=== PATIENT | female | born 1940 | race Asian ===

== ENCOUNTER 2017-04-15 18:23 | Inpatient (IN) | payer MEDICARE, OTHER ==
[~2017-04-15] VITALS: Ht 165.1 cm; Wt 59.1 kg
[~2017-04-15 18:23] MED LIST: AMLO5TAB4 PO; ASPI81TA3 PO; CLON0.1T14 PO; DILT180C75 PO; METF500T4 PO; MULT-754 PO; OMEP20CA16 PO; SYN112 PO
--- NOTE | 2017-04-15 19:11 | ERA ---
ER Documentation Chief Complaint Date/Time DATE: 04/15/17 TIME: 19:11 Chief Complaint chest pain, SOB and vomit since 4:30pm. Denies abd pain. HPI This is a 76-year-old woman brought in by family member for epigastric abdominal pain (chest pain) and complaints of multiple episodes of clear nonbloody nonbilious emesis over the last 2-3 days. Family member who is at the bedside states she began using peroxide teen just a few days ago for chronic depression and anxiety. She has had no fevers or chills, no loss of consciousness, no diarrhea, no blood per rectum or melena. Today she has been feeling weak and has been generally less responsive. ROS All systems reviewed and are negative except as per history of present illness. Medications Home Meds Active Scripts Diltiazem Hcl* (Cardizem CD*) 180 Mg Cap.sr.24h, 180 MG PO DAILY, #30 CAP 1 Refill Prov:EARL VALENCIA MD 07/02/16 Omeprazole* (Omeprazole*) 20 Mg Capsule.dr, 20 MG PO BID, #60 CAP Prov:EARL VALENCIA MD 07/02/16 Reported Medications Clonidine Hcl* (Catapres*) 0.1 Mg Tablet, 0.1 MG PO Q4H Y for HTN, TAB 07/01/16 Levothyroxine Sodium* (Levothyroxine Sodium*) 112 Mcg Tablet, 112 MCG PO BEFORE BREAKFAST, #30 TAB 07/01/16 Metformin* (Glucophage*) 500 Mg Tab, 500 MG PO WITH LUNCH DINNER, #60 TAB 05/23/16 Amlodipine Besylate* (Norvasc*) 5 Mg Tablet, 5 MG PO DAILY, TAB 05/23/16 Multivitamins W-Minerals/Lut (Centrum Silver Tablet) 1 Tab Tablet, 1 TAB PO BID 02/20/12 Aspirin* (Aspirin* Chew) 81 Mg Tab.chew, 81 MG PO DAILY 02/20/12 Allergies Allergies: Coded Allergies: No Known Allergy (Unverified , 02/20/12) PMhx/Soc Diabetes mellitus, hypothyroidism, hypercholesterolemia, hypertension, obstructive sleep apnea, neurofibromatosis, status post cholecystectomy, cholecystectomy, depression/anxiety with recent paroxetine use History of Surgery: Yes (hernia and thyroid, cataract surgery) Anesthesia Reaction: No Hx Neurological Disorder: No Hx Respiratory Disorders: Yes (COPD) Hx Cardiac Disorders: Yes (HTN, HYPERLIPIDS) Hx Psychiatric Problems: Yes (DEPRESSION) Hx Miscellaneous Medical Probl: Yes (DM) Hx Alcohol Use: No Hx Substance Use: No Hx Tobacco Use: No Smoking Status: Never smoker FmHx Family History: No diabetes Physical Exam Vitals Vital Signs Date Time Temp Pulse Resp B/P Pulse Ox O2 Delivery O2 Flow Rate FiO2 04/15/17 21:08 81 16 144/66 99 Room Air 04/15/17 19:38 83 18 162/79 97 Room Air 04/15/17 18:29 98.5 89 18 185/90 97 Physical Exam GENERAL: Well-developed, appears weak, dehydrated, eyes closed, afebrile HEENT: Dry mucous membranes, pink conjunctiva, no cervical spine tenderness or step-off deformities, no goiter, no jaundice or icterus, extraocular movements intact without pain. NEURO: Eyes closed, able to answer simple questions and follow simple commands, A & O 2, no focal deficits or facial asymmetry, no seizure activity CARDIAC: Regular rate and rhythm, no murmurs rubs or gallops LUNGS: Clear bilaterally no wheezing crackles or stridor ABDOMEN: Soft nontender, no guarding, no rigidity, no rebound, no psoas sign no obturator sign. Normoactive bowel sounds SKIN: Warm and dry to touch, no abrasions, contusions, or hematomas, no lacerations, no ecchymosis, no target lesions, and without ulcers EXTREMITIES: No clubbing cyanosis or edema, calves are bilaterally symmetrical, no Homans sign, no popliteal cord sign. Distal pulses equal and bilateral PSYCH: Unable to assess Result Diagram: 04/15/17183904/15/171839 Results 24 hrs Laboratory Tests Test 04/15/17 18:40 White Blood Count 9.610^3/ul Red Blood Count 4.2610^6/ul Hemoglobin 13.0g/dl Hematocrit 36.7% Mean Corpuscular Volume 86.2fl Mean Corpuscular Hemoglobin 30.5pg Mean Corpuscular Hemoglobin Concent 35.4g/dl Red Cell Distribution Width 11.4% Platelet Count 38981^3/UL Mean Platelet Volume 8.5fl Neutrophils % 70.6% Lymphocytes % 16.8% Monocytes % 9.5% Eosinophils % 2.2% Basophils % 0.4% Nucleated Red Blood Cells % 0.0/100WBC Neutrophils # 6.810^3/ul Lymphocytes # 1.610^3/ul Monocytes # 0.910^3/ul Eosinophils # 0.210^3/ul Basophils # 0.010^3/ul Nucleated Red Blood Cells # 0.010^3/ul Prothrombin Time 12.8Sec Prothrombin Time Ratio 1.0 INR International Normalized Ratio 0.96 Sodium Level 113mmol/L Potassium Level 3.7mmol/L Chloride Level 77mmol/L Carbon Dioxide Level 25mmol/L Anion Gap 15 Blood Urea Nitrogen 11mg/dl Creatinine 0.65mg/dl Glucose Level 145mg/dl Calcium Level 9.1mg/dl Total Bilirubin 0.0mg/dl Direct Bilirubin 0.00mg/dl Indirect Bilirubin 0.0mg/dl Aspartate Amino Transf (AST/SGOT) 30IU/L Alanine Aminotransferase (ALT/SGPT) 45IU/L Alkaline Phosphatase 97IU/L Troponin I < 0.012ng/ml Total Protein 8.2g/dl Albumin 4.9g/dl Globulin 3.30g/dl Albumin/Globulin Ratio 1.48 Lipase 151U/L Thyroid Stimulating Hormone (TSH) 1.740MIU/L Free Thyroxine 1.73ng/dl Free Triiodothyronine (T3) pg/mL 3.22pg/ml Current Medications Medications (Trade) Dose Ordered Sig/Keely Route PRN Reason Start Time Stop Time Status Last Admin Dose Admin Sodium Chloride (NS) 1,000 ml @ 1,000 mls/hr Q1H STAT IV 04/15/17 19:19 04/15/17 20:18 DC 04/15/17 19:35 Ondansetron HCl (Zofran Inj) 4 mg ONCE STAT IV 04/15/17 19:19 04/15/17 19:20 DC 04/15/17 19:34 Alprazolam 0.5 mg 0.5 mg ONCE ONCE PO 04/15/17 19:30 04/15/17 19:31 DC 04/15/17 19:34 Sodium Chloride 200 ml @ 100 mls/hr Q2H IV 04/15/17 20:00 04/15/17 20:27 Sodium Chloride (NS) 1,000 ml @ 100 mls/hr Q10H IV 04/15/17 20:38 IV Flush (NS 3 ml) 3 ml PER PROTOCOL IV 04/15/17 21:00 Ondansetron HCl (Zofran Inj) 4 mg Q6H PRN IV NAUSEA AND/OR VOMITING 04/15/17 21:00 Acetaminophen (Tylenol Tab) 650 mg Q6H PRN PO PAIN LEVEL 1-3 OR FEVER 04/15/17 21:00 Morphine Sulfate (morphine) 2 mg Q4H PRN IV PAIN LEVEL 7-10 04/15/17 21:00 Famotidine (Pepcid Iv) 20 mg DAILY IV 04/15/17 21:00 Enoxaparin Sodium (Lovenox) 30 mg DAILY SC 04/16/17 09:00 [facility] IV line was established patient was placed on compliance monitor rhythm strip revealed a sinus rhythm at about 80 bpm with upright P and T waves. Patient was afebrile. I administered 1 L normal saline intravenously and Zofran 4 mg IV for nausea, for suspected anxiety I administered alprazolam 0.5 mg p.o. Given the patient's epigastric pain and multiple episodes of vomiting I ordered a CT scan of the abdomen and pelvis. There was no acute inflammatory infectious pathology noted, no bowel obstruction noted. Please refer to radiologist dictation for full report. CBC was unremarkable, electrolytes revealed severe hyponatremia at 113, liver function tests are normal, troponin was negative. Thyroid panel was within normal limits. Given the patient's mental status changes and severe hyponatremia I ordered 3% hypertonic saline solution 200 cc over one hour. EKG performed, read by me revealed a normal sinus rhythm at 81 bpm with normal axis and a first-degree atrial ventricular block and a TN interval of 250 ms, narrow QRS complex, no concerning ST elevations or depressions noted. Patient recently started using paroxetine and was found to be altered and severely hyponatremic. Severe hyponatremia and SIADH syndrome are both adverse reactions of paroxetine use especially early on. I suspect her vomiting potentiated her hyponatremia. Patient will be admitted to telemetry setting for continued medical management and possible endocrinology consultation. Critical Care: Time: 45 minutes, this was time separate from other billable procedures. Treatments/Evaluations: Close monitoring and treatment of unstable vital signs, cardiorespiratory, and neurologic status, while maintaining tight balance of fluid, respiratory, and cardiac interventions. Departure Diagnosis: Primary Impression: Acute metabolic encephalopathy Additional Impressions: Acute hyponatremia SSRI (selective serotonin reuptake inhibitor) causing adverse effect in therapeutic use Qualified Code: T43.225A - SSRI (selective serotonin reuptake inhibitor) causing adverse effect in therapeutic use, initial encounter Dehydration Vomiting Qualified Code: R11.2 - Intractable vomiting with nausea, unspecified vomiting type First degree atrioventricular block Condition: Serious NEW SILVA MD Apr 15, 2017 19:11
[2017-04-15] MEDS ORDERED: ONDANSETRON 4 MG INJ IV STA (19:19)
[2017-04-15] MEDS ORDERED: SOD CHLORIDE 0.9% 1,000 ML IV STA (19:19)
[2017-04-15 19:26] LABS: ADD SCAN DIFF NO
[2017-04-15 19:28] LABS: BASOPHILS % 0.4 % (0.0-2.0); EOSINOPHILS # 0.2 10^3/ul (0.0-0.5); EOSINOPHILS % 2.2 % (0.0-7.0); HEMATOCRIT 36.7 % (37.0-47.0); LYMPHOCYTES # 1.6 10^3/ul (0.8-2.9); LYMPHOCYTES % 16.8 % (15.0-51.0); MEAN CORPUSCULAR HEMOGLOBIN 30.5 pg (29.0-33.0); MEAN CORPUSCULAR HGB CONC 35.4 g/dl (32.0-37.0); MEAN CORPUSCULAR VOLUME 86.2 fl (82.0-101.0); MEAN PLATELET VOLUME 8.5 fl (7.4-10.4); MONOCYTE # 0.9 10^3/ul (0.3-0.9); MONOCYTES % 9.5 % (0.0-11.0); NEUTROPHIL # 6.8 10^3/ul (1.6-7.5); NEUTROPHILS % 70.6 % (39.0-77.0); PLATELET COUNT 295 10^3/UL (140-415); RED BLOOD COUNT 4.26 10^6/ul (4.20-5.40); RED CELL DISTRIBUTION WIDTH 11.4 % (11.5-14.5); WHITE BLOOD COUNT 9.6 10^3/ul (4.8-10.8)
[2017-04-15] MEDS ORDERED: ALPRAZOLAM 0.25 MG TAB PO ONE (19:30)
[2017-04-15 19:33] LABS: ALANINE AMINOTRANSFERASE 45 IU/L (13-69); ALBUMIN 4.9 g/dl (3.3-4.9); ALBUMIN/GLOBULIN RATIO 1.48; ALKALINE PHOSPHATASE 97 IU/L (42-121); ANION GAP 15 (8-16); ASPARTATE AMINO TRANSFERASE 30 IU/L (15-46); BLOOD UREA NITROGEN 11 mg/dl (7-20); CALCIUM 9.1 mg/dl (8.4-10.2); CARBON DIOXIDE 25 mmol/L (21-31); CHLORIDE 77 mmol/L (97-110); CREATININE 0.65 mg/dl (0.44-1.00); GLUCOSE 145 mg/dl (70-220); POTASSIUM 3.7 mmol/L (3.5-5.1); TOTAL PROTEIN 8.2 g/dl (6.1-8.1)
[2017-04-15 19:40] LABS: SODIUM 113 mmol/L (135-144)
[2017-04-15 19:49] LABS: TROPONIN-I < 0.012 ng/ml (0.00-0.12)
[2017-04-15 19:59] LABS: INR 0.96; PROTIME 12.8 Sec (12.2-14.2)
--- NOTE | 2017-04-15 20:15 | RADRPT ---
PROCEDURE: CT Abdomen and Pelvis without contrast. CLINICAL INDICATION: Abdominal and pelvic pain. TECHNIQUE: CT scan of the abdomen and pelvis without contrast was performed. Coronal and sagittal reformatted images were obtained from the axial source images. Images were reviewed on a high-[employer] PACS workstation. Total exam DLP is 439.20 mGy-cm. CTDIvol is 9.17 mGy. One or more of the fo llowin dose reduction techniques were used: Automated exposure control, adjustment of the mA and/or kV according to patient size, use of iterative reconstruction technique. COMPARISON: None. FINDINGS: The lung bases are normal. There is no pleural effusion or pericardial effusion. The heart is enla rged. The liver is normal in size and attenuation. There is no focal hepatic lesion. The gallbladder is not visualized indicating it is probably surgically absent. The spleen is normal in size. There is no focal splenic lesion. Both adrenals are normal with no enlargement or mass. The pancreas is unremarkable with no mass or evidence of pancreatitis. There is no renal mass or hydronephrosis. There is no renal calculus or ureteral calculus. The abdominal aorta is not dilated. There is calcification in the aorta consistent with atheroscler osis. There is no retroperitoneal lymphadenopathy or mass. There is no pelvic lymphadenopathy or mass. There is a Lippes Loop IUD in satisfactory position with in the endometrial canal. The bladder and distal ureters are normal. The periappendiceal region is unremarkable with no evidence of appendicitis. The bowel and mesentery are normal. There is no free fluid or free gas. There are degenerative changes of the spine and hips. There is no fracture or lytic lesion. The os seous structures are otherwise unremarkable with no fracture or lytic lesion. IMPRESSION: 1. Cardiomegaly. 2. Gallbladder not seen indicating it is probably surgically absent. 3. Atherosclerosis. 4. IUD in satisfactory position. 5. Degenerative changes of the spine and hips. 6. Otherwise unremarkable noncontrast CT scan of the abdomen and pelvis. RPTAT: QQ .Donavan Barrera MD, MD Date Time Electronically viewed and signed by .Donavan Barrera MD, on 04/15/2017 20:14 .R/
[2017-04-15] MEDS: NACL 3% 200 ML IV SCH ×2 (20:27→22:00)
[2017-04-15] MEDS ORDERED: ONDANSETRON 4 MG INJ IV PRN (21:00)
[2017-04-15] MEDS ORDERED: NACL 0.9% 3 ML SYG IV SCH (21:00)
[2017-04-15] MEDS ORDERED: morphine 2 MG INJ IV PRN (21:00)
[2017-04-15 21:17] LABS: FREE T3 3.22 pg/ml (2.77-5.27)
[2017-04-15 21:31] LABS: THYROID STIMULATING HORMONE 1.74 MIU/L (0.465-4.680)
[2017-04-15] MEDS: FAMOTIDINE 20 MG INJ IV SCH (22:03)
[2017-04-15] MEDS: SOD CHLORIDE 0.9% 1,000 ML IV SCH (22:09)
[2017-04-15] MEDS ORDERED: SOD CHLORIDE 0.9% 1,000 ML IV ONE (22:30)
[2017-04-16 02:29] LABS: ADD UMIC YES; UR ASCORBIC ACID NEGATIVE (NEGATIVE); UR BILIRUBIN (Dip) NEGATIVE (NEGATIVE); UR BLOOD (Dip) NEGATIVE (NEGATIVE); UR CLARITY CLEAR (CLEAR); UR COLOR STRAW (YELLOW); UR GLUCOSE (Dip) 1+ mg/dL (NEGATIVE); UR KETONES (Dip) NEGATIVE (NEGATIVE); UR LEUKOCYTE ESTERASE (Dip) NEGATIVE Leu/ul (NEGATIVE); UR NITRITE (Dip) NEGATIVE (NEGATIVE); UR RBC 6 /HPF (0-5); UR SPECIFIC GRAVITY (Dip) 1.008 (1.003-1.030); UR TOTAL PROTEIN (Dip) 2+ mg/dl (NEGATIVE); UR UROBILINOGEN (Dip) NEGATIVE (NEGATIVE)
[2017-04-16 05:49] LABS: ADD SCAN DIFF NO
[2017-04-16 05:53] LABS: BASOPHILS % 0.5 % (0.0-2.0); EOSINOPHILS # 0.2 10^3/ul (0.0-0.5); EOSINOPHILS % 2.3 % (0.0-7.0); HEMATOCRIT 35.2 % (37.0-47.0); HEMOGLOBIN 12.4 g/dl (12.0-16.0); LYMPHOCYTES # 1.2 10^3/ul (0.8-2.9); MEAN CORPUSCULAR HEMOGLOBIN 31.1 pg (29.0-33.0); MEAN CORPUSCULAR HGB CONC 35.2 g/dl (32.0-37.0); MEAN CORPUSCULAR VOLUME 88.2 fl (82.0-101.0); MEAN PLATELET VOLUME 8.5 fl (7.4-10.4); MONOCYTES % 11.9 % (0.0-11.0); NEUTROPHIL # 5.6 10^3/ul (1.6-7.5); NEUTROPHILS % 69.9 % (39.0-77.0); PLATELET COUNT 271 10^3/UL (140-415); RED BLOOD COUNT 3.99 10^6/ul (4.20-5.40); RED CELL DISTRIBUTION WIDTH 11.6 % (11.5-14.5)
[2017-04-16 06:21] LABS: ALBUMIN 4.3 g/dl (3.3-4.9); ALBUMIN/GLOBULIN RATIO 1.65; BILIRUBIN,INDIRECT 0.2 mg/dl (0-1.1); BILIRUBIN,TOTAL 0.2 mg/dl (0.2-1.3); CALCIUM 8.2 mg/dl (8.4-10.2); CREATININE 0.63 mg/dl (0.44-1.00); POTASSIUM 4.1 mmol/L (3.5-5.1); TOTAL PROTEIN 6.9 g/dl (6.1-8.1)
[2017-04-16 08:08] VITALS: TEMP 98.3
[2017-04-16] MEDS: SOD CHLORIDE 0.9% 1,000 ML IV SCH ×2 (08:27→16:38)
[2017-04-16] MEDS: ENOXAPARIN 30 MG/0.3 ML SYG SC SCH (09:00)
[2017-04-16 09:21] VITALS: BP 168/79; RESP 16
[2017-04-16 09:30] VITALS: Ht 165.1 cm; Wt 59.1 kg
[2017-04-16] MEDS: FAMOTIDINE 20 MG INJ IV SCH (09:30)
[2017-04-16] MEDS ORDERED: DEXTROSE 50% 50 ML SYRINGE IV PRN ×2 (11:30)
[2017-04-16] MEDS ORDERED: GLUCOSE GEL 15 GRAM TUBE PO PRN ×2 (11:30)
[2017-04-16] MEDS ORDERED: GLUCAGON 1 MG INJ IM PRN (11:30)
[2017-04-16] MEDS ORDERED: GLUCOSE GEL 15 GRAM TUBE BUCCAL PRN (11:30)
[2017-04-16] MEDS ORDERED: INSULIN ASPART [NOVOLOG] 3 ML PEN SC SCH ×2 (12:15→18:00)
[2017-04-16] MEDS ORDERED: LOSA50TA6 PO (12:31)
[2017-04-16] MEDS ORDERED: PARO-37 PO (12:31)
[2017-04-16] MEDS ORDERED: TRAM50TA2 PO (12:31)
[2017-04-16] MEDS ORDERED: LOVA40TA PO (12:31)
[2017-04-16] MEDS ORDERED: [UNRECOGNIZED DRUG - CODE] MC (12:31)
[2017-04-16] MEDS ORDERED: RAME8TAB10 PO (12:31)
[2017-04-16] MEDS ORDERED: FLUT16SP17 NASAL (12:31)
--- NOTE | 2017-04-16 16:41 | HP ---
DATE OF ADMISSION: 04/16/2017 CHIEF COMPLAINT: Chest pain, shortness of breath, nausea, and vomiting. HISTORY OF PRESENT ILLNESS: The patient is a 76-year-old [place]cu[place] female with history of hypothyroi dism, status post thyroidectomy many years ago, hypertension, diabetes, COPD, and depression. The francisco javier rosa presented to the emergency room with complaints of epigastric abdominal pain and multiple epi sodes of clear, nonbloody, nonbilious emesis over the last couple of days. The patient stated that she had emesis after ingestion of food. The patient also started on new medication of paroxetine by primary care physician for depression and anxiety. On the evaluation in the emergency room, the mercy hansen had a low sodium, was given IV fluids with no leukocytosis, no fevers. The patient underwent a CT of the abdomen and pelvis which revealed cardiomegaly, absent gallbladder, atherosclerosis, IUD in satisfactory position, degenerative changes of the spine and hips. Otherwise, unremarkable nonc ontrast CT of abdomen and pelvis. The patient was given hypertonic saline for hyponatremia with imp rovement in sodium. The patient also underwent a 12-lead EKG which revealed sinus rhythm with first degree atrioventricular block. The patient's troponin was 0.012 on admission. The patient was giv en Zofran for nausea, and the patient was admitted for further evaluation and management to medical surgical floor. PAST MEDICAL HISTORY: Per HPI. PAST SURGICAL HISTORY: Status post hernia repair many years ago, status post thyroidectomy, status post cholecystectomy. FAMILY HISTORY: Noncontributory. SOCIAL HISTORY: The patient lives at home with her family. The patient denies any tobacco use, den ies any alcohol use, denies any illicit drug use. ALLERGIES: NO KNOWN ALLERGIES. HOME MEDICATIONS: Include 1. Oxybutynin. 2. Paroxetine. 3. Lovastatin. 4. Fluticasone nasal spray. 5. Rozerem. 6. Tramadol p.r.n. 7. Levothyroxine. 8. Omeprazole. 9. Cozaar 10. Amlodipine. 11. Metformin. 12. Centrum silver multivitamins. 13. Aspirin. The patient does not remember the exact dose. REVIEW OF SYSTEMS: A 12-point review of systems is negative unless what mentioned in the HPI. PHYSICAL ASSESSMENT: GENERAL: Well-developed, well-nourished female in no acute distress. VITAL SIGNS: Temperature is 98.7, pulse is 69, blood pressure 168/79, respiratory rate 16, oxygen s aturation 99% on room air. HEENT: Head is atraumatic, normocephalic. Pupils equal, round, reactive to light and accommodation . Oral mucosa is pink and moist. NECK: Supple. No cervical lymphadenopathy, no thyromegaly. CHEST: Lungs clear bilaterally. There are no rhonchi, wheezes, rales noted. CARDIOVASCULAR: Normal S1, S2. No murmurs, gallops, clicks, rubs noted. ABDOMEN: Round, soft, nondistended, nontender. Bowel sounds present. No guarding, no rebound tend erness. EXTREMITIES: No edema, clubbing, cyanosis. SKIN: There is no rash, petechiae noted. NEUROLOGIC: The patient is awake, alert, and oriented x4. No focal deficits noted. Motor strength 5/5 in all extremities. LABORATORY DATA: On admission, CBC: White blood cells 9.6, hemoglobin 13.0, hematocrit 36.7, plate lets 295. Chemistry: Sodium is 113. Repeat Sodium is 134, potassium 3.7, chloride 77, carbon diox richard 25, anion gap 15, BUN 11, creatinine 0.65, glucose 145, calcium 9.1, AST 30, ALT 45, alkaline ph osphatase 97, lipase 151. ASSESSMENT AND PLAN: 1. Intractable nausea and vomiting. We will continue Zofran p.r.n. for nausea and Pepcid for pepti c ulcer disease prophylaxis. Dr. Lopez will be following the patient from gastroenterology consult ation. 2. Chest pain, rule out acute coronary syndrome. We will obtain cardiac enzymes x3. 3. Hypothyroidism. We will continue Synthroid. 4. Possible adverse reaction to selective serotonin reuptake inhibitor. We will hold paroxetine fo r now. 5. Acute hyponatremia, resolving. 6. Acute metabolic encephalopathy secondary to severe hyponatremia. 7. Chronic obstructive pulmonary disease. We will continue Advair, continue breathing treatment p. r.n. for shortness of breath. 8. Hypertension. Continue patient's home antihypertensive medication. 9. Diabetes mellitus. Continue metformin and NovoLog per mild algorithm sliding scale, carbohydrat e-controlled diet. Further recommendations based on clinical course. Plan of care discussed with Dr. Hernandez. Dictated By: OVIDIO YBARRA [employer]PORATE [employer] PREPARER for ROSIE HERNANDEZ MD SR/EARLENE Conf#: [id number] DID#: [id number]
[2017-04-16] MEDS: metFORMIN 500 MG TAB GTB SCH (17:29)
--- NOTE | 2017-04-16 18:40 | CONS ---
DATE OF ADMISSION: 04/16/2017 DATE OF CONSULTATION: 04/16/[address] Marshall and Dr. Zaman: Thank you for asking me to see Mrs. Lee in GI consultation. HISTORY OF PRESENT ILLNESS: The patient, as you know, is a 76-year-old Sudanese female who is admit bettye to the hospital because of history of persistent vomiting and has been going on for the past 1 w [place] [facility]. Also, she has difficulty in swallowing the food and would get stuck in the throat. She needs to drink a lot of water to get the food down. She has significant heartburn from time to time. REVIEW OF SYSTEM: Indicates she has history of diabetes, high cholesterol, hypertension, hypothyroi dism, sleep apnea, neurofibromatosis, granulomatous bronchitis, status post cholecystectomy. MEDICATIONS PRIOR TO THE ADMISSION INCLUDE: 1. Omeprazole. 2. Hydralazine. 3. Levothyroxine. 4. Metformin. 5. Losartan. 6. Aspirin. 7. Amlodipine. 8. Lovastatin. SOCIAL HISTORY: The patient does not smoke or drink. PHYSICAL EXAMINATION: GENERAL: The patient is a 76-year-old Sudanese female who at this time is alert, well built. VITAL SIGNS: She is afebrile. CARDIOVASCULAR: Normal heart sounds. RESPIRATORY: Normal breath sounds. ABDOMEN: Showed unremarkable findings. LABORATORY WORKUP: WBC count is 8000, hemoglobin 12.4. Sodium is 134, potassium 4.1, bilirubin 0.2 8, AST 26, ALT 32, alkaline phosphatase 66, lipase is 151. CAT scan of the abdomen shows evidence o f cardiomegaly, absent gallbladder from the surgery, IUD replaced and arthritis. CLINICAL IMPRESSION: The patient presenting with history of persistent vomiting, rule out diabetic gastroparesis, rule out peptic ulcer disease, esophagitis. Rule out Petra of the esophagus, rule out choledocholithiasis, which I doubt very much other problems as mentioned above. PLAN: Recommend EGD and recommend a liver panel to be repeated. Once again, Dr. Zaman, thank you for this consultation. Dictated By: MARCIO GRAHAM/NTS Conf#: [id number] DID#: [id number] CC: EARL VALENCIA MD;*EndCC*
[2017-04-16 19:56] VITALS: BP 166/74; RESP 18
[2017-04-16] MEDS: ACCU-CHEK XX SCH (21:00)
[2017-04-16] MEDS: hydrALAzine 20 MG INJ IV PRN (21:24)
[2017-04-16] MEDS: SALMETEROL/FLUTICASONE 250/50 INHA INH SCH (21:25)
[2017-04-17] VITALS (13 sets, daily range): BP systolic 132–181; BP diastolic 63–86; PULSE 75–108; RESP 15–23
[2017-04-17] MEDS: SOD CHLORIDE 0.9% 1,000 ML IV SCH ×5 (01:00→22:38)
[2017-04-17] MEDS: ACCU-CHEK XX SCH ×5 (01:03→21:00)
[2017-04-17] MEDS ORDERED: ACCU-CHEK XX SCH (02:00)
--- NOTE | 2017-04-17 02:02 | RADRPT ---
PROCEDURE: XR Chest. CLINICAL INDICATION: Preoperative evaluation. TECHNIQUE: Single frontal view of the chest. COMPARISON: 07/01/2016. FINDINGS: Cardiomegaly with atherosclerotic calcifications in the tortuous thoracic aorta. New mild right reena g base atelectasis versus airspace disease. previously seen atelectasis at the left lung base is re solved. The lungs are clear. No signs of pleural fluid or pneumothorax are seen. The osseous structu res and soft tissues are unremarkable. IMPRESSION: 1. Cardiomegaly and calcified tortuous thoracic aorta. 2. Mild right lung base atelectasis versus airspace disease. RPTAT: [facility] Physician Branden Date Time Electronically viewed and signed by Physician Branden on 04/17/2017 02:02 RS/
[2017-04-17 05:59] LABS: ADD SCAN DIFF NO
[2017-04-17 06:20] LABS: BASOPHIL # 0.1 10^3/ul (0.0-0.1); BASOPHILS % 0.9 % (0.0-2.0); EOSINOPHILS # 0.4 10^3/ul (0.0-0.5); EOSINOPHILS % 5.2 % (0.0-7.0); HEMATOCRIT 36.8 % (37.0-47.0); HEMOGLOBIN 12.6 g/dl (12.0-16.0); LYMPHOCYTES # 1.2 10^3/ul (0.8-2.9); LYMPHOCYTES % 15.3 % (15.0-51.0); MEAN CORPUSCULAR HGB CONC 34.2 g/dl (32.0-37.0); MEAN CORPUSCULAR VOLUME 90.4 fl (82.0-101.0); MEAN PLATELET VOLUME 8.8 fl (7.4-10.4); MONOCYTE # 0.8 10^3/ul (0.3-0.9); MONOCYTES % 10.9 % (0.0-11.0); NEUTROPHIL # 5.1 10^3/ul (1.6-7.5); NEUTROPHILS % 67.2 % (39.0-77.0); PLATELET COUNT 287 10^3/UL (140-415); RED BLOOD COUNT 4.07 10^6/ul (4.20-5.40); WHITE BLOOD COUNT 7.5 10^3/ul (4.8-10.8)
[2017-04-17 07:07] LABS: CALCIUM 8.3 mg/dl (8.4-10.2); CREATININE 0.72 mg/dl (0.44-1.00); POTASSIUM 3.8 mmol/L (3.5-5.1)
[2017-04-17] MEDS: metFORMIN 500 MG TAB GTB SCH (08:05)
[2017-04-17] MEDS: SALMETEROL/FLUTICASONE 250/50 INHA INH SCH ×2 (08:31→22:03)
[2017-04-17] MEDS: FAMOTIDINE 20 MG INJ IV SCH (08:32)
[2017-04-17] MEDS: hydrALAzine 20 MG INJ IV PRN ×2 (08:32→22:09)
[2017-04-17] MEDS: ENOXAPARIN 30 MG/0.3 ML SYG SC SCH ×2 (09:00→14:48)
[2017-04-17] MEDS ORDERED: PROPOFOL 20 ML ONE (13:15)
--- NOTE | 2017-04-17 14:45 | PN ---
Date/Time of Note Date/Time of Note DATE: 04/17/17 TIME: 14:35 Assessment/Plan VTE Prophylaxis VTE Prophylaxis Intervention: SCD's Lines/Catheters IV [facility]from [facility] Saline Lock Urinary Cath still in place: No Assessment/Plan Chief Complaint/Hosp Course Patient's pending EGD today, denies any nausea vomiting denies chest pain denies shortness of breath. ASSESSMENT AND PLAN: 1. Intractable nausea and vomiting. Continue Zofran p.r.n. for nausea. Dr. Lopez is following the patient from gastroenterology consultation. Pending upper endoscopy today. 2. Chest pain, rule out acute coronary syndrome. Dr. Denson is asked to see patient in cardiology consultation. 3. Hypothyroidism. Continue Synthroid. 4. Possible adverse reaction to selective serotonin reuptake inhibitor. Hold paroxetine for now. 5. Acute hyponatremia, resolving. 6. Acute metabolic encephalopathy secondary to severe hyponatremia. 7. Chronic obstructive pulmonary disease. Continue Advair, continue breathing treatment p.r.n. for shortness of breath. 8. Hypertension. Continue patient's home antihypertensive medication. 9. Diabetes mellitus. Continue metformin and NovoLog per mild algorithm sliding scale, carbohydrate-controlled diet. Further recommendations based on clinical course. Plan of care discussed with Dr. Zaman. Problems: Exam/Review of Systems Vital Signs Vitals Vital Signs Date Time Temp Pulse Resp B/P Pulse Ox O2 Delivery O2 Flow Rate FiO2 04/17/17 14:07 88 17 155/80 97 Room Air 04/17/17 13:53 98.0 Intake and Output 04/16/17 04/16/17 04/17/17 15:00 23:00 07:00 Intake Total 860 ml 1140 ml Output Total 0 ml Balance 860 ml 1140 ml Exam Constitutional: alert, oriented Head: atraumatic, normocephalic Neck: supple Respiratory: normal air movement Cardiovascular: nl pulses Gastrointestinal: non-tender, soft Extremities: normal pulses Neurological: nl mental status Results Result Diagram: 04/17/17 0530 04/17/17 0530 Results 24 hrs Laboratory Tests Test 04/16/17 17:17 04/16/17 20:42 04/17/17 05:30 04/17/17 08:15 Bedside Glucose 157 101 112 White Blood Count 7.5 Red Blood Count 4.07 L Hemoglobin 12.6 Hematocrit 36.8 L Mean Corpuscular Volume 90.4 Mean Corpuscular Hemoglobin 31.0 Mean Corpuscular Hemoglobin Concent 34.2 Red Cell Distribution Width 12.0 Platelet Count 287 Mean Platelet Volume 8.8 Neutrophils % 67.2 Lymphocytes % 15.3 Monocytes % 10.9 Eosinophils % 5.2 Basophils % 0.9 Nucleated Red Blood Cells % 0.0 Neutrophils # 5.1 Lymphocytes # 1.2 Monocytes # 0.8 Eosinophils # 0.4 Basophils # 0.1 Nucleated Red Blood Cells # 0.0 Sodium Level 131 L Potassium Level 3.8 Chloride Level 96 L Carbon Dioxide Level 28 Anion Gap 11 Blood Urea Nitrogen 10 Creatinine 0.72 Glucose Level 110 Calcium Level 8.3 L Test 04/17/17 11:25 Bedside Glucose 103 Medications Medications Current Medications Sodium Chloride (NS) 1,000 ml @ 100 mls/hr Q10H IV Last administered on 09:25; Admin Dose 100 MLS/HR; Start 04/15/17 at 20:38 Ondansetron HCl (Zofran Inj) 4 mg Q6H PRN IV NAUSEA AND/OR VOMITING; Start at 21:00 Acetaminophen (Tylenol Tab) 650 mg Q6H PRN PO PAIN LEVEL 1-3 OR FEVER; Start at 21:00 Morphine Sulfate (morphine) 2 mg Q4H PRN IV PAIN LEVEL 7-10; Start 04/15/17 at 21:00 Famotidine (Pepcid Iv) 20 mg DAILY IV Last administered on 04/17/17 08:32; Admin Dose 20 MG; Start 04/15/17 at 21:00 Enoxaparin Sodium (Lovenox) 30 mg DAILY SC ; Start 04/16/17 at 09:00 Diagnostic Test (Pha) (Accu-Chek) Check 2 am Accucheck only if... 02 XX ; Start 04/17/17 at 02:00 Miscellaneous Information 1 ea NOTE XX ; Start 04/16/17 at 11:30 Glucose (Glutose) 15 gm Q15M PRN PO DECREASED GLUCOSE; Start 04/16/17 at 11:30 Glucose (Glutose) 22.5 gm Q15M PRN PO DECREASED GLUCOSE; Start 04/16/17 at 11: 30 Dextrose (D50w Syringe) 25 ml Q15M PRN IV DECREASED GLUCOSE; Start 04/16/17 at 11:30 Dextrose (D50w Syringe) 50 ml Q15M PRN IV DECREASED GLUCOSE; Start 04/16/17 at 11:30 Glucagon (Glucagen) 1 mg Q15M PRN IM DECREASED GLUCOSE; Start 04/16/17 at 11:30 Glucose (Glutose) 15 gm Q15M PRN BUCCAL DECREASED GLUCOSE; Start 04/16/17 at 11 :30 Salmeterol Xinafoate/ Fluticasone (Advair 250/50 Diskus) 1 inh BID INH Last administered on 04/17/17 08:31; Admin Dose 1 INH; Start 04/16/17 at 21:00 Hydralazine HCl (Apresoline) 10 mg Q6H PRN IV FOR SBP GREATER THAN 160 Last administered on 04/17/17 08:32; Admin Dose 10 MG; Start 04/16/17 at 21:30 OVIDIO YBARRA Apr 17, 2017 14:44
--- NOTE | 2017-04-17 15:09 | CONS ---
Date/Time of Note Date/Time of Note DATE: 04/17/17 TIME: 15:04 Assessment/Plan Assessment/Plan Additional Assessment/Plan Nausea, vomiting, shortness of breath and chest pain Hypertension Diabetes -Patient feeling better at the current time with less symptoms of nausea, shortness of breath and chest pain. Symptoms are inconsistent and occasional with activity and occasionally at rest. Initial ECG with no significant ischemic abnormalities as well as first set of troponins. Will obtain additional set of troponins, check echocardiogram. Consultation Date/Type/Reason Admit Date/Time Apr 16, 2017 at 06:16 Type of Consultation: cv Reason for Consultation Cardiac evaluation Hx of Present Illness This is a 76-year-old female with past medical history of COPD, hypertension, diabetes, depression who presents with nausea and vomiting worsening over the past 2-3 days prior to admission. Symptoms occur with any eating. She also developed symptoms of shortness of breath at times when she feels nauseous as well as chest pain. She does complain of intermittent chest pain. It occurs approximately once per month. At times at rest and at times with activity. Chest pain at times is burning like occasionally heavy or occasionally sharp. Symptoms are not consistent and do not occur with activity every time. 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 She is currently feeling better. She underwent EGD today and results are currently pending. 12 point review of systems was performed with all pertinent positives and negatives mentioned above and all else negative Past Medical History Medical History: diabetes, high cholesterol, hypertension Past Surgical History Thyroid surgery Past Surgical Hx: cholecystectomy Family History Significant Family History: other (Children with coronary artery disease and "enlarged heart") Social History Alcohol Use: none Smoking Status: Never smoker Other Social History Lives at home with daughter Exam/Review of Systems Vital Signs Vitals Vital Signs Date Time Temp Pulse Resp B/P Pulse Ox O2 Delivery O2 Flow Rate FiO2 04/17/17 14:40 98 18 156/71 97 Room Air 04/17/17 13:53 98.0 Intake and Output 04/16/17 04/16/17 04/17/17 15:00 23:00 07:00 Intake Total 860 ml 1140 ml Output Total 0 ml Balance 860 ml 1140 ml Exam No apparent distress, sitting in chair and eating lunch Constitutional: alert, oriented Head: normocephalic Neck: supple Respiratory: clear to auscultation, normal air movement Cardiovascular: other (S1-S2 heard), regular rate and rhythm Gastrointestinal: bowel sounds, non-tender, other (No guarding), soft Extremities: other (No edema) Results Result Diagram: 04/17/17 0530 04/17/17 0530 Results 24 hrs Laboratory Tests Test 04/16/17 17:17 04/16/17 20:42 04/17/17 05:30 04/17/17 08:15 Bedside Glucose 157 101 112 White Blood Count 7.5 Red Blood Count 4.07 L Hemoglobin 12.6 Hematocrit 36.8 L Mean Corpuscular Volume 90.4 Mean Corpuscular Hemoglobin 31.0 Mean Corpuscular Hemoglobin Concent 34.2 Red Cell Distribution Width 12.0 Platelet Count 287 Mean Platelet Volume 8.8 Neutrophils % 67.2 Lymphocytes % 15.3 Monocytes % 10.9 Eosinophils % 5.2 Basophils % 0.9 Nucleated Red Blood Cells % 0.0 Neutrophils # 5.1 Lymphocytes # 1.2 Monocytes # 0.8 Eosinophils # 0.4 Basophils # 0.1 Nucleated Red Blood Cells # 0.0 Sodium Level 131 L Potassium Level 3.8 Chloride Level 96 L Carbon Dioxide Level 28 Anion Gap 11 Blood Urea Nitrogen 10 Creatinine 0.72 Glucose Level 110 Calcium Level 8.3 L Test 04/17/17 11:25 Bedside Glucose 103 Medications Medications Current Medications Sodium Chloride (NS) 1,000 ml @ 100 mls/hr Q10H IV Last administered on 09:25; Admin Dose 100 MLS/HR; Start 04/15/17 at 20:38 Ondansetron HCl (Zofran Inj) 4 mg Q6H PRN IV NAUSEA AND/OR VOMITING; Start at 21:00 Acetaminophen (Tylenol Tab) 650 mg Q6H PRN PO PAIN LEVEL 1-3 OR FEVER; Start at 21:00 Morphine Sulfate (morphine) 2 mg Q4H PRN IV PAIN LEVEL 7-10; Start 04/15/17 at 21:00 Famotidine (Pepcid Iv) 20 mg DAILY IV Last administered on 04/17/17 08:32; Admin Dose 20 MG; Start 04/15/17 at 21:00 Enoxaparin Sodium (Lovenox) 30 mg DAILY SC Last administered on 04/17/17 14:48 ; Admin Dose 30 MG; Start 04/16/17 at 09:00 Diagnostic Test (Pha) (Accu-Chek) Check 2 am Accucheck only if... 02 XX ; Start 04/17/17 at 02:00 Miscellaneous Information 1 ea NOTE XX ; Start 04/16/17 at 11:30 Glucose (Glutose) 15 gm Q15M PRN PO DECREASED GLUCOSE; Start 04/16/17 at 11:30 Glucose (Glutose) 22.5 gm Q15M PRN PO DECREASED GLUCOSE; Start 04/16/17 at 11: 30 Dextrose (D50w Syringe) 25 ml Q15M PRN IV DECREASED GLUCOSE; Start 04/16/17 at 11:30 Dextrose (D50w Syringe) 50 ml Q15M PRN IV DECREASED GLUCOSE; Start 04/16/17 at 11:30 Glucagon (Glucagen) 1 mg Q15M PRN IM DECREASED GLUCOSE; Start 04/16/17 at 11:30 Glucose (Glutose) 15 gm Q15M PRN BUCCAL DECREASED GLUCOSE; Start 04/16/17 at 11 :30 Salmeterol Xinafoate/ Fluticasone (Advair 250/50 Diskus) 1 inh BID INH Last administered on 04/17/17 08:31; Admin Dose 1 INH; Start 04/16/17 at 21:00 Hydralazine HCl (Apresoline) 10 mg Q6H PRN IV FOR SBP GREATER THAN 160 Last administered on 04/17/17 08:32; Admin Dose 10 MG; Start 04/16/17 at 21:30 Amlodipine Besylate (Norvasc) 5 mg DAILY PO ; Start 04/18/17 at 09:00 Aspirin (Aspirin) 81 mg DAILY PO ; Start 04/18/17 at 09:00 Diltiazem HCl (Cardizem Cd) 180 mg DAILY PO ; Start 04/18/17 at 09:00 Losartan Potassium (Cozaar) 50 mg DAILY PO ; Start 04/18/17 at 09:00 Atorvastatin Calcium (Lipitor) 10 mg DAILY@21 PO ; Start 04/18/17 at 21:00 Procedures Procedures ECG demonstrates sinus rhythm, normal QRS duration, no significant ischemic STT wave abnormality Grant Denson DO Apr 17, 2017 15:08
[2017-04-17] MEDS: metFORMIN 500 MG TAB PO SCH (17:21)
--- NOTE | 2017-04-17 17:43 | RADRPT ---
Echocardiogram Report Patient Name: BRUNA LEA Gender: Female Date: 1940 Study Date: 17-Apr-2017 Processing Associate: Danny Coles [facility] Location: 626 Ref. Physician: GRANT DENSON Quality: Good Procedures: Transthoracic echocardiogram with complete 2D, M-Mode, and doppler examination. Indications: Chest Pain. 2D/M Mode Doppler Measurement Value Normal Ranges Measurement Value Normal Ranges LVIDd 2D 3.8 3.5 - 5.6 cm AV Peak Celestino 1.7 m/sec LVIDs 2D 2.7 2.1 - 4.1 cm AV Peak PG 11.0 mmHg FS 2D 29.4 % LVOT Peak Celestino 1.1 m/sec LVPWd 2D 1.2 0.6 - 1.1 cm LVOT Peak PG 5.0 mmHg IVSd 2D 1.3 0.6 - 1.1 cm MV E Peak Celestino 0.7 m/sec IVS/LVPW 2D 1.1 MV A Peak Celestino 1.0 m/sec AoR Diam 2D 3.2 2.0 - 3.7 cm MV E/A 0.7 LA/Ao 2D 1 0 - 1 MV Decel Time 151 msec EDV 2D 56.6 cm3 MV E/A 0.7 ESV 2D 19.9 cm3 TR Peak Celestino 3.0 m/sec LA Dimen 2D 2.5 2.3 - 4.0 cm TR Peak PG 36.0 mmHg RVSP 39.0 mmHg Findings Left Ventricle: Normal left ventricular systolic function. Normal left ventricular cavity size. Mild concentric left ventricular hypertrophy. Ejection fraction is visually estimated at 65 %. Tissue Doppler/Mitral Doppler indices are consistent with impaired relaxation (Stage I diastolic dysfunction). Right Ventricle: Normal right ventricular size. Normal right ventricular systolic function. Left Atrium: The left atrium is normal in size. Right Atrium: The right atrium is normal in size. Mitral Valve: Normal appearance and function of the mitral valve with trace physiologic regurgitation. Aortic Valve: No significant aortic stenosis or insufficiency. Aortic cusps appear mildly calcified. Tricuspid Valve: Normal appearance of the tricuspid valve. Estimated peak PA systolic pressure 39 mmHg. There is mild tricuspid regurgitation. Pulmonic Valve: Pulmonic valve not well visualized. Pericardium: Normal pericardium with no significant pericardial effusion. Aorta: Normal aortic root. IVC: Normal size and normal respiratory collapse consistent with normal right atrial pressure. Conclusions Normal left ventricular systolic function. Normal left ventricular cavity size. Mild concentric left ventricular hypertrophy. Ejection fraction is visually estimated at 65 %. Tissue Doppler/Mitral Doppler indices are consistent with impaired relaxation (Stage I diastolic dysfunction). Normal right ventricular size. Normal right ventricular systolic function. The left atrium is normal in size. The right atrium is normal in size. Estimated peak PA systolic pressure 39 mmHg. There is mild tricuspid regurgitation. No significant valvular stenosis or regurgitation seen of remaining visualized valves. Normal pericardium with no significant pericardial effusion. Electronically Signed By: Grant Denson 17-Apr-2017 17:43:17 -0700 Patient Name: BRUNA LEA Study Date: 17-Apr-2017 [id number]
[2017-04-18] VITALS (8 sets, daily range): BP systolic 135–176; BP diastolic 61–95; PULSE 76–97; RESP 18
[2017-04-18] MEDS: ACETAMINOPHEN 325 MG TAB PO PRN (00:46)
[2017-04-18] MEDS: ACCU-CHEK XX SCH ×5 (02:00→20:13)
[2017-04-18 06:06] LABS: ADD SCAN DIFF NO
[2017-04-18] MEDS: hydrALAzine 20 MG INJ IV PRN ×2 (06:08→21:21)
[2017-04-18] MEDS: LEVOTHYROXINE 112 MCG TAB PO SCH (06:08)
[2017-04-18 06:25] LABS: BASOPHILS % 0.4 % (0.0-2.0); EOSINOPHILS # 0.3 10^3/ul (0.0-0.5); EOSINOPHILS % 2.8 % (0.0-7.0); HEMATOCRIT 35.6 % (37.0-47.0); LYMPHOCYTES # 1.4 10^3/ul (0.8-2.9); LYMPHOCYTES % 13.7 % (15.0-51.0); MEAN CORPUSCULAR HEMOGLOBIN 30.4 pg (29.0-33.0); MEAN CORPUSCULAR HGB CONC 33.7 g/dl (32.0-37.0); MEAN CORPUSCULAR VOLUME 90.1 fl (82.0-101.0); MEAN PLATELET VOLUME 8.6 fl (7.4-10.4); MONOCYTE # 0.9 10^3/ul (0.3-0.9); MONOCYTES % 9.2 % (0.0-11.0); NEUTROPHIL # 7.3 10^3/ul (1.6-7.5); NEUTROPHILS % 73.6 % (39.0-77.0); PLATELET COUNT 296 10^3/UL (140-415); RED BLOOD COUNT 3.95 10^6/ul (4.20-5.40); RED CELL DISTRIBUTION WIDTH 12.2 % (11.5-14.5); WHITE BLOOD COUNT 9.9 10^3/ul (4.8-10.8)
[2017-04-18 06:56] LABS: CALCIUM 8.8 mg/dl (8.4-10.2); CREATININE 0.64 mg/dl (0.44-1.00); POTASSIUM 3.7 mmol/L (3.5-5.1)
[2017-04-18] MEDS: SOD CHLORIDE 0.9% 1,000 ML IV SCH ×2 (08:02→19:28)
[2017-04-18] MEDS ORDERED: AMLODIPINE 5 MG TAB PO SCH (09:00)
--- NOTE | 2017-04-18 10:30 | RADRPT ---
Vent Rate: 78 bpm RR Interval: 0 msec LA Interval: 208 msec QRS Duration: 86 msec QT Interval: 412 msec QTC Interval: 469 msec P-R-T Harvey: 61 - 67 - 83 degrees Normal sinus rhythm Normal ECG Electronically Signed By: Ernesto Villaseñor [id number]
[2017-04-18] MEDS: DILTIAZEM (CD) 180 MG CAP PO SCH (10:41)
[2017-04-18] MEDS: LOSARTAN 50 MG TAB PO SCH (10:42)
[2017-04-18] MEDS: FAMOTIDINE 20 MG INJ IV SCH (10:42)
[2017-04-18] MEDS: SALMETEROL/FLUTICASONE 250/50 INHA INH SCH ×2 (10:42→20:10)
[2017-04-18] MEDS: ASPIRIN 81 MG TAB PO SCH (10:42)
[2017-04-18] MEDS: ENOXAPARIN 30 MG/0.3 ML SYG SC SCH (10:53)
--- NOTE | 2017-04-18 11:36 | CONS ---
Date/Time of Note Date/Time of Note DATE: 04/18/17 TIME: 11:34 Assessment/Plan Assessment/Plan Additional Assessment/Plan Nausea, vomiting, shortness of breath and chest pain Hypertension Preserved ejection fraction Mild left ventricular hypertrophy Diabetes -Serial cardiac enzymes remain negative, ECG without any significant ischemic abnormalities. Echocardiogram with mild left ventricular hypertrophy but preserved ejection fraction. Patient's blood pressure currently not well controlled. Would change Norvasc to twice daily dosing. Otherwise no further inpatient cardiac workup needed at the current time. Consultation Date/Type/Reason Admit Date/Time Apr 16, 2017 at 06:16 Initial Consult Date Type of Consultation: cv 24 HR Interval Summary Free Text/Dictation Denies shortness of breath, having occasional abdominal and chest pain especially with pushing on chest and abdomen Exam/Review of Systems Vital Signs Vitals Vital Signs Date Time Temp Pulse Resp B/P Pulse Ox O2 Delivery O2 Flow Rate FiO2 04/18/17 10:40 86 18 176/74 96 Room Air 04/18/17 08:13 98.0 Intake and Output 04/17/17 04/17/17 04/18/17 15:00 23:00 07:00 Intake Total 650 ml 1480 ml 800 ml Balance 650 ml 1480 ml 800 ml Exam No apparent distress Constitutional: alert, oriented Head: normocephalic Respiratory: clear to auscultation, normal air movement Cardiovascular: other (S1-S2 heard), regular rate and rhythm Gastrointestinal: bowel sounds, non-tender, soft Musculoskeletal: other (Discomfort with palpation of chest wall) Extremities: other (No edema) Results Result Diagram: 04/18/17 0525 04/18/17 0525 Results 24 hrs Laboratory Tests Test 04/17/17 14:45 04/17/17 17:19 04/17/17 22:04 04/18/17 05:25 Troponin I < 0.012 Bedside Glucose 115 105 White Blood Count 9.9 # Red Blood Count 3.95 L Hemoglobin 12.0 Hematocrit 35.6 L Mean Corpuscular Volume 90.1 Mean Corpuscular Hemoglobin 30.4 Mean Corpuscular Hemoglobin Concent 33.7 Red Cell Distribution Width 12.2 Platelet Count 296 Mean Platelet Volume 8.6 Neutrophils % 73.6 Lymphocytes % 13.7 L Monocytes % 9.2 Eosinophils % 2.8 Basophils % 0.4 Nucleated Red Blood Cells % 0.0 Neutrophils # 7.3 Lymphocytes # 1.4 Monocytes # 0.9 Eosinophils # 0.3 Basophils # 0.0 Nucleated Red Blood Cells # 0.0 Sodium Level 134 L Potassium Level 3.7 Chloride Level 99 Carbon Dioxide Level 27 Anion Gap 12 Blood Urea Nitrogen 9 Creatinine 0.64 Glucose Level 109 Calcium Level 8.8 Test 04/18/17 07:59 Bedside Glucose 125 Medications Medications Current Medications Sodium Chloride (NS) 1,000 ml @ 100 mls/hr Q10H IV Last administered on 08:02; Admin Dose 100 MLS/HR; Start 04/15/17 at 20:38 Ondansetron HCl (Zofran Inj) 4 mg Q6H PRN IV NAUSEA AND/OR VOMITING; Start at 21:00 Acetaminophen (Tylenol Tab) 650 mg Q6H PRN PO PAIN LEVEL 1-3 OR FEVER Last administered on 04/18/17 00:46; Admin Dose 650 MG; Start 04/15/17 at 21:00 Morphine Sulfate (morphine) 2 mg Q4H PRN IV PAIN LEVEL 7-10; Start 04/15/17 at 21:00 Famotidine (Pepcid Iv) 20 mg DAILY IV Last administered on 04/18/17 10:42; Admin Dose 20 MG; Start 04/15/17 at 21:00 Enoxaparin Sodium (Lovenox) 30 mg DAILY SC Last administered on 04/18/17 10:53 ; Admin Dose 30 MG; Start 04/16/17 at 09:00 Diagnostic Test (Pha) (Accu-Chek) Check 2 am Accucheck only if... 02 XX ; Start 04/17/17 at 02:00 Miscellaneous Information 1 ea NOTE XX ; Start 04/16/17 at 11:30 Glucose (Glutose) 15 gm Q15M PRN PO DECREASED GLUCOSE; Start 04/16/17 at 11:30 Glucose (Glutose) 22.5 gm Q15M PRN PO DECREASED GLUCOSE; Start 04/16/17 at 11: 30 Dextrose (D50w Syringe) 25 ml Q15M PRN IV DECREASED GLUCOSE; Start 04/16/17 at 11:30 Dextrose (D50w Syringe) 50 ml Q15M PRN IV DECREASED GLUCOSE; Start 04/16/17 at 11:30 Glucagon (Glucagen) 1 mg Q15M PRN IM DECREASED GLUCOSE; Start 04/16/17 at 11:30 Glucose (Glutose) 15 gm Q15M PRN BUCCAL DECREASED GLUCOSE; Start 04/16/17 at 11 :30 Salmeterol Xinafoate/ Fluticasone (Advair 250/50 Diskus) 1 inh BID INH Last administered on 04/18/17 10:42; Admin Dose 1 INH; Start 04/16/17 at 21:00 Hydralazine HCl (Apresoline) 10 mg Q6H PRN IV FOR SBP GREATER THAN 160 Last administered on 04/18/17 06:08; Admin Dose 10 MG; Start 04/16/17 at 21:30 Amlodipine Besylate (Norvasc) 5 mg DAILY PO Last administered on 04/18/17 10: 42; Admin Dose 5 MG; Start 04/18/17 at 09:00 Aspirin (Aspirin) 81 mg DAILY PO Last administered on 04/18/17 10:42; Admin Dose 81 MG; Start 04/18/17 at 09:00 Diltiazem HCl (Cardizem Cd) 180 mg DAILY PO Last administered on 04/18/17 10: 41; Admin Dose 180 MG; Start 04/18/17 at 09:00 Losartan Potassium (Cozaar) 50 mg DAILY PO Last administered on 04/18/17 10:42 ; Admin Dose 50 MG; Start 04/18/17 at 09:00 Atorvastatin Calcium (Lipitor) 10 mg DAILY@21 PO ; Start 04/18/17 at 21:00 Grant Denson DO Apr 18, 2017 11:35
[2017-04-18] MEDS: metFORMIN 500 MG TAB PO SCH ×2 (12:31→17:10)
--- NOTE | 2017-04-18 14:00 | PN ---
Date/Time of Note Date/Time of Note DATE: 04/18/17 TIME: 13:57 Assessment/Plan VTE Prophylaxis VTE Prophylaxis Intervention: SCD's Lines/Catheters IV Catheter Type (from [facility]): Peripheral IV Urinary Cath still in place: No Assessment/Plan Chief Complaint/Hosp Course Patient was hypertension, BP medications optimize optimized by cardiology, patient is status post EGD yesterday, denies any nausea vomiting. ASSESSMENT AND PLAN: 1. Intractable nausea and vomiting. Continue Zofran p.r.n. for nausea. Dr. Lopez is following the patient from gastroenterology consultation. S/p upper endoscopy today. Report is not available. 2. Chest pain, rule out acute coronary syndrome. Dr. Denson is asked to see patient in cardiology consultation. 3. Hypothyroidism. Continue Synthroid. 4. Possible adverse reaction to selective serotonin reuptake inhibitor. Hold paroxetine for now. 5. Acute hyponatremia, resolving. 6. Acute metabolic encephalopathy secondary to severe hyponatremia. 7. Chronic obstructive pulmonary disease. Continue Advair, continue breathing treatment p.r.n. for shortness of breath. 8. Hypertension. Continue patient's home antihypertensive medication. 9. Diabetes mellitus. Continue metformin and NovoLog per mild algorithm sliding scale, carbohydrate-controlled diet. Further recommendations based on clinical course. Plan of care discussed with Dr. Zaman. Problems: Exam/Review of Systems Vital Signs Vitals Vital Signs Date Time Temp Pulse Resp B/P Pulse Ox O2 Delivery O2 Flow Rate FiO2 04/18/17 12:27 80 172/95 04/18/17 10:40 18 96 Room Air 04/18/17 08:13 98.0 Intake and Output 04/17/17 04/17/17 04/18/17 15:00 23:00 07:00 Intake Total 650 ml 1480 ml 800 ml Balance 650 ml 1480 ml 800 ml Exam Constitutional: alert, oriented Head: atraumatic, normocephalic Neck: supple Respiratory: normal air movement Cardiovascular: nl pulses Gastrointestinal: non-tender, soft Extremities: normal pulses Neurological: nl mental status Results Result Diagram: 04/18/17 0525 04/18/17 0525 Results 24 hrs Laboratory Tests Test 04/17/17 14:45 04/17/17 17:19 04/17/17 22:04 04/18/17 05:25 Troponin I < 0.012 Bedside Glucose 115 105 White Blood Count 9.9 # Red Blood Count 3.95 L Hemoglobin 12.0 Hematocrit 35.6 L Mean Corpuscular Volume 90.1 Mean Corpuscular Hemoglobin 30.4 Mean Corpuscular Hemoglobin Concent 33.7 Red Cell Distribution Width 12.2 Platelet Count 296 Mean Platelet Volume 8.6 Neutrophils % 73.6 Lymphocytes % 13.7 L Monocytes % 9.2 Eosinophils % 2.8 Basophils % 0.4 Nucleated Red Blood Cells % 0.0 Neutrophils # 7.3 Lymphocytes # 1.4 Monocytes # 0.9 Eosinophils # 0.3 Basophils # 0.0 Nucleated Red Blood Cells # 0.0 Sodium Level 134 L Potassium Level 3.7 Chloride Level 99 Carbon Dioxide Level 27 Anion Gap 12 Blood Urea Nitrogen 9 Creatinine 0.64 Glucose Level 109 Calcium Level 8.8 Test 04/18/17 07:59 04/18/17 11:53 Bedside Glucose 125 130 Medications Medications Current Medications Sodium Chloride (NS) 1,000 ml @ 100 mls/hr Q10H IV Last administered on 08:02; Admin Dose 100 MLS/HR; Start 04/15/17 at 20:38 Ondansetron HCl (Zofran Inj) 4 mg Q6H PRN IV NAUSEA AND/OR VOMITING; Start at 21:00 Acetaminophen (Tylenol Tab) 650 mg Q6H PRN PO PAIN LEVEL 1-3 OR FEVER Last administered on 04/18/17 00:46; Admin Dose 650 MG; Start 04/15/17 at 21:00 Morphine Sulfate (morphine) 2 mg Q4H PRN IV PAIN LEVEL 7-10; Start 04/15/17 at 21:00 Famotidine (Pepcid Iv) 20 mg DAILY IV Last administered on 04/18/17 10:42; Admin Dose 20 MG; Start 04/15/17 at 21:00 Enoxaparin Sodium (Lovenox) 30 mg DAILY SC Last administered on 04/18/17 10:53 ; Admin Dose 30 MG; Start 04/16/17 at 09:00 Diagnostic Test (Pha) (Accu-Chek) Check 2 am Accucheck only if... 02 XX ; Start 04/17/17 at 02:00 Miscellaneous Information 1 ea NOTE XX ; Start 04/16/17 at 11:30 Glucose (Glutose) 15 gm Q15M PRN PO DECREASED GLUCOSE; Start 04/16/17 at 11:30 Glucose (Glutose) 22.5 gm Q15M PRN PO DECREASED GLUCOSE; Start 04/16/17 at 11: 30 Dextrose (D50w Syringe) 25 ml Q15M PRN IV DECREASED GLUCOSE; Start 04/16/17 at 11:30 Dextrose (D50w Syringe) 50 ml Q15M PRN IV DECREASED GLUCOSE; Start 04/16/17 at 11:30 Glucagon (Glucagen) 1 mg Q15M PRN IM DECREASED GLUCOSE; Start 04/16/17 at 11:30 Glucose (Glutose) 15 gm Q15M PRN BUCCAL DECREASED GLUCOSE; Start 04/16/17 at 11 :30 Salmeterol Xinafoate/ Fluticasone (Advair 250/50 Diskus) 1 inh BID INH Last administered on 04/18/17 10:42; Admin Dose 1 INH; Start 04/16/17 at 21:00 Hydralazine HCl (Apresoline) 10 mg Q6H PRN IV FOR SBP GREATER THAN 160 Last administered on 04/18/17 06:08; Admin Dose 10 MG; Start 04/16/17 at 21:30 Aspirin (Aspirin) 81 mg DAILY PO Last administered on 04/18/17 10:42; Admin Dose 81 MG; Start 04/18/17 at 09:00 Diltiazem HCl (Cardizem Cd) 180 mg DAILY PO Last administered on 04/18/17 10: 41; Admin Dose 180 MG; Start 04/18/17 at 09:00 Losartan Potassium (Cozaar) 50 mg DAILY PO Last administered on 04/18/17 10:42 ; Admin Dose 50 MG; Start 04/18/17 at 09:00 Atorvastatin Calcium (Lipitor) 10 mg DAILY@21 PO ; Start 04/18/17 at 21:00 Amlodipine Besylate (Norvasc) 5 mg BID PO ; Start 04/18/17 at 21:00 OVIDIO YBARRA Apr 18, 2017 13:59
[2017-04-18] MEDS: ATORVASTATIN 10 MG TAB PO SCH (20:08)
[2017-04-18] MEDS: AMLODIPINE 5 MG TAB PO SCH (20:09)
[2017-04-19 01:46] VITALS: BP 134/63; RESP 18
[2017-04-19] MEDS: ACCU-CHEK XX SCH ×5 (02:00→21:00)
[2017-04-19 06:11] LABS: ADD SCAN DIFF NO
[2017-04-19 06:15] LABS: BASOPHILS % 0.5 % (0.0-2.0); EOSINOPHILS # 0.3 10^3/ul (0.0-0.5); EOSINOPHILS % 3.7 % (0.0-7.0); HEMATOCRIT 36.8 % (37.0-47.0); HEMOGLOBIN 12.2 g/dl (12.0-16.0); LYMPHOCYTES # 1.2 10^3/ul (0.8-2.9); LYMPHOCYTES % 14.4 % (15.0-51.0); MEAN CORPUSCULAR HGB CONC 33.2 g/dl (32.0-37.0); MEAN CORPUSCULAR VOLUME 90.6 fl (82.0-101.0); MEAN PLATELET VOLUME 8.7 fl (7.4-10.4); MONOCYTE # 0.8 10^3/ul (0.3-0.9); MONOCYTES % 10.3 % (0.0-11.0); NEUTROPHIL # 5.7 10^3/ul (1.6-7.5); NEUTROPHILS % 70.6 % (39.0-77.0); PLATELET COUNT 287 10^3/UL (140-415); RED BLOOD COUNT 4.06 10^6/ul (4.20-5.40); RED CELL DISTRIBUTION WIDTH 12.4 % (11.5-14.5)
[2017-04-19] MEDS: LEVOTHYROXINE 112 MCG TAB PO SCH (06:19)
[2017-04-19 06:20] VITALS: BP 132/91; PULSE 75
[2017-04-19 06:52] LABS: CALCIUM 9.3 mg/dl (8.4-10.2); CREATININE 0.63 mg/dl (0.44-1.00); POTASSIUM 3.9 mmol/L (3.5-5.1)
[2017-04-19 08:06] VITALS: BP 145/70; RESP 18
[2017-04-19] MEDS: SALMETEROL/FLUTICASONE 250/50 INHA INH SCH ×2 (09:42→20:13)
[2017-04-19] MEDS: FAMOTIDINE 20 MG INJ IV SCH (09:42)
[2017-04-19] MEDS: DILTIAZEM (CD) 180 MG CAP PO SCH (09:43)
[2017-04-19] MEDS: ASPIRIN 81 MG TAB PO SCH (09:43)
[2017-04-19] MEDS: AMLODIPINE 5 MG TAB PO SCH ×2 (09:43→20:15)
[2017-04-19] MEDS: LOSARTAN 50 MG TAB PO SCH ×2 (09:44→20:14)
[2017-04-19] MEDS: ENOXAPARIN 30 MG/0.3 ML SYG SC SCH (09:46)
[2017-04-19] MEDS: SOD CHLORIDE 0.9% 1,000 ML IV SCH ×2 (12:37→17:01)
[2017-04-19] MEDS: metFORMIN 500 MG TAB PO SCH ×2 (12:41→18:07)
[2017-04-19 12:44] VITALS: BP 181/77; PULSE 75; RESP 20
[2017-04-19] MEDS: hydrALAzine 20 MG INJ IV PRN (13:02)
[2017-04-19 14:03] VITALS: BP 148/68; PULSE 81
--- NOTE | 2017-04-19 14:16 | CONS ---
Date/Time of Note Date/Time of Note DATE: 04/19/17 TIME: 14:15 Assessment/Plan Assessment/Plan Additional Assessment/Plan Nausea, vomiting, shortness of breath and chest pain Hypertension Preserved ejection fraction Mild left ventricular hypertrophy Diabetes -Blood pressure trend improved but still with episodes of hypertension. Would increase losartan to twice daily dosing. Consultation Date/Type/Reason Admit Date/Time Apr 18, 2017 at 16:27 Type of Consultation: cv 24 HR Interval Summary Free Text/Dictation Feeling better, denies shortness of breath Exam/Review of Systems Vital Signs Vitals Vital Signs Date Time Temp Pulse Resp B/P Pulse Ox O2 Delivery O2 Flow Rate FiO2 04/19/17 14:03 81 148/68 97 Room Air 04/19/17 12:44 97.7 20 Intake and Output 04/18/17 04/18/17 04/19/17 14:59 22:59 06:59 Intake Total 600 ml 2500 ml 1010 ml Balance 600 ml 2500 ml 1010 ml Exam No apparent distress Constitutional: alert, oriented Head: normocephalic Respiratory: other (Coarse breath sounds bilaterally, no wheezing) Cardiovascular: other (S1-S2 heard), regular rate and rhythm Gastrointestinal: bowel sounds, non-tender, soft Extremities: edema Results Result Diagram: 04/19/17 0525 04/19/17 0525 Results 24 hrs Laboratory Tests Test 04/18/17 17:07 04/18/17 20:13 04/19/17 05:25 04/19/17 07:51 Bedside Glucose 134 139 129 White Blood Count 8.0 Red Blood Count 4.06 L Hemoglobin 12.2 Hematocrit 36.8 L Mean Corpuscular Volume 90.6 Mean Corpuscular Hemoglobin 30.0 Mean Corpuscular Hemoglobin Concent 33.2 Red Cell Distribution Width 12.4 Platelet Count 287 Mean Platelet Volume 8.7 Neutrophils % 70.6 Lymphocytes % 14.4 L Monocytes % 10.3 Eosinophils % 3.7 Basophils % 0.5 Nucleated Red Blood Cells % 0.0 Neutrophils # 5.7 Lymphocytes # 1.2 Monocytes # 0.8 Eosinophils # 0.3 Basophils # 0.0 Nucleated Red Blood Cells # 0.0 Sodium Level 133 L Potassium Level 3.9 Chloride Level 97 Carbon Dioxide Level 26 Anion Gap 14 Blood Urea Nitrogen 7 Creatinine 0.63 Glucose Level 124 Calcium Level 9.3 Test 04/19/17 12:35 Bedside Glucose 168 Medications Medications Current Medications Sodium Chloride (NS) 1,000 ml @ 50 mls/hr Q20H IV Last administered on 19:28; Admin Dose 100 MLS/HR; Start 04/15/17 at 20:38 Ondansetron HCl (Zofran Inj) 4 mg Q6H PRN IV NAUSEA AND/OR VOMITING; Start at 21:00 Acetaminophen (Tylenol Tab) 650 mg Q6H PRN PO PAIN LEVEL 1-3 OR FEVER Last administered on 04/18/17 00:46; Admin Dose 650 MG; Start 04/15/17 at 21:00 Morphine Sulfate (morphine) 2 mg Q4H PRN IV PAIN LEVEL 7-10; Start 04/15/17 at 21:00 Famotidine (Pepcid Iv) 20 mg DAILY IV Last administered on 04/19/17 09:42; Admin Dose 20 MG; Start 04/15/17 at 21:00 Enoxaparin Sodium (Lovenox) 30 mg DAILY SC Last administered on 04/19/17 09:46 ; Admin Dose 30 MG; Start 04/16/17 at 09:00 Diagnostic Test (Pha) (Accu-Chek) Check 2 am Accucheck only if... 02 XX ; Start 04/17/17 at 02:00 Miscellaneous Information 1 ea NOTE XX ; Start 04/16/17 at 11:30 Glucose (Glutose) 15 gm Q15M PRN PO DECREASED GLUCOSE; Start 04/16/17 at 11:30 Glucose (Glutose) 22.5 gm Q15M PRN PO DECREASED GLUCOSE; Start 04/16/17 at 11: 30 Dextrose (D50w Syringe) 25 ml Q15M PRN IV DECREASED GLUCOSE; Start 04/16/17 at 11:30 Dextrose (D50w Syringe) 50 ml Q15M PRN IV DECREASED GLUCOSE; Start 04/16/17 at 11:30 Glucagon (Glucagen) 1 mg Q15M PRN IM DECREASED GLUCOSE; Start 04/16/17 at 11:30 Glucose (Glutose) 15 gm Q15M PRN BUCCAL DECREASED GLUCOSE; Start 04/16/17 at 11 :30 Salmeterol Xinafoate/ Fluticasone (Advair 250/50 Diskus) 1 inh BID INH Last administered on 04/19/17 09:42; Admin Dose 1 INH; Start 04/16/17 at 21:00 Hydralazine HCl (Apresoline) 10 mg Q6H PRN IV FOR SBP GREATER THAN 160 Last administered on 04/19/17 13:02; Admin Dose 10 MG; Start 04/16/17 at 21:30 Aspirin (Aspirin) 81 mg DAILY PO Last administered on 04/19/17 09:43; Admin Dose 81 MG; Start 04/18/17 at 09:00 Diltiazem HCl (Cardizem Cd) 180 mg DAILY PO Last administered on 04/19/17 09: 43; Admin Dose 180 MG; Start 04/18/17 at 09:00 Losartan Potassium (Cozaar) 50 mg DAILY PO Last administered on 04/19/17 09:44 ; Admin Dose 50 MG; Start 04/18/17 at 09:00 Atorvastatin Calcium (Lipitor) 10 mg DAILY@21 PO Last administered on 20:08; Admin Dose 10 MG; Start 04/18/17 at 21:00 Amlodipine Besylate (Norvasc) 5 mg BID PO Last administered on 04/19/17 09:43 ; Admin Dose 5 MG; Start 04/18/17 at 21:00 Grant Denson DO Apr 19, 2017 14:16
--- NOTE | 2017-04-19 15:51 | PN ---
Date/Time of Note Date/Time of Note DATE: 04/19/17 TIME: 15:48 Assessment/Plan VTE Prophylaxis VTE Prophylaxis Intervention: other Lines/Catheters IV [facility] Type (from [facility]): Peripheral IV Urinary Cath still in place: No Assessment/Plan Assessment/Plan 1. Intractable nausea and vomiting. Continue Zofran p.r.n. for nausea.None at present - Dr. Lopez is following the patient from gastroenterology consultation. S/p upper endoscopy today. Report is not available. 2. Chest pain, rule out acute coronary syndrome. Dr. Denson is asked to see patient in cardiology consultation. 3. Hypothyroidism. Continue Synthroid. 4. Possible adverse reaction to selective serotonin reuptake inhibitor. Hold paroxetine for now. 5. Acute hyponatremia, resolving. 6. Acute metabolic encephalopathy secondary to severe hyponatremia. 7. Chronic obstructive pulmonary disease. Continue Advair, continue breathing treatment p.r.n. for shortness of breath. 8. Hypertension. Continue patient's home antihypertensive medication. 9. Diabetes mellitus. Continue metformin and NovoLog per mild algorithm sliding scale, carbohydrate-controlled diet. Further recommendations based on clinical course. Plan of care discussed with Dr. Zaman. Subjective 24 Hr Interval Summary Free Text/Dictation nad, feels better, daughter at bed side,- all qS answered Exam/Review of Systems Vital Signs Vitals Vital Signs Date Time Temp Pulse Resp B/P Pulse Ox O2 Delivery O2 Flow Rate FiO2 04/19/17 14:03 81 148/68 97 Room Air 04/19/17 12:44 97.7 20 Intake and Output 04/18/17 04/18/17 04/19/17 15:00 23:00 07:00 Intake Total 600 ml 2500 ml 1010 ml Balance 600 ml 2500 ml 1010 ml Exam Constitutional: alert, well developed Eyes: EOMI Respiratory: clear to auscultation, normal air movement Cardiovascular: nl pulses, regular rate and rhythm Gastrointestinal: non-tender, soft Results Result Diagram: 04/19/17 0525 04/19/17 0525 Results 24 hrs Laboratory Tests Test 04/18/17 17:07 04/18/17 20:13 04/19/17 05:25 04/19/17 07:51 Bedside Glucose 134 139 129 White Blood Count 8.0 Red Blood Count 4.06 L Hemoglobin 12.2 Hematocrit 36.8 L Mean Corpuscular Volume 90.6 Mean Corpuscular Hemoglobin 30.0 Mean Corpuscular Hemoglobin Concent 33.2 Red Cell Distribution Width 12.4 Platelet Count 287 Mean Platelet Volume 8.7 Neutrophils % 70.6 Lymphocytes % 14.4 L Monocytes % 10.3 Eosinophils % 3.7 Basophils % 0.5 Nucleated Red Blood Cells % 0.0 Neutrophils # 5.7 Lymphocytes # 1.2 Monocytes # 0.8 Eosinophils # 0.3 Basophils # 0.0 Nucleated Red Blood Cells # 0.0 Sodium Level 133 L Potassium Level 3.9 Chloride Level 97 Carbon Dioxide Level 26 Anion Gap 14 Blood Urea Nitrogen 7 Creatinine 0.63 Glucose Level 124 Calcium Level 9.3 Test 04/19/17 12:35 Bedside Glucose 168 Medications Medications Current Medications Sodium Chloride (NS) 1,000 ml @ 50 mls/hr Q20H IV Last administered on 19:28; Admin Dose 100 MLS/HR; Start 04/15/17 at 20:38 Ondansetron HCl (Zofran Inj) 4 mg Q6H PRN IV NAUSEA AND/OR VOMITING; Start at 21:00 Acetaminophen (Tylenol Tab) 650 mg Q6H PRN PO PAIN LEVEL 1-3 OR FEVER Last administered on 04/18/17 00:46; Admin Dose 650 MG; Start 04/15/17 at 21:00 Morphine Sulfate (morphine) 2 mg Q4H PRN IV PAIN LEVEL 7-10; Start 04/15/17 at 21:00 Famotidine (Pepcid Iv) 20 mg DAILY IV Last administered on 04/19/17 09:42; Admin Dose 20 MG; Start 04/15/17 at 21:00 Enoxaparin Sodium (Lovenox) 30 mg DAILY SC Last administered on 04/19/17 09:46 ; Admin Dose 30 MG; Start 04/16/17 at 09:00 Diagnostic Test (Pha) (Accu-Chek) Check 2 am Accucheck only if... 02 XX ; Start 04/17/17 at 02:00 Miscellaneous Information 1 ea NOTE XX ; Start 04/16/17 at 11:30 Glucose (Glutose) 15 gm Q15M PRN PO DECREASED GLUCOSE; Start 04/16/17 at 11:30 Glucose (Glutose) 22.5 gm Q15M PRN PO DECREASED GLUCOSE; Start 04/16/17 at 11: 30 Dextrose (D50w Syringe) 25 ml Q15M PRN IV DECREASED GLUCOSE; Start 04/16/17 at 11:30 Dextrose (D50w Syringe) 50 ml Q15M PRN IV DECREASED GLUCOSE; Start 04/16/17 at 11:30 Glucagon (Glucagen) 1 mg Q15M PRN IM DECREASED GLUCOSE; Start 04/16/17 at 11:30 Glucose (Glutose) 15 gm Q15M PRN BUCCAL DECREASED GLUCOSE; Start 04/16/17 at 11 :30 Salmeterol Xinafoate/ Fluticasone (Advair 250/50 Diskus) 1 inh BID INH Last administered on 04/19/17 09:42; Admin Dose 1 INH; Start 04/16/17 at 21:00 Hydralazine HCl (Apresoline) 10 mg Q6H PRN IV FOR SBP GREATER THAN 160 Last administered on 04/19/17 13:02; Admin Dose 10 MG; Start 04/16/17 at 21:30 Aspirin (Aspirin) 81 mg DAILY PO Last administered on 04/19/17 09:43; Admin Dose 81 MG; Start 04/18/17 at 09:00 Diltiazem HCl (Cardizem Cd) 180 mg DAILY PO Last administered on 04/19/17 09: 43; Admin Dose 180 MG; Start 04/18/17 at 09:00 Atorvastatin Calcium (Lipitor) 10 mg DAILY@21 PO Last administered on 20:08; Admin Dose 10 MG; Start 04/18/17 at 21:00 Amlodipine Besylate (Norvasc) 5 mg BID PO Last administered on 04/19/17 09:43 ; Admin Dose 5 MG; Start 04/18/17 at 21:00 Losartan Potassium (Cozaar) 50 mg BID PO ; Start 04/19/17 at 21:00 RAVIN BARRIOS Apr 19, 2017 15:50
[2017-04-19 20:06] VITALS: BP 156/68; PULSE 80; RESP 19
[2017-04-19] MEDS: ATORVASTATIN 10 MG TAB PO SCH (20:14)
[2017-04-20] MEDS: ACCU-CHEK XX SCH ×5 (02:00→20:30)
[2017-04-20] MEDS: LEVOTHYROXINE 112 MCG TAB PO SCH (06:30)
[2017-04-20 06:32] VITALS: BP 149/71; PULSE 99
[2017-04-20 06:38] LABS: BASOPHILS % 0.5 % (0.0-2.0); EOSINOPHILS # 0.3 10^3/ul (0.0-0.5); EOSINOPHILS % 3.7 % (0.0-7.0); HEMATOCRIT 36.8 % (37.0-47.0); HEMOGLOBIN 12.3 g/dl (12.0-16.0); LYMPHOCYTES # 1.2 10^3/ul (0.8-2.9); LYMPHOCYTES % 15.1 % (15.0-51.0); MEAN CORPUSCULAR HEMOGLOBIN 30.3 pg (29.0-33.0); MEAN CORPUSCULAR HGB CONC 33.4 g/dl (32.0-37.0); MEAN CORPUSCULAR VOLUME 90.6 fl (82.0-101.0); MEAN PLATELET VOLUME 8.8 fl (7.4-10.4); MONOCYTE # 0.8 10^3/ul (0.3-0.9); MONOCYTES % 10.1 % (0.0-11.0); NEUTROPHIL # 5.5 10^3/ul (1.6-7.5); NEUTROPHILS % 70.2 % (39.0-77.0); PLATELET COUNT 281 10^3/UL (140-415); RED BLOOD COUNT 4.06 10^6/ul (4.20-5.40); RED CELL DISTRIBUTION WIDTH 12.6 % (11.5-14.5); WHITE BLOOD COUNT 7.8 10^3/ul (4.8-10.8)
[2017-04-20 07:05] LABS: CALCIUM 9.2 mg/dl (8.4-10.2); CREATININE 0.69 mg/dl (0.44-1.00); POTASSIUM 4.3 mmol/L (3.5-5.1)
[2017-04-20 07:27] LABS: ADD SCAN DIFF NO
[2017-04-20 07:33] VITALS: BP 146/65; RESP 18
[2017-04-20] MEDS: DILTIAZEM (CD) 180 MG CAP PO SCH (08:09)
[2017-04-20] MEDS: LOSARTAN 50 MG TAB PO SCH ×2 (08:10→20:24)
[2017-04-20] MEDS: AMLODIPINE 5 MG TAB PO SCH ×2 (08:10→20:24)
[2017-04-20] MEDS: ASPIRIN 81 MG TAB PO SCH (08:10)
[2017-04-20] MEDS: FAMOTIDINE 20 MG INJ IV SCH (08:12)
[2017-04-20] MEDS: SALMETEROL/FLUTICASONE 250/50 INHA INH SCH ×2 (08:12→20:25)
[2017-04-20] MEDS: ENOXAPARIN 30 MG/0.3 ML SYG SC SCH (08:28)
--- NOTE | 2017-04-20 11:45 | CONS ---
Date/Time of Note Date/Time of Note DATE: 04/20/17 TIME: 11:44 Assessment/Plan Assessment/Plan Additional Assessment/Plan Nausea, vomiting, shortness of breath and chest pain Hypertension Preserved ejection fraction Mild left ventricular hypertrophy Diabetes -Blood pressure trend improved on current medication regimen. Undergoing evaluation for acute rehab. No new cardiac orders at the current time. DC planning Consultation Date/Type/Reason Admit Date/Time Apr 18, 2017 at 16:27 Type of Consultation: cv 24 HR Interval Summary Free Text/Dictation Denies chest pain or shortness of breath, feeling better Exam/Review of Systems Vital Signs Vitals Vital Signs Date Time Temp Pulse Resp B/P Pulse Ox O2 Delivery O2 Flow Rate FiO2 04/20/17 07:33 98.1 74 18 146/65 93 04/19/17 20:06 Room Air Intake and Output 04/19/17 04/19/17 04/20/17 15:00 23:00 07:00 Intake Total 1930 ml 600 ml Balance 1930 ml 600 ml Exam No apparent distress Constitutional: alert, oriented Head: normocephalic Respiratory: other (Coarse breath sounds bilaterally, no wheezing) Cardiovascular: other (S1-S2 heard), regular rate and rhythm Gastrointestinal: bowel sounds, non-tender, soft Extremities: other (No edema) Results Result Diagram: 04/20/17 0505 04/20/17 0506 Results 24 hrs Laboratory Tests Test 04/19/17 12:35 04/19/17 16:57 04/19/17 20:55 04/20/17 05:05 Bedside Glucose 168 104 136 White Blood Count 7.8 Red Blood Count 4.06 L Hemoglobin 12.3 Hematocrit 36.8 L Mean Corpuscular Volume 90.6 Mean Corpuscular Hemoglobin 30.3 Mean Corpuscular Hemoglobin Concent 33.4 Red Cell Distribution Width 12.6 Platelet Count 281 Mean Platelet Volume 8.8 Neutrophils % 70.2 Lymphocytes % 15.1 Monocytes % 10.1 Eosinophils % 3.7 Basophils % 0.5 Nucleated Red Blood Cells % 0.0 Neutrophils # 5.5 Lymphocytes # 1.2 Monocytes # 0.8 Eosinophils # 0.3 Basophils # 0.0 Nucleated Red Blood Cells # 0.0 Test 04/20/17 05:06 04/20/17 07:56 Sodium Level 131 L Potassium Level 4.3 Chloride Level 95 L Carbon Dioxide Level 29 Anion Gap 11 Blood Urea Nitrogen 7 Creatinine 0.69 Glucose Level 118 Calcium Level 9.2 Bedside Glucose 143 Medications Medications Current Medications Sodium Chloride (NS) 1,000 ml @ 50 mls/hr Q20H IV Last administered on 17:01; Admin Dose 50 MLS/HR; Start 04/15/17 at 20:38 Ondansetron HCl (Zofran Inj) 4 mg Q6H PRN IV NAUSEA AND/OR VOMITING; Start at 21:00 Acetaminophen (Tylenol Tab) 650 mg Q6H PRN PO PAIN LEVEL 1-3 OR FEVER Last administered on 04/18/17 00:46; Admin Dose 650 MG; Start 04/15/17 at 21:00 Morphine Sulfate (morphine) 2 mg Q4H PRN IV PAIN LEVEL 7-10; Start 04/15/17 at 21:00 Famotidine (Pepcid Iv) 20 mg DAILY IV Last administered on 04/20/17 08:12; Admin Dose 20 MG; Start 04/15/17 at 21:00 Enoxaparin Sodium (Lovenox) 30 mg DAILY SC Last administered on 04/20/17 08:28 ; Admin Dose 30 MG; Start 04/16/17 at 09:00 Diagnostic Test (Pha) (Accu-Chek) Check 2 am Accucheck only if... 02 XX ; Start 04/17/17 at 02:00 Miscellaneous Information 1 ea NOTE XX ; Start 04/16/17 at 11:30 Glucose (Glutose) 15 gm Q15M PRN PO DECREASED GLUCOSE; Start 04/16/17 at 11:30 Glucose (Glutose) 22.5 gm Q15M PRN PO DECREASED GLUCOSE; Start 04/16/17 at 11: 30 Dextrose (D50w Syringe) 25 ml Q15M PRN IV DECREASED GLUCOSE; Start 04/16/17 at 11:30 Dextrose (D50w Syringe) 50 ml Q15M PRN IV DECREASED GLUCOSE; Start 04/16/17 at 11:30 Glucagon (Glucagen) 1 mg Q15M PRN IM DECREASED GLUCOSE; Start 04/16/17 at 11:30 Glucose (Glutose) 15 gm Q15M PRN BUCCAL DECREASED GLUCOSE; Start 04/16/17 at 11 :30 Salmeterol Xinafoate/ Fluticasone (Advair 250/50 Diskus) 1 inh BID INH Last administered on 04/20/17 08:12; Admin Dose 1 INH; Start 04/16/17 at 21:00 Hydralazine HCl (Apresoline) 10 mg Q6H PRN IV FOR SBP GREATER THAN 160 Last administered on 04/19/17 13:02; Admin Dose 10 MG; Start 04/16/17 at 21:30 Aspirin (Aspirin) 81 mg DAILY PO Last administered on 04/20/17 08:10; Admin Dose 81 MG; Start 04/18/17 at 09:00 Diltiazem HCl (Cardizem Cd) 180 mg DAILY PO Last administered on 04/20/17 08: 09; Admin Dose 180 MG; Start 04/18/17 at 09:00 Atorvastatin Calcium (Lipitor) 10 mg DAILY@21 PO Last administered on 20:14; Admin Dose 10 MG; Start 04/18/17 at 21:00 Amlodipine Besylate (Norvasc) 5 mg BID PO Last administered on 04/20/17 08:10 ; Admin Dose 5 MG; Start 04/18/17 at 21:00 Losartan Potassium (Cozaar) 50 mg BID PO Last administered on 04/20/17 08:10; Admin Dose 50 MG; Start 04/19/17 at 21:00 Grant Denson DO Apr 20, 2017 11:45
[2017-04-20] MEDS: SOD CHLORIDE 0.9% 1,000 ML IV SCH (12:27)
[2017-04-20] MEDS: metFORMIN 500 MG TAB PO SCH ×2 (12:27→17:27)
--- NOTE | 2017-04-20 14:31 | PN ---
Date/Time of Note Date/Time of Note DATE: 04/20/17 TIME: 14:28 Assessment/Plan VTE Prophylaxis VTE Prophylaxis Intervention: SCD's Lines/Catheters [facility] Peripheral IV Urinary Cath still in place: No Assessment/Plan Chief Complaint/Hosp Course Patient denies chest pain blood pressure is better controlled, evaluation for acute rehab pending ASSESSMENT AND PLAN: 1. Intractable nausea and vomiting. Continue Zofran p.r.n. for nausea. Dr. Lopez is following the patient from gastroenterology consultation. S/p upper endoscopy with notion of gastritis. Continue Pepcid. 2. Chest pain, rule out acute coronary syndrome. Dr. Denson is asked to see patient in cardiology consultation. 3. Hypothyroidism. Continue Synthroid. 4. Possible adverse reaction to selective serotonin reuptake inhibitor. Hold paroxetine for now. 5. Acute hyponatremia, resolving. 6. Acute metabolic encephalopathy secondary to severe hyponatremia. 7. Chronic obstructive pulmonary disease. Continue Advair, continue breathing treatment p.r.n. for shortness of breath. 8. Hypertension. Continue patient's home antihypertensive medication. 9. Diabetes mellitus. Continue metformin and NovoLog per mild algorithm sliding scale, carbohydrate-controlled diet. Further recommendations based on clinical course. Plan of care discussed with Dr. Zaman. Problems: Exam/Review of Systems Vital Signs Vitals Vital Signs Date Time Temp Pulse Resp B/P Pulse Ox O2 Delivery O2 Flow Rate FiO2 04/20/17 07:33 98.1 74 18 146/65 93 04/19/17 20:06 Room Air Intake and Output 04/19/17 04/19/17 04/20/17 15:00 23:00 07:00 Intake Total 1930 ml 600 ml Balance 1930 ml 600 ml Exam Constitutional: alert, oriented Head: atraumatic, normocephalic Neck: supple Respiratory: normal air movement Cardiovascular: nl pulses Gastrointestinal: non-tender, soft Extremities: normal pulses Neurological: nl mental status Results Result Diagram: 04/20/17 0505 04/20/17 0506 Results 24 hrs Laboratory Tests Test 04/19/17 16:57 04/19/17 20:55 04/20/17 05:05 04/20/17 05:06 Bedside Glucose 104 136 White Blood Count 7.8 Red Blood Count 4.06 L Hemoglobin 12.3 Hematocrit 36.8 L Mean Corpuscular Volume 90.6 Mean Corpuscular Hemoglobin 30.3 Mean Corpuscular Hemoglobin Concent 33.4 Red Cell Distribution Width 12.6 Platelet Count 281 Mean Platelet Volume 8.8 Neutrophils % 70.2 Lymphocytes % 15.1 Monocytes % 10.1 Eosinophils % 3.7 Basophils % 0.5 Nucleated Red Blood Cells % 0.0 Neutrophils # 5.5 Lymphocytes # 1.2 Monocytes # 0.8 Eosinophils # 0.3 Basophils # 0.0 Nucleated Red Blood Cells # 0.0 Sodium Level 131 L Potassium Level 4.3 Chloride Level 95 L Carbon Dioxide Level 29 Anion Gap 11 Blood Urea Nitrogen 7 Creatinine 0.69 Glucose Level 118 Calcium Level 9.2 Test 04/20/17 07:56 04/20/17 12:05 Bedside Glucose 143 112 Medications Medications Current Medications Sodium Chloride (NS) 1,000 ml @ 50 mls/hr Q20H IV Last administered on 12:27; Admin Dose 50 MLS/HR; Start 04/15/17 at 20:38 Ondansetron HCl (Zofran Inj) 4 mg Q6H PRN IV NAUSEA AND/OR VOMITING; Start at 21:00 Acetaminophen (Tylenol Tab) 650 mg Q6H PRN PO PAIN LEVEL 1-3 OR FEVER Last administered on 04/18/17 00:46; Admin Dose 650 MG; Start 04/15/17 at 21:00 Morphine Sulfate (morphine) 2 mg Q4H PRN IV PAIN LEVEL 7-10; Start 04/15/17 at 21:00 Famotidine (Pepcid Iv) 20 mg DAILY IV Last administered on 04/20/17 08:12; Admin Dose 20 MG; Start 04/15/17 at 21:00 Enoxaparin Sodium (Lovenox) 30 mg DAILY SC Last administered on 04/20/17 08:28 ; Admin Dose 30 MG; Start 04/16/17 at 09:00 Diagnostic Test (Pha) (Accu-Chek) Check 2 am Accucheck only if... 02 XX ; Start 04/17/17 at 02:00 Miscellaneous Information 1 ea NOTE XX ; Start 04/16/17 at 11:30 Glucose (Glutose) 15 gm Q15M PRN PO DECREASED GLUCOSE; Start 04/16/17 at 11:30 Glucose (Glutose) 22.5 gm Q15M PRN PO DECREASED GLUCOSE; Start 04/16/17 at 11: 30 Dextrose (D50w Syringe) 25 ml Q15M PRN IV DECREASED GLUCOSE; Start 04/16/17 at 11:30 Dextrose (D50w Syringe) 50 ml Q15M PRN IV DECREASED GLUCOSE; Start 04/16/17 at 11:30 Glucagon (Glucagen) 1 mg Q15M PRN IM DECREASED GLUCOSE; Start 04/16/17 at 11:30 Glucose (Glutose) 15 gm Q15M PRN BUCCAL DECREASED GLUCOSE; Start 04/16/17 at 11 :30 Salmeterol Xinafoate/ Fluticasone (Advair 250/50 Diskus) 1 inh BID INH Last administered on 04/20/17 08:12; Admin Dose 1 INH; Start 04/16/17 at 21:00 Hydralazine HCl (Apresoline) 10 mg Q6H PRN IV FOR SBP GREATER THAN 160 Last administered on 04/19/17 13:02; Admin Dose 10 MG; Start 04/16/17 at 21:30 Aspirin (Aspirin) 81 mg DAILY PO Last administered on 04/20/17 08:10; Admin Dose 81 MG; Start 04/18/17 at 09:00 Diltiazem HCl (Cardizem Cd) 180 mg DAILY PO Last administered on 04/20/17 08: 09; Admin Dose 180 MG; Start 04/18/17 at 09:00 Atorvastatin Calcium (Lipitor) 10 mg DAILY@21 PO Last administered on 20:14; Admin Dose 10 MG; Start 04/18/17 at 21:00 Amlodipine Besylate (Norvasc) 5 mg BID PO Last administered on 04/20/17 08:10 ; Admin Dose 5 MG; Start 04/18/17 at 21:00 Losartan Potassium (Cozaar) 50 mg BID PO Last administered on 04/20/17 08:10; Admin Dose 50 MG; Start 04/19/17 at 21:00 OVIDIO YBARRA Apr 20, 2017 14:30
[2017-04-20 20:01] VITALS: BP 134/63; RESP 18
[2017-04-20] MEDS: ATORVASTATIN 10 MG TAB PO SCH (20:24)
[2017-04-21 06:07] LABS: BASOPHIL # 0.1 10^3/ul (0.0-0.1); BASOPHILS % 0.6 % (0.0-2.0); EOSINOPHILS # 0.5 10^3/ul (0.0-0.5); EOSINOPHILS % 5.5 % (0.0-7.0); HEMATOCRIT 35.4 % (37.0-47.0); LYMPHOCYTES # 1.6 10^3/ul (0.8-2.9); LYMPHOCYTES % 19.4 % (15.0-51.0); MEAN CORPUSCULAR HEMOGLOBIN 30.9 pg (29.0-33.0); MEAN CORPUSCULAR HGB CONC 33.9 g/dl (32.0-37.0); MEAN CORPUSCULAR VOLUME 91.2 fl (82.0-101.0); MEAN PLATELET VOLUME 8.6 fl (7.4-10.4); MONOCYTE # 0.9 10^3/ul (0.3-0.9); NEUTROPHIL # 5.2 10^3/ul (1.6-7.5); NEUTROPHILS % 63.3 % (39.0-77.0); PLATELET COUNT 268 10^3/UL (140-415); RED BLOOD COUNT 3.88 10^6/ul (4.20-5.40); RED CELL DISTRIBUTION WIDTH 12.3 % (11.5-14.5); WHITE BLOOD COUNT 8.2 10^3/ul (4.8-10.8)
[2017-04-21 06:31] LABS: CALCIUM 9.1 mg/dl (8.4-10.2); CREATININE 0.74 mg/dl (0.44-1.00); POTASSIUM 4.3 mmol/L (3.5-5.1)
[2017-04-21] MEDS: ACCU-CHEK XX SCH ×4 (08:00→20:42)
[2017-04-21 08:03] VITALS: BP 131/67; PULSE 76; RESP 18
[2017-04-21] MEDS: ASPIRIN 81 MG TAB PO SCH (08:24)
[2017-04-21] MEDS: FAMOTIDINE 20 MG TAB PO SCH (08:24)
[2017-04-21] MEDS: LEVOTHYROXINE 112 MCG TAB PO SCH (08:24)
[2017-04-21] MEDS: LOSARTAN 50 MG TAB PO SCH ×2 (08:25→20:42)
[2017-04-21] MEDS: AMLODIPINE 5 MG TAB PO SCH ×2 (08:25→20:42)
[2017-04-21] MEDS: DILTIAZEM (CD) 180 MG CAP PO SCH (08:26)
[2017-04-21] MEDS: SALMETEROL/FLUTICASONE 250/50 INHA INH SCH ×2 (08:26→20:42)
[2017-04-21] MEDS: ENOXAPARIN 30 MG/0.3 ML SYG SC SCH (08:34)
[2017-04-21] MEDS: SOD CHLORIDE 0.9% 1,000 ML IV SCH (10:50)
[2017-04-21] MEDS: metFORMIN 500 MG TAB PO SCH ×2 (11:58→18:00)
--- NOTE | 2017-04-21 13:42 | PN ---
Date/Time of Note Date/Time of Note DATE: 04/21/17 TIME: 13:38 Assessment/Plan VTE Prophylaxis VTE Prophylaxis Intervention: other Lines/Catheters IV Catheter Type (from [facility]): Peripheral IV Urinary Cath still in place: No Assessment/Plan Assessment/Plan 1. Hyponatremia- persistent - will get nephrology consult- Dr Layne Parr notified 1. Intractable nausea and vomiting. Continue Zofran p.r.n. for nausea. Dr. Lopez is following the patient from gastroenterology consultation. S/ p upper endoscopy with notion of gastritis. Continue Pepcid. 2. Chest pain, rule out acute coronary syndrome. Dr. Denson is asked to see patient in cardiology consultation. 3. Hypothyroidism. Continue Synthroid. 4. Possible adverse reaction to selective serotonin reuptake inhibitor. Hold paroxetine for now. 5. Acute hyponatremia, resolving. 6. Acute metabolic encephalopathy secondary to severe hyponatremia. 7. Chronic obstructive pulmonary disease. Continue Advair, continue breathing treatment p.r.n. for shortness of breath. 8. Hypertension. Continue patient's home antihypertensive medication. 9. Diabetes mellitus. Continue metformin and NovoLog per mild algorithm sliding scale, carbohydrate-controlled diet. Further recommendations based on clinical course. Plan of care discussed with Dr. Zaman. Subjective 24 Hr Interval Summary Free Text/Dictation Hyponatremia- will get nephro consult denies any complaints, daughter at bed side- all QS answered, dw staff. Respiratory: no complaints Cardiovascular: no complaints Gastrointestinal: no complaints Exam/Review of Systems Vital Signs Vitals Vital Signs Date Time Temp Pulse Resp B/P Pulse Ox O2 Delivery O2 Flow Rate FiO2 04/21/17 08:03 97.9 76 18 131/67 95 Room Air Intake and Output 04/20/17 04/20/17 04/21/17 15:00 23:00 07:00 Intake Total 1710 ml 450 ml 1030 ml Balance 1710 ml 450 ml 1030 ml Exam Constitutional: alert, oriented, well developed Respiratory: clear to auscultation, normal air movement Cardiovascular: nl pulses, regular rate and rhythm Gastrointestinal: soft Musculoskeletal: nl extremities to inspection Neurological: nl mental status, nl speech Results Result Diagram: 04/21/17 0510 04/21/17 0510 Results 24 hrs Laboratory Tests Test 04/20/17 17:22 04/20/17 20:26 04/21/17 05:10 04/21/17 08:02 Bedside Glucose 127 213 115 White Blood Count 8.2 Red Blood Count 3.88 L Hemoglobin 12.0 Hematocrit 35.4 L Mean Corpuscular Volume 91.2 Mean Corpuscular Hemoglobin 30.9 Mean Corpuscular Hemoglobin Concent 33.9 Red Cell Distribution Width 12.3 Platelet Count 268 Mean Platelet Volume 8.6 Neutrophils % 63.3 Lymphocytes % 19.4 Monocytes % 11.0 Eosinophils % 5.5 Basophils % 0.6 Nucleated Red Blood Cells % 0.0 Neutrophils # 5.2 Lymphocytes # 1.6 Monocytes # 0.9 Eosinophils # 0.5 Basophils # 0.1 Nucleated Red Blood Cells # 0.0 Sodium Level 130 L Potassium Level 4.3 Chloride Level 95 L Carbon Dioxide Level 29 Anion Gap 10 Blood Urea Nitrogen 11 Creatinine 0.74 Glucose Level 120 Calcium Level 9.1 Test 04/21/17 11:57 Bedside Glucose 137 Medications Medications Current Medications Sodium Chloride (NS) 1,000 ml @ 50 mls/hr Q20H IV Last administered on 10:50; Admin Dose 50 MLS/HR; Start 04/15/17 at 20:38 Ondansetron HCl (Zofran Inj) 4 mg Q6H PRN IV NAUSEA AND/OR VOMITING; Start at 21:00 Acetaminophen (Tylenol Tab) 650 mg Q6H PRN PO PAIN LEVEL 1-3 OR FEVER Last administered on 04/18/17 00:46; Admin Dose 650 MG; Start 04/15/17 at 21:00 Morphine Sulfate (morphine) 2 mg Q4H PRN IV PAIN LEVEL 7-10; Start 04/15/17 at 21:00 Enoxaparin Sodium (Lovenox) 30 mg DAILY SC Last administered on 04/21/17 08:34 ; Admin Dose 30 MG; Start 04/16/17 at 09:00 Diagnostic Test (Pha) (Accu-Chek) Check 2 am Accucheck only if... 02 XX ; Start 04/17/17 at 02:00 Miscellaneous Information 1 ea NOTE XX ; Start 04/16/17 at 11:30 Glucose (Glutose) 15 gm Q15M PRN PO DECREASED GLUCOSE; Start 04/16/17 at 11:30 Glucose (Glutose) 22.5 gm Q15M PRN PO DECREASED GLUCOSE; Start 04/16/17 at 11: 30 Dextrose (D50w Syringe) 25 ml Q15M PRN IV DECREASED GLUCOSE; Start 04/16/17 at 11:30 Dextrose (D50w Syringe) 50 ml Q15M PRN IV DECREASED GLUCOSE; Start 04/16/17 at 11:30 Glucagon (Glucagen) 1 mg Q15M PRN IM DECREASED GLUCOSE; Start 04/16/17 at 11:30 Glucose (Glutose) 15 gm Q15M PRN BUCCAL DECREASED GLUCOSE; Start 04/16/17 at 11 :30 Salmeterol Xinafoate/ Fluticasone (Advair 250/50 Diskus) 1 inh BID INH Last administered on 04/21/17 08:26; Admin Dose 1 INH; Start 04/16/17 at 21:00 Hydralazine HCl (Apresoline) 10 mg Q6H PRN IV FOR SBP GREATER THAN 160 Last administered on 04/19/17 13:02; Admin Dose 10 MG; Start 04/16/17 at 21:30 Aspirin (Aspirin) 81 mg DAILY PO Last administered on 04/21/17 08:24; Admin Dose 81 MG; Start 04/18/17 at 09:00 Diltiazem HCl (Cardizem Cd) 180 mg DAILY PO Last administered on 04/21/17 08:26 ; Admin Dose 180 MG; Start 04/18/17 at 09:00 Atorvastatin Calcium (Lipitor) 10 mg DAILY@21 PO Last administered on 20:24; Admin Dose 10 MG; Start 04/18/17 at 21:00 Amlodipine Besylate (Norvasc) 5 mg BID PO Last administered on 04/21/17 08:25; Admin Dose 5 MG; Start 04/18/17 at 21:00 Losartan Potassium (Cozaar) 50 mg BID PO Last administered on 04/21/17 08:25; Admin Dose 50 MG; Start 04/19/17 at 21:00 Famotidine (Pepcid) 20 mg DAILY PO Last administered on 04/21/17 08:24; Admin Dose 20 MG; Start 04/21/17 at 09:00 RAVIN BARRIOS Apr 21, 2017 13:42
--- NOTE | 2017-04-21 13:46 | CONS ---
Date/Time of Note Date/Time of Note DATE: 04/21/17 TIME: 13:46 Assessment/Plan Assessment/Plan Additional Assessment/Plan 1. Severe Hyponatremia with Na 113 on admission - pt has initially Hypovolemic hyponatremia with Na 113 on admission which corrected to 134 then again dropping down despite being on IVF NS at 50 cc.hr- raises the suspicious of possible underlying SIADH 2. s/p Acute encephalopathy 2/2 severe hyponatremia 3. HTN 4. HL 5. Diabetes melitus Plan: continue Current IVF NS at 50 cc/hr, if Na continues to drop with AM labs then we will stop IVF NS EF normal on ECHO Will order Urine studies including Urine sodium, Urine osmolarity,serum osmolarity, TSH, free T4, Cortisol with AM labs Thanks for consultation,we will continue to follow up Consultation Date/Type/Reason Admit Date/Time Apr 18, 2017 at 16:27 Date of Consultation: Apr 21, 2017 Type of Consultation: NEPHROLOGY Reason for Consultation Hyponatremia, resistant, Not improving Referring Provider: ROSIE HERNANDEZ MD Hx of Present Illness 76-year-old female with past medical history of COPD, hypertension, diabetes, depression who presents with nausea and vomiting worsening over the past 2-3 days prior to admission. Symptoms occur with any eating. She also developed symptoms of shortness of breath at times when she feels nauseous as well as chest pain. She does complain of intermittent chest pain. It occurs approximately once per month. At times at rest and at times with activity. Chest pain at times is burning like occasionally heavy or occasionally sharp. Symptoms are not consistent and do not occur with activity every time. She does have a known history of COPD and she is under the care of a thread grinder. She is currently feeling better. She underwent EGD pt presented with Na 113 on admissio, which improved to 134 then again dropped down to 130 Constitutional: no complaints Eyes: no complaints Respiratory: no complaints Cardiovascular: no complaints Gastrointestinal: decreased appetite, nausea Genitourinary: no complaints Musculoskeletal: no complaints Skin: no complaints Neurologic: no complaints Endocrine: no complaints Lymphatic: no complaints Psychological: no complaints Immunologic: no complaints Past Medical History Medical History: diabetes, high cholesterol, hypertension Past Surgical History Past Surgical Hx: cholecystectomy Social History Alcohol Use: none Smoking Status: Never smoker Exam/Review of Systems Vital Signs Vitals Vital Signs Date Time Temp Pulse Resp B/P Pulse Ox O2 Delivery O2 Flow Rate FiO2 04/21/17 08:03 97.9 76 18 131/67 95 Room Air Intake and Output 04/20/17 04/20/17 04/21/17 15:00 23:00 07:00 Intake Total 1710 ml 450 ml 1030 ml Balance 1710 ml 450 ml 1030 ml Exam Constitutional: alert, oriented Psych: no complaints Head: normocephalic ENMT: nl external ears & nose Neck: supple Respiratory: clear to auscultation, normal air movement Cardiovascular: regular rate and rhythm Gastrointestinal: bowel sounds, non-tender, soft Musculoskeletal: nl extremities to inspection Extremities: normal pulses Neurological: PROJECT MANAGEMENT CONSULTANT II-XII intact Lymph: nl lymph nodes Results Result Diagram: 04/21/17 0510 04/21/17 0510 Results 24 hrs Laboratory Tests Test 04/20/17 17:22 04/20/17 20:26 04/21/17 05:10 04/21/17 08:02 Bedside Glucose 127 213 115 White Blood Count 8.2 Red Blood Count 3.88 L Hemoglobin 12.0 Hematocrit 35.4 L Mean Corpuscular Volume 91.2 Mean Corpuscular Hemoglobin 30.9 Mean Corpuscular Hemoglobin Concent 33.9 Red Cell Distribution Width 12.3 Platelet Count 268 Mean Platelet Volume 8.6 Neutrophils % 63.3 Lymphocytes % 19.4 Monocytes % 11.0 Eosinophils % 5.5 Basophils % 0.6 Nucleated Red Blood Cells % 0.0 Neutrophils # 5.2 Lymphocytes # 1.6 Monocytes # 0.9 Eosinophils # 0.5 Basophils # 0.1 Nucleated Red Blood Cells # 0.0 Sodium Level 130 L Potassium Level 4.3 Chloride Level 95 L Carbon Dioxide Level 29 Anion Gap 10 Blood Urea Nitrogen 11 Creatinine 0.74 Glucose Level 120 Calcium Level 9.1 Test 04/21/17 11:57 Bedside Glucose 137 Medications Medications Current Medications Sodium Chloride (NS) 1,000 ml @ 50 mls/hr Q20H IV Last administered on t 10:50; Admin Dose 50 MLS/HR; Start 04/15/17 at 20:38 Ondansetron HCl (Zofran Inj) 4 mg Q6H PRN IV NAUSEA AND/OR VOMITING; Start at 21:00 Acetaminophen (Tylenol Tab) 650 mg Q6H PRN PO PAIN LEVEL 1-3 OR FEVER Last administered on 04/18/17 00:46; Admin Dose 650 MG; Start 04/15/17 at 21:00 Morphine Sulfate (morphine) 2 mg Q4H PRN IV PAIN LEVEL 7-10; Start 04/15/17 at 21:00 Enoxaparin Sodium (Lovenox) 30 mg DAILY SC Last administered on 04/21/17 08:34 ; Admin Dose 30 MG; Start 04/16/17 at 09:00 Diagnostic Test (Pha) (Accu-Chek) Check 2 am Accucheck only if... 02 XX ; Start 04/17/17 at 02:00 Miscellaneous Information 1 ea NOTE XX ; Start 04/16/17 at 11:30 Glucose (Glutose) 15 gm Q15M PRN PO DECREASED GLUCOSE; Start 04/16/17 at 11:30 Glucose (Glutose) 22.5 gm Q15M PRN PO DECREASED GLUCOSE; Start 04/16/17 at 11: 30 Dextrose (D50w Syringe) 25 ml Q15M PRN IV DECREASED GLUCOSE; Start 04/16/17 at 11:30 Dextrose (D50w Syringe) 50 ml Q15M PRN IV DECREASED GLUCOSE; Start 04/16/17 at 11:30 Glucagon (Glucagen) 1 mg Q15M PRN IM DECREASED GLUCOSE; Start 04/16/17 at 11:30 Glucose (Glutose) 15 gm Q15M PRN BUCCAL DECREASED GLUCOSE; Start 04/16/17 at 11 :30 Salmeterol Xinafoate/ Fluticasone (Advair 250/50 Diskus) 1 inh BID INH Last administered on 04/21/17 08:26; Admin Dose 1 INH; Start 04/16/17 at 21:00 Hydralazine HCl (Apresoline) 10 mg Q6H PRN IV FOR SBP GREATER THAN 160 Last administered on 04/19/17 13:02; Admin Dose 10 MG; Start 04/16/17 at 21:30 Aspirin (Aspirin) 81 mg DAILY PO Last administered on 04/21/17 08:24; Admin Dose 81 MG; Start 04/18/17 at 09:00 Diltiazem HCl (Cardizem Cd) 180 mg DAILY PO Last administered on 04/21/17 08:26 ; Admin Dose 180 MG; Start 04/18/17 at 09:00 Atorvastatin Calcium (Lipitor) 10 mg DAILY@21 PO Last administered on 20:24; Admin Dose 10 MG; Start 04/18/17 at 21:00 Amlodipine Besylate (Norvasc) 5 mg BID PO Last administered on 04/21/17 08:25; Admin Dose 5 MG; Start 04/18/17 at 21:00 Losartan Potassium (Cozaar) 50 mg BID PO Last administered on 04/21/17 08:25; Admin Dose 50 MG; Start 04/19/17 at 21:00 Famotidine (Pepcid) 20 mg DAILY PO Last administered on 04/21/17 08:24; Admin Dose 20 MG; Start 04/21/17 at 09:00 JACINDA ELLISON MD Apr 21, 2017 13:46
--- NOTE | 2017-04-21 17:59 | PN ---
Date/Time of Note Date/Time of Note DATE: 04/21/17 TIME: 17:56 Assessment/Plan VTE Prophylaxis VTE Prophylaxis Intervention: LMWH Lines/Catheters IV Catheter Type (from Nrs): Peripheral IV Urinary Cath still in place: No Assessment/Plan Chief Complaint/Hosp Course Nausea, vomiting, shortness of breath: improved chest pain: atypical. has resolved now. Hypertension: under control now with Preserved ejection fraction Mild left ventricular hypertrophy Diabetes cont current cardiac care DM control Problems: Subjective 24 Hr Interval Summary Free Text/Dictation pt denies any chest pain or pressure to me. she c/o mild neck pain on the back no palpitations. Exam/Review of Systems Vital Signs Vitals Vital Signs Date Time Temp Pulse Resp B/P Pulse Ox O2 Delivery O2 Flow Rate FiO2 04/21/17 08:03 97.9 76 18 131/67 95 Room Air Intake and Output 04/20/17 04/20/17 04/21/17 15:00 23:00 07:00 Intake Total 1710 ml 450 ml 1030 ml Balance 1710 ml 450 ml 1030 ml Exam GEN: no acute distress HEENT: NC/AT, PER NECK NO JVD. NO stridor CV: RRR. systolic murmur pulm: no wheezes anteriorly GI: soft, NT ND. no rebound EXT: no significant MEMO Neuro: awake and alert. nonfocal psych calm and pleasant Results Result Diagram: 04/21/17 0510 04/21/17 0510 Results 24 hrs Laboratory Tests Test 04/20/17 20:26 04/21/17 05:10 04/21/17 08:02 04/21/17 11:57 Bedside Glucose 213 115 137 White Blood Count 8.2 Red Blood Count 3.88 L Hemoglobin 12.0 Hematocrit 35.4 L Mean Corpuscular Volume 91.2 Mean Corpuscular Hemoglobin 30.9 Mean Corpuscular Hemoglobin Concent 33.9 Red Cell Distribution Width 12.3 Platelet Count 268 Mean Platelet Volume 8.6 Neutrophils % 63.3 Lymphocytes % 19.4 Monocytes % 11.0 Eosinophils % 5.5 Basophils % 0.6 Nucleated Red Blood Cells % 0.0 Neutrophils # 5.2 Lymphocytes # 1.6 Monocytes # 0.9 Eosinophils # 0.5 Basophils # 0.1 Nucleated Red Blood Cells # 0.0 Sodium Level 130 L Potassium Level 4.3 Chloride Level 95 L Carbon Dioxide Level 29 Anion Gap 10 Blood Urea Nitrogen 11 Creatinine 0.74 Glucose Level 120 Calcium Level 9.1 Medications Medications Current Medications Sodium Chloride (NS) 1,000 ml @ 50 mls/hr Q20H IV Last administered on 10:50; Admin Dose 50 MLS/HR; Start 04/15/17 at 20:38 Ondansetron HCl (Zofran Inj) 4 mg Q6H PRN IV NAUSEA AND/OR VOMITING; Start at 21:00 Acetaminophen (Tylenol Tab) 650 mg Q6H PRN PO PAIN LEVEL 1-3 OR FEVER Last administered on 04/18/17 00:46; Admin Dose 650 MG; Start 04/15/17 at 21:00 Morphine Sulfate (morphine) 2 mg Q4H PRN IV PAIN LEVEL 7-10; Start 04/15/17 at 21:00 Enoxaparin Sodium (Lovenox) 30 mg DAILY SC Last administered on 04/21/17 08:34 ; Admin Dose 30 MG; Start 04/16/17 at 09:00 Diagnostic Test (Pha) (Accu-Chek) Check 2 am Accucheck only if... 02 XX ; Start 04/17/17 at 02:00 Miscellaneous Information 1 ea NOTE XX ; Start 04/16/17 at 11:30 Glucose (Glutose) 15 gm Q15M PRN PO DECREASED GLUCOSE; Start 04/16/17 at 11:30 Glucose (Glutose) 22.5 gm Q15M PRN PO DECREASED GLUCOSE; Start 04/16/17 at 11: 30 Dextrose (D50w Syringe) 25 ml Q15M PRN IV DECREASED GLUCOSE; Start 04/16/17 at 11:30 Dextrose (D50w Syringe) 50 ml Q15M PRN IV DECREASED GLUCOSE; Start 04/16/17 at 11:30 Glucagon (Glucagen) 1 mg Q15M PRN IM DECREASED GLUCOSE; Start 04/16/17 at 11:30 Glucose (Glutose) 15 gm Q15M PRN BUCCAL DECREASED GLUCOSE; Start 04/16/17 at 11 :30 Salmeterol Xinafoate/ Fluticasone (Advair 250/50 Diskus) 1 inh BID INH Last administered on 04/21/17 08:26; Admin Dose 1 INH; Start 6/26/17 at 21:00 Hydralazine HCl (Apresoline) 10 mg Q6H PRN IV FOR SBP GREATER THAN 160 Last administered on 04/19/17 13:02; Admin Dose 10 MG; Start 04/16/17 at 21:30 Aspirin (Aspirin) 81 mg DAILY PO Last administered on 04/21/17 08:24; Admin Dose 81 MG; Start 04/18/17 at 09:00 Diltiazem HCl (Cardizem Cd) 180 mg DAILY PO Last administered on 04/21/17 08:26 ; Admin Dose 180 MG; Start 04/18/17 at 09:00 Atorvastatin Calcium (Lipitor) 10 mg DAILY@21 PO Last administered on 20:24; Admin Dose 10 MG; Start 04/18/17 at 21:00 Amlodipine Besylate (Norvasc) 5 mg BID PO Last administered on 04/21/17 08:25; Admin Dose 5 MG; Start 04/18/17 at 21:00 Losartan Potassium (Cozaar) 50 mg BID PO Last administered on 04/21/17 08:25; Admin Dose 50 MG; Start 04/19/17 at 21:00 Famotidine (Pepcid) 20 mg DAILY PO Last administered on 04/21/17 08:24; Admin Dose 20 MG; Start 04/21/17 at 09:00 QIAN DOYLE MD Apr 21, 2017 17:59
[2017-04-21 20:09] VITALS: BP 142/65; RESP 20
[2017-04-21] MEDS: ATORVASTATIN 10 MG TAB PO SCH (20:42)
[2017-04-21] MEDS: ACETAMINOPHEN 325 MG TAB PO PRN (23:04)
[2017-04-22] MEDS: SOD CHLORIDE 0.9% 1,000 ML IV SCH ×3 (01:12→21:11)
[2017-04-22] MEDS: ACCU-CHEK XX SCH ×5 (01:56→21:11)
[2017-04-22] MEDS: LEVOTHYROXINE 112 MCG TAB PO SCH (06:35)
[2017-04-22 06:42] LABS: BASOPHIL # 0.1 10^3/ul (0.0-0.1); EOSINOPHILS # 0.5 10^3/ul (0.0-0.5); EOSINOPHILS % 6.8 % (0.0-7.0); HEMATOCRIT 37.6 % (37.0-47.0); HEMOGLOBIN 12.4 g/dl (12.0-16.0); LYMPHOCYTES # 1.6 10^3/ul (0.8-2.9); LYMPHOCYTES % 21.3 % (15.0-51.0); MEAN CORPUSCULAR HEMOGLOBIN 30.1 pg (29.0-33.0); MEAN CORPUSCULAR VOLUME 91.3 fl (82.0-101.0); MEAN PLATELET VOLUME 8.6 fl (7.4-10.4); MONOCYTE # 0.8 10^3/ul (0.3-0.9); MONOCYTES % 10.2 % (0.0-11.0); NEUTROPHIL # 4.4 10^3/ul (1.6-7.5); NEUTROPHILS % 60.2 % (39.0-77.0); PLATELET COUNT 283 10^3/UL (140-415); RED BLOOD COUNT 4.12 10^6/ul (4.20-5.40); RED CELL DISTRIBUTION WIDTH 12.1 % (11.5-14.5); WHITE BLOOD COUNT 7.3 10^3/ul (4.8-10.8)
[2017-04-22 07:07] LABS: ADD SCAN DIFF NO
[2017-04-22 07:12] LABS: CALCIUM 9.5 mg/dl (8.4-10.2); CREATININE 0.67 mg/dl (0.44-1.00); POTASSIUM 4.5 mmol/L (3.5-5.1)
[2017-04-22 07:38] LABS: THYROID STIMULATING HORMONE 1.24 MIU/L (0.465-4.680)
[2017-04-22 08:04] VITALS: BP 137/66; PULSE 76; RESP 18
[2017-04-22] MEDS: FAMOTIDINE 20 MG TAB PO SCH (08:08)
[2017-04-22] MEDS: ASPIRIN 81 MG TAB PO SCH (08:08)
[2017-04-22] MEDS: LOSARTAN 50 MG TAB PO SCH ×2 (08:08→21:10)
[2017-04-22] MEDS: AMLODIPINE 5 MG TAB PO SCH ×2 (08:09→21:10)
[2017-04-22] MEDS: DILTIAZEM (CD) 180 MG CAP PO SCH (08:10)
[2017-04-22] MEDS: SALMETEROL/FLUTICASONE 250/50 INHA INH SCH ×2 (08:10→21:10)
[2017-04-22] MEDS: ENOXAPARIN 30 MG/0.3 ML SYG SC SCH (08:26)
[2017-04-22] MEDS: metFORMIN 500 MG TAB PO SCH ×2 (12:15→17:30)
--- NOTE | 2017-04-22 12:33 | CONS ---
Date/Time of Note Date/Time of Note DATE: 04/22/17 TIME: 12:28 Assessment/Plan Assessment/Plan Chief Complaint/Hosp Course 76-year-old female with past medical history of COPD, hypertension, diabetes, depression who presents with nausea and vomiting worsening over the past 2-3 days prior to admission. Symptoms occur with any eating. She also developed symptoms of shortness of breath at times when she feels nauseous as well as chest pain. She does complain of intermittent chest pain. It occurs approximately once per month. At times at rest and at times with activity. Chest pain at times is burning like occasionally heavy or occasionally sharp. Symptoms are not consistent and do not occur with activity every time. 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 She is currently feeling better. She underwent EGD pt presented with Na 113 on admissio, which improved to 134 then again dropped down to 130 Problems: Additional Assessment/Plan 1. Severe Hyponatremia with Na 113 on admission - pt has initially Hypovolemic hyponatremia with Na 113 on admission which corrected to 134 then again dropping down despite being on IVF NS at 50 cc.hr- now improved to 135 on 04/22/17 2. s/p Acute encephalopathy 2/2 severe hyponatremia 3. HTN 4. HL 5. Diabetes melitus Plan: continue Current IVF NS at 50 cc/hr x 1 more day then stop EF normal on ECHO will follow up Ok to d/c from renal point of view follow up wiht Dr.Kalpesh Ellison in 1-2 week after discharge Consultation Date/Type/Reason Admit Date/Time Apr 18, 2017 at 16:27 Initial Consult Date 04/21/17 Type of Consultation: NEPHROLOGY Referring Provider: ROSIE HERNANDEZ MD 24 HR Interval Summary Free Text/Dictation no acute events, BP stable, Na improved to135 Exam/Review of Systems Vital Signs Vitals Vital Signs Date Time Temp Pulse Resp B/P Pulse Ox O2 Delivery O2 Flow Rate FiO2 04/22/17 08:04 97.7 76 18 137/66 95 Room Air Intake and Output 04/21/17 04/21/17 04/22/17 15:00 23:00 07:00 Intake Total 1360 ml 1010 ml Balance 1360 ml 1010 ml Exam Constitutional: alert, oriented Psych: no complaints Head: normocephalic ENMT: nl external ears & nose Neck: supple Respiratory: clear to auscultation, normal air movement Cardiovascular: regular rate and rhythm Gastrointestinal: bowel sounds, non-tender, soft Musculoskeletal: nl extremities to inspection Extremities: normal pulses Neurological: FINANCIAL ADVISOR II-XII intact Lymph: nl lymph nodes Results Result Diagram: 04/22/17 0535 04/22/17 0535 Results 24 hrs Laboratory Tests Test 04/21/17 17:56 04/21/17 20:45 04/22/17 04:35 04/22/17 05:35 Bedside Glucose 131 134 Urine Osmolality 240 L Urine Random Sodium 68 White Blood Count 7.3 Red Blood Count 4.12 L Hemoglobin 12.4 Hematocrit 37.6 Mean Corpuscular Volume 91.3 Mean Corpuscular Hemoglobin 30.1 Mean Corpuscular Hemoglobin Concent 33.0 Red Cell Distribution Width 12.1 Platelet Count 283 Mean Platelet Volume 8.6 Neutrophils % 60.2 Lymphocytes % 21.3 Monocytes % 10.2 Eosinophils % 6.8 Basophils % 1.0 Nucleated Red Blood Cells % 0.0 Neutrophils # 4.4 Lymphocytes # 1.6 Monocytes # 0.8 Eosinophils # 0.5 Basophils # 0.1 Nucleated Red Blood Cells # 0.0 Sodium Level 135 Potassium Level 4.5 Chloride Level 94 L Carbon Dioxide Level 28 Anion Gap 18 #H Blood Urea Nitrogen 14 Creatinine 0.67 Glucose Level 114 Osmolality 278 L Calcium Level 9.5 Thyroid Stimulating Hormone (TSH) 1.240 Free Thyroxine 1.30 Random Cortisol 11.5 Test 04/22/17 08:07 Bedside Glucose 118 Medications Medications Current Medications Sodium Chloride (NS) 1,000 ml @ 50 mls/hr Q20H IV Last administered on 08:14; Admin Dose 50 MLS/HR; Start 04/15/17 at 20:38 Ondansetron HCl (Zofran Inj) 4 mg Q6H PRN IV NAUSEA AND/OR VOMITING; Start at 21:00 Acetaminophen (Tylenol Tab) 650 mg Q6H PRN PO PAIN LEVEL 1-3 OR FEVER Last administered on 04/21/17 23:04; Admin Dose 650 MG; Start 04/15/17 at 21:00 Morphine Sulfate (morphine) 2 mg Q4H PRN IV PAIN LEVEL 7-10; Start 04/15/17 at 21:00 Enoxaparin Sodium (Lovenox) 30 mg DAILY SC Last administered on 04/22/17 08:26 ; Admin Dose 30 MG; Start 04/16/17 at 09:00 Diagnostic Test (Pha) (Accu-Chek) Check 2 am Accucheck only if... 02 XX ; Start 04/17/17 at 02:00 Miscellaneous Information 1 ea NOTE XX ; Start 04/16/17 at 11:30 Glucose (Glutose) 15 gm Q15M PRN PO DECREASED GLUCOSE; Start 04/16/17 at 11:30 Glucose (Glutose) 22.5 gm Q15M PRN PO DECREASED GLUCOSE; Start 04/16/17 at 11: 30 Dextrose (D50w Syringe) 25 ml Q15M PRN IV DECREASED GLUCOSE; Start 04/16/17 at 11:30 Dextrose (D50w Syringe) 50 ml Q15M PRN IV DECREASED GLUCOSE; Start 04/16/17 at 11:30 Glucagon (Glucagen) 1 mg Q15M PRN IM DECREASED GLUCOSE; Start 04/16/17 at 11:30 Glucose (Glutose) 15 gm Q15M PRN BUCCAL DECREASED GLUCOSE; Start 04/16/17 at 11 :30 Salmeterol Xinafoate/ Fluticasone (Advair 250/50 Diskus) 1 inh BID INH Last administered on 04/22/17 08:10; Admin Dose 1 INH; Start 04/16/17 at 21:00 Hydralazine HCl (Apresoline) 10 mg Q6H PRN IV FOR SBP GREATER THAN 160 Last administered on 04/19/17 13:02; Admin Dose 10 MG; Start 04/16/17 at 21:30 Aspirin (Aspirin) 81 mg DAILY PO Last administered on 04/22/17 08:08; Admin Dose 81 MG; Start 04/18/17 at 09:00 Diltiazem HCl (Cardizem Cd) 180 mg DAILY PO Last administered on 04/22/17 08:10 ; Admin Dose 180 MG; Start 04/18/17 at 09:00 Atorvastatin Calcium (Lipitor) 10 mg DAILY@21 PO Last administered on 04/21/17 20:42; Admin Dose 10 MG; Start 04/18/17 at 21:00 Amlodipine Besylate (Norvasc) 5 mg BID PO Last administered on 04/22/17 08:09; Admin Dose 5 MG; Start 04/18/17 at 21:00 Losartan Potassium (Cozaar) 50 mg BID PO Last administered on 04/22/17 08:08; Admin Dose 50 MG; Start 04/19/17 at 21:00 Famotidine (Pepcid) 20 mg DAILY PO Last administered on 04/22/17 08:08; Admin Dose 20 MG; Start 04/21/17 at 09:00 JACINDA ELLISON MD Apr 22, 2017 12:33
--- NOTE | 2017-04-22 13:16 | PN ---
Date/Time of Note Date/Time of Note DATE: 04/22/17 TIME: 13:14 Assessment/Plan VTE Prophylaxis VTE Prophylaxis Intervention: other Lines/Catheters IV Catheter Type (from Nrsg): Peripheral IV Urinary Cath still in place: No Assessment/Plan Chief Complaint/Hosp Course Nausea, vomiting, shortness of breath: improved chest pain: atypical. has resolved now. Hypertension: under control now with Preserved ejection fraction Mild left ventricular hypertrophy Diabetes cont current cardiac care DM control DC planning as per IM Dr Denson will resume cardiac care tomorrow Problems: Subjective 24 Hr Interval Summary Free Text/Dictation pt with no chest pain or pressure. c/o mild neck pain on the back of her neck, worse with flexion of neck. no palpitations Exam/Review of Systems Vital Signs Vitals Vital Signs Date Time Temp Pulse Resp B/P Pulse Ox O2 Delivery O2 Flow Rate FiO2 04/22/17 08:04 97.7 76 18 137/66 95 Room Air Intake and Output 04/21/17 04/21/17 04/22/17 15:00 23:00 07:00 Intake Total 1360 ml 1010 ml Balance 1360 ml 1010 ml Exam General: no acute distress HEENT: NC/AT. pupils are equal. round. NECK: NO JVD. no stridor. CV: RRR. systolic murmur; no gallop or rubs. PULM: no wheezing or rhonchi. GI: SOFT, NT, ND, no rebound or guarding Extremity: trace B/L LE edema. no clubbing. neuro: awake and alert, OX3. Psych: calm and pleasant rectal: deferred : DEFERRED Results Result Diagram: 04/22/17 0535 04/22/17 0535 Results 24 hrs Laboratory Tests Test 04/21/17 17:56 04/21/17 20:45 04/22/17 04:35 04/22/17 05:35 Bedside Glucose 131 134 Urine Osmolality 240 L Urine Random Sodium 68 White Blood Count 7.3 Red Blood Count 4.12 L Hemoglobin 12.4 Hematocrit 37.6 Mean Corpuscular Volume 91.3 Mean Corpuscular Hemoglobin 30.1 Mean Corpuscular Hemoglobin Concent 33.0 Red Cell Distribution Width 12.1 Platelet Count 283 Mean Platelet Volume 8.6 Neutrophils % 60.2 Lymphocytes % 21.3 Monocytes % 10.2 Eosinophils % 6.8 Basophils % 1.0 Nucleated Red Blood Cells % 0.0 Neutrophils # 4.4 Lymphocytes # 1.6 Monocytes # 0.8 Eosinophils # 0.5 Basophils # 0.1 Nucleated Red Blood Cells # 0.0 Sodium Level 135 Potassium Level 4.5 Chloride Level 94 L Carbon Dioxide Level 28 Anion Gap 18 #H Blood Urea Nitrogen 14 Creatinine 0.67 Glucose Level 114 Osmolality 278 L Calcium Level 9.5 Thyroid Stimulating Hormone (TSH) 1.240 Free Thyroxine 1.30 Random Cortisol 11.5 Test 04/22/17 08:07 04/22/17 12:14 Bedside Glucose 118 111 Medications Medications Current Medications Sodium Chloride (NS) 1,000 ml @ 50 mls/hr Q20H IV Last administered on 08:14; Admin Dose 50 MLS/HR; Start 04/15/17 at 20:38 Ondansetron HCl (Zofran Inj) 4 mg Q6H PRN IV NAUSEA AND/OR VOMITING; Start at 21:00 Acetaminophen (Tylenol Tab) 650 mg Q6H PRN PO PAIN LEVEL 1-3 OR FEVER Last administered on 04/21/17 23:04; Admin Dose 650 MG; Start 04/15/17 at 21:00 Morphine Sulfate (morphine) 2 mg Q4H PRN IV PAIN LEVEL 7-10; Start 04/15/17 at 21:00 Enoxaparin Sodium (Lovenox) 30 mg DAILY SC Last administered on 04/22/17 08:26 ; Admin Dose 30 MG; Start 04/16/17 at 09:00 Diagnostic Test (Pha) (Accu-Chek) Check 2 am Accucheck only if... 02 XX ; Start 04/17/17 at 02:00 Miscellaneous Information 1 ea NOTE XX ; Start 04/16/17 at 11:30 Glucose (Glutose) 15 gm Q15M PRN PO DECREASED GLUCOSE; Start 04/16/17 at 11:30 Glucose (Glutose) 22.5 gm Q15M PRN PO DECREASED GLUCOSE; Start 04/16/17 at 11: 30 Dextrose (D50w Syringe) 25 ml Q15M PRN IV DECREASED GLUCOSE; Start 04/16/17 at 11:30 Dextrose (D50w Syringe) 50 ml Q15M PRN IV DECREASED GLUCOSE; Start 04/16/17 at 11:30 Glucagon (Glucagen) 1 mg Q15M PRN IM DECREASED GLUCOSE; Start 04/16/17 at 11:30 Glucose (Glutose) 15 gm Q15M PRN BUCCAL DECREASED GLUCOSE; Start 04/16/17 at 11 :30 Salmeterol Xinafoate/ Fluticasone (Advair 250/50 Diskus) 1 inh BID INH Last administered on 04/22/17 08:10; Admin Dose 1 INH; Start 04/16/17 at 21:00 Hydralazine HCl (Apresoline) 10 mg Q6H PRN IV FOR SBP GREATER THAN 160 Last administered on 04/19/17 13:02; Admin Dose 10 MG; Start 04/16/17 at 21:30 Aspirin (Aspirin) 81 mg DAILY PO Last administered on 04/22/17 08:08; Admin Dose 81 MG; Start 04/18/17 at 09:00 Diltiazem HCl (Cardizem Cd) 180 mg DAILY PO Last administered on 04/22/17 08:10 ; Admin Dose 180 MG; Start 04/18/17 at 09:00 Atorvastatin Calcium (Lipitor) 10 mg DAILY@21 PO Last administered on 04/21/17 20:42; Admin Dose 10 MG; Start 04/18/17 at 21:00 Amlodipine Besylate (Norvasc) 5 mg BID PO Last administered on 04/22/17 08:09; Admin Dose 5 MG; Start 04/18/17 at 21:00 Losartan Potassium (Cozaar) 50 mg BID PO Last administered on 04/22/17 08:08; Admin Dose 50 MG; Start 04/19/17 at 21:00 Famotidine (Pepcid) 20 mg DAILY PO Last administered on 04/22/17 08:08; Admin Dose 20 MG; Start 04/21/17 at 09:00 QIAN DOYLE MD Apr 22, 2017 13:16
--- NOTE | 2017-04-22 13:52 | PN ---
Date/Time of Note Date/Time of Note DATE: 04/22/17 TIME: 13:50 Assessment/Plan Lines/Catheters IV Catheter Type (from [facility]): Peripheral IV Urinary Cath still in place: No Assessment/Plan Assessment/Plan 1. Hyponatremia- resolved - per nephrology consult- Dr Layne Parr 1. Intractable nausea and vomiting. Continue Zofran p.r.n. for nausea. is following the patient from gastroenterology consultation.S/ p upper endoscopy with notion of gastritis. Continue Pepcid. 2. Chest pain, rule out acute coronary syndrome. Dr. Denson is asked to see patient in cardiology consultation. 3. Hypothyroidism. Continue Synthroid. 4. Possible adverse reaction to selective serotonin reuptake inhibitor. Hold paroxetine for now. 5. Acute hyponatremia, resolving. 6. Acute metabolic encephalopathy secondary to severe hyponatremia. 7. Chronic obstructive pulmonary disease. Continue Advair, continue breathing treatment p.r.n. for shortness of breath. 8. Hypertension. Continue patient's home antihypertensive medication. 9. Diabetes mellitus. Continue metformin and NovoLog per mild algorithm sliding scale, carbohydrate-controlled diet. Further recommendations based on clinical course. Plan of care discussed with Dr. Zaman. Exam/Review of Systems Vital Signs Vitals Vital Signs Date Time Temp Pulse Resp B/P Pulse Ox O2 Delivery O2 Flow Rate FiO2 04/22/17 08:04 97.7 76 18 137/66 95 Room Air Intake and Output 04/21/17 04/21/17 04/22/17 15:00 23:00 07:00 Intake Total 1360 ml 1010 ml Balance 1360 ml 1010 ml Exam Constitutional: alert, oriented, well developed Respiratory: clear to auscultation Cardiovascular: nl pulses, regular rate and rhythm Gastrointestinal: soft Musculoskeletal: nl extremities to inspection Extremities: normal pulses Neurological: nl mental status, nl speech Results Result Diagram: 04/22/17 0535 04/22/17 0535 Results 24 hrs Laboratory Tests Test 04/21/17 17:56 04/21/17 20:45 04/22/17 04:35 04/22/17 05:35 Bedside Glucose 131 134 Urine Osmolality 240 L Urine Random Sodium 68 White Blood Count 7.3 Red Blood Count 4.12 L Hemoglobin 12.4 Hematocrit 37.6 Mean Corpuscular Volume 91.3 Mean Corpuscular Hemoglobin 30.1 Mean Corpuscular Hemoglobin Concent 33.0 Red Cell Distribution Width 12.1 Platelet Count 283 Mean Platelet Volume 8.6 Neutrophils % 60.2 Lymphocytes % 21.3 Monocytes % 10.2 Eosinophils % 6.8 Basophils % 1.0 Nucleated Red Blood Cells % 0.0 Neutrophils # 4.4 Lymphocytes # 1.6 Monocytes # 0.8 Eosinophils # 0.5 Basophils # 0.1 Nucleated Red Blood Cells # 0.0 Sodium Level 135 Potassium Level 4.5 Chloride Level 94 L Carbon Dioxide Level 28 Anion Gap 18 #H Blood Urea Nitrogen 14 Creatinine 0.67 Glucose Level 114 Osmolality 278 L Calcium Level 9.5 Thyroid Stimulating Hormone (TSH) 1.240 Free Thyroxine 1.30 Random Cortisol 11.5 Test 04/22/17 08:07 04/22/17 12:14 Bedside Glucose 118 111 Medications Medications Current Medications Sodium Chloride (NS) 1,000 ml @ 50 mls/hr Q20H IV Last administered on 08:14; Admin Dose 50 MLS/HR; Start 04/15/17 at 20:38 Ondansetron HCl (Zofran Inj) 4 mg Q6H PRN IV NAUSEA AND/OR VOMITING; Start at 21:00 Acetaminophen (Tylenol Tab) 650 mg Q6H PRN PO PAIN LEVEL 1-3 OR FEVER Last administered on 04/21/17 23:04; Admin Dose 650 MG; Start 04/15/17 at 21:00 Morphine Sulfate (morphine) 2 mg Q4H PRN IV PAIN LEVEL 7-10; Start 04/15/17 at 21:00 Enoxaparin Sodium (Lovenox) 30 mg DAILY SC Last administered on 04/22/17 08:26 ; Admin Dose 30 MG; Start 04/16/17 at 09:00 Diagnostic Test (Pha) (Accu-Chek) Check 2 am Accucheck only if... 02 XX ; Start 04/17/17 at 02:00 Miscellaneous Information 1 ea NOTE XX ; Start 04/16/17 at 11:30 Glucose (Glutose) 15 gm Q15M PRN PO DECREASED GLUCOSE; Start 04/16/17 at 11:30 Glucose (Glutose) 22.5 gm Q15M PRN PO DECREASED GLUCOSE; Start 04/16/17 at 11: 30 Dextrose (D50w Syringe) 25 ml Q15M PRN IV DECREASED GLUCOSE; Start 04/16/17 at 11:30 Dextrose (D50w Syringe) 50 ml Q15M PRN IV DECREASED GLUCOSE; Start 04/16/17 at 11:30 Glucagon (Glucagen) 1 mg Q15M PRN IM DECREASED GLUCOSE; Start 04/16/17 at 11:30 Glucose (Glutose) 15 gm Q15M PRN BUCCAL DECREASED GLUCOSE; Start 04/16/17 at 11 :30 Salmeterol Xinafoate/ Fluticasone (Advair 250/50 Diskus) 1 inh BID INH Last administered on 04/22/17 08:10; Admin Dose 1 INH; Start 04/16/17 at 21:00 Hydralazine HCl (Apresoline) 10 mg Q6H PRN IV FOR SBP GREATER THAN 160 Last administered on 04/19/17 13:02; Admin Dose 10 MG; Start 04/16/17 at 21:30 Aspirin (Aspirin) 81 mg DAILY PO Last administered on 04/22/17 08:08; Admin Dose 81 MG; Start 04/18/17 at 09:00 Diltiazem HCl (Cardizem Cd) 180 mg DAILY PO Last administered on 04/22/17 08:10 ; Admin Dose 180 MG; Start 04/18/17 at 09:00 Atorvastatin Calcium (Lipitor) 10 mg DAILY@21 PO Last administered on 04/21/17 20:42; Admin Dose 10 MG; Start 04/18/17 at 21:00 Amlodipine Besylate (Norvasc) 5 mg BID PO Last administered on 04/22/17 08:09; Admin Dose 5 MG; Start 04/18/17 at 21:00 Losartan Potassium (Cozaar) 50 mg BID PO Last administered on 04/22/17 08:08; Admin Dose 50 MG; Start 04/19/17 at 21:00 Famotidine (Pepcid) 20 mg DAILY PO Last administered on 04/22/17 08:08; Admin Dose 20 MG; Start 04/21/17 at 09:00 RAVIN BARRIOS Apr 22, 2017 13:52
--- NOTE | 2017-04-22 15:52 | RADRPT ---
PROCEDURE: Chest 2 views. CLINICAL INDICATION: Cough TECHNIQUE: PA and lateral views of the chest were obtained. COMPARISON: April 16, 2017 FINDINGS: The heart is large. Calcified atherosclerosis is noted in the aorta. The lungs are hyperexpanded. Mild interstitial prominence is seen in both lungs. Atelectasis versus minimal infiltrates are note d at the lung bases. The osseous structures are osteopenic, but appear grossly intact. Moderate dege nerative changes are identified in the spine. IMPRESSION: Cardiomegaly with calcified atherosclerosis in the aorta. Stable atelectasis versus minimal infiltrates at the lung bases. Hyperexpanded lungs with diffuse mild interstitial prominence in both lungs. Interstitial prominenc e could be chronic. Findings could reflect COPD. RPTAT: AA .Jovanny Jean MD, Date Time Electronically viewed and signed by .Jovanny Jean MD, on 04/22/2017 15:52 .P/
[2017-04-22] MEDS: GUAIFENESIN/DM 5ML CUP PO PRN (16:19)
[2017-04-22 19:18] VITALS: BP 154/72; RESP 18
[2017-04-22] MEDS: ATORVASTATIN 10 MG TAB PO SCH (21:10)
[2017-04-23] MEDS: ACCU-CHEK XX SCH ×6 (02:00→23:45)
[2017-04-23] MEDS: SOD CHLORIDE 0.9% 1,000 ML IV SCH ×3 (04:42→23:19)
[2017-04-23 05:50] LABS: BASOPHIL # 0.1 10^3/ul (0.0-0.1); BASOPHILS % 0.7 % (0.0-2.0); EOSINOPHILS # 0.4 10^3/ul (0.0-0.5); EOSINOPHILS % 4.7 % (0.0-7.0); HEMATOCRIT 37.7 % (37.0-47.0); HEMOGLOBIN 12.5 g/dl (12.0-16.0); LYMPHOCYTES # 1.5 10^3/ul (0.8-2.9); LYMPHOCYTES % 17.7 % (15.0-51.0); MEAN CORPUSCULAR HEMOGLOBIN 30.3 pg (29.0-33.0); MEAN CORPUSCULAR HGB CONC 33.2 g/dl (32.0-37.0); MEAN CORPUSCULAR VOLUME 91.3 fl (82.0-101.0); MEAN PLATELET VOLUME 8.6 fl (7.4-10.4); MONOCYTE # 0.9 10^3/ul (0.3-0.9); MONOCYTES % 10.4 % (0.0-11.0); NEUTROPHIL # 5.5 10^3/ul (1.6-7.5); PLATELET COUNT 276 10^3/UL (140-415); RED BLOOD COUNT 4.13 10^6/ul (4.20-5.40); RED CELL DISTRIBUTION WIDTH 12.1 % (11.5-14.5); WHITE BLOOD COUNT 8.4 10^3/ul (4.8-10.8)
[2017-04-23 06:00] LABS: ADD SCAN DIFF NO
[2017-04-23 06:01] LABS: CALCIUM 9.4 mg/dl (8.4-10.2); CREATININE 0.7 mg/dl (0.44-1.00); POTASSIUM 4.1 mmol/L (3.5-5.1)
[2017-04-23] MEDS: LEVOTHYROXINE 112 MCG TAB PO SCH (06:07)
[2017-04-23 07:52] VITALS: BP 140/67; RESP 18
[2017-04-23] MEDS: DILTIAZEM (CD) 180 MG CAP PO SCH (08:55)
[2017-04-23] MEDS: ASPIRIN 81 MG TAB PO SCH (08:56)
[2017-04-23] MEDS: AMLODIPINE 5 MG TAB PO SCH ×2 (08:56→20:48)
[2017-04-23] MEDS: FAMOTIDINE 20 MG TAB PO SCH (08:56)
[2017-04-23] MEDS: LOSARTAN 50 MG TAB PO SCH ×2 (08:56→20:47)
[2017-04-23] MEDS: SALMETEROL/FLUTICASONE 250/50 INHA INH SCH ×2 (08:56→20:48)
[2017-04-23] MEDS: ENOXAPARIN 30 MG/0.3 ML SYG SC SCH (09:05)
[2017-04-23] MEDS: GUAIFENESIN/DM 5ML CUP PO PRN (09:13)
[2017-04-23] MEDS: metFORMIN 500 MG TAB PO SCH ×2 (12:21→17:23)
--- NOTE | 2017-04-23 13:32 | CONS ---
Date/Time of Note Date/Time of Note DATE: 04/23/17 TIME: 13:31 Assessment/Plan Assessment/Plan Additional Assessment/Plan 1. Severe Hyponatremia with Na 113 on admission - pt has initially Hypovolemic hyponatremia with Na 113 on admission which corrected to 134 then again dropping down despite being on IVF NS at 50 cc.hr- now improved to 135 on 04/22/17 2. s/p Acute encephalopathy 2/2 severe hyponatremia 3. HTN 4. HL 5. Diabetes melitus Plan: Na dropped to 132- will increase IVF NS to 75 cc/hr EF normal on ECHO will follow up follow up wiht Dr.Kalpesh Ellison in 1-2 week after discharge Consultation Date/Type/Reason Admit Date/Time Apr 18, 2017 at 16:27 Initial Consult Date 04/21/17 Type of Consultation: NEPHROLOGY Referring Provider: ROSIE HERNANDEZ MD Exam/Review of Systems Vital Signs Vitals Vital Signs Date Time Temp Pulse Resp B/P Pulse Ox O2 Delivery O2 Flow Rate FiO2 04/23/17 07:52 98.2 88 18 140/67 94 04/22/17 08:04 Room Air Intake and Output 04/22/17 04/22/17 04/23/17 14:59 22:59 06:59 Intake Total 150 ml 1320 ml 510 ml Balance 150 ml 1320 ml 510 ml Exam Constitutional: alert, oriented Psych: no complaints Head: normocephalic ENMT: nl external ears & nose Neck: supple Respiratory: clear to auscultation, normal air movement Cardiovascular: regular rate and rhythm Gastrointestinal: bowel sounds, non-tender, soft Musculoskeletal: nl extremities to inspection Extremities: normal pulses Neurological: HEAT TREATING BLUER II-XII intact Lymph: nl lymph nodes Results Result Diagram: 04/23/17 0510 04/23/17 0510 Results 24 hrs Laboratory Tests Test 04/22/17 17:27 04/22/17 21:08 04/23/17 05:10 04/23/17 08:18 Bedside Glucose 186 146 111 White Blood Count 8.4 Red Blood Count 4.13 L Hemoglobin 12.5 Hematocrit 37.7 Mean Corpuscular Volume 91.3 Mean Corpuscular Hemoglobin 30.3 Mean Corpuscular Hemoglobin Concent 33.2 Red Cell Distribution Width 12.1 Platelet Count 276 Mean Platelet Volume 8.6 Neutrophils % 66.0 Lymphocytes % 17.7 Monocytes % 10.4 Eosinophils % 4.7 Basophils % 0.7 Nucleated Red Blood Cells % 0.0 Neutrophils # 5.5 Lymphocytes # 1.5 Monocytes # 0.9 Eosinophils # 0.4 Basophils # 0.1 Nucleated Red Blood Cells # 0.0 Sodium Level 132 L Potassium Level 4.1 Chloride Level 95 L Carbon Dioxide Level 29 Anion Gap 12 Blood Urea Nitrogen 13 Creatinine 0.70 Glucose Level 118 Calcium Level 9.4 Test 04/23/17 12:20 Bedside Glucose 133 Medications Medications Current Medications Sodium Chloride (NS) 1,000 ml @ 50 mls/hr Q20H IV Last administered on 04:42; Admin Dose 50 MLS/HR; Start 04/15/17 at 20:38 Ondansetron HCl (Zofran Inj) 4 mg Q6H PRN IV NAUSEA AND/OR VOMITING; Start at 21:00 Acetaminophen (Tylenol Tab) 650 mg Q6H PRN PO PAIN LEVEL 1-3 OR FEVER Last administered on 04/21/17 23:04; Admin Dose 650 MG; Start 04/15/17 at 21:00 Morphine Sulfate (morphine) 2 mg Q4H PRN IV PAIN LEVEL 7-10; Start 04/15/17 at 21:00 Enoxaparin Sodium (Lovenox) 30 mg DAILY SC Last administered on 04/23/17 09:05 ; Admin Dose 30 MG; Start 04/16/17 at 09:00 Diagnostic Test (Pha) (Accu-Chek) Check 2 am Accucheck only if... 02 XX ; Start 04/17/17 at 02:00 Miscellaneous Information 1 ea NOTE XX ; Start 04/16/17 at 11:30 Glucose (Glutose) 15 gm Q15M PRN PO DECREASED GLUCOSE; Start 04/16/17 at 11:30 Glucose (Glutose) 22.5 gm Q15M PRN PO DECREASED GLUCOSE; Start 04/16/17 at 11: 30 Dextrose (D50w Syringe) 25 ml Q15M PRN IV DECREASED GLUCOSE; Start 04/16/17 at 11:30 Dextrose (D50w Syringe) 50 ml Q15M PRN IV DECREASED GLUCOSE; Start 04/16/17 at 11:30 Glucagon (Glucagen) 1 mg Q15M PRN IM DECREASED GLUCOSE; Start 04/16/17 at 11:30 Glucose (Glutose) 15 gm Q15M PRN BUCCAL DECREASED GLUCOSE; Start 04/16/17 at 11 :30 Salmeterol Xinafoate/ Fluticasone (Advair 250/50 Diskus) 1 inh BID INH Last administered on 04/23/17 08:56; Admin Dose 1 INH; Start 04/16/17 at 21:00 Hydralazine HCl (Apresoline) 10 mg Q6H PRN IV FOR SBP GREATER THAN 160 Last administered on 04/19/17 13:02; Admin Dose 10 MG; Start 04/16/17 at 21:30 Aspirin (Aspirin) 81 mg DAILY PO Last administered on 04/23/17 08:56; Admin Dose 81 MG; Start 04/18/17 at 09:00 Diltiazem HCl (Cardizem Cd) 180 mg DAILY PO Last administered on 04/23/17 08:55 ; Admin Dose 180 MG; Start 04/18/17 at 09:00 Atorvastatin Calcium (Lipitor) 10 mg DAILY@21 PO Last administered on 04/22/17 21:10; Admin Dose 10 MG; Start 04/18/17 at 21:00 Amlodipine Besylate (Norvasc) 5 mg BID PO Last administered on 04/23/17 08:56; Admin Dose 5 MG; Start 04/18/17 at 21:00 Losartan Potassium (Cozaar) 50 mg BID PO Last administered on 04/23/17 08:56; Admin Dose 50 MG; Start 04/19/17 at 21:00 Famotidine (Pepcid) 20 mg DAILY PO Last administered on 04/23/17 08:56; Admin Dose 20 MG; Start 04/21/17 at 09:00 Guaifenesin/ Dextromethorphan (Robitussin Dm Liquid Cup) 10 ml Q6H PRN PO COUGH Last administered on 04/23/17 09:13; Admin Dose 10 ML; Start 04/22/17 at 14 :00 JACINDA ELLISON MD Apr 23, 2017 13:32
--- NOTE | 2017-04-23 15:25 | PN ---
Date/Time of Note Date/Time of Note DATE: 04/23/17 TIME: 15:20 Assessment/Plan VTE Prophylaxis VTE Prophylaxis Intervention: SCD's Lines/Catheters IV Catheter Type (from Nrs): Peripheral IV Central line still needed: Yes Urinary Cath still in place: No Assessment/Plan Chief Complaint/Hosp Course Patient is a mild hyponatremia, continue IV fluids, BMP tomorrow, patient denies any chest pain denies any nausea vomiting. ASSESSMENT AND PLAN: 1. Intractable nausea and vomiting. Continue Zofran p.r.n. for nausea. Dr. Lopez is following the patient from gastroenterology consultation. S/p upper endoscopy with notion of gastritis. Continue Pepcid. 2. Chest pain, rule out acute coronary syndrome. Dr. Denson is asked to see patient in cardiology consultation. 3. Hypothyroidism. Continue Synthroid. 4. Possible adverse reaction to selective serotonin reuptake inhibitor. Hold paroxetine for now. 5. Acute hyponatremia, resolving. 6. Acute metabolic encephalopathy secondary to severe hyponatremia. 7. Chronic obstructive pulmonary disease. Continue Advair, continue breathing treatment p.r.n. for shortness of breath. 8. Hypertension. Continue Norvasc and Cozaar. 9. Diabetes mellitus. Continue metformin and NovoLog per mild algorithm sliding scale, carbohydrate-controlled diet. Further recommendations based on clinical course. Plan of care discussed with Dr. Zaman. Problems: Subjective 24 Hr Interval Summary Free Text/Dictation Constitutional: alert, oriented Head: atraumatic, normocephalic Neck: supple Respiratory: normal air movement Cardiovascular: nl pulses Gastrointestinal: non-tender, soft Extremities: normal pulses Neurological: nl mental status Exam/Review of Systems Vital Signs Vitals Vital Signs Date Time Temp Pulse Resp B/P Pulse Ox O2 Delivery O2 Flow Rate FiO2 04/23/17 07:52 98.2 88 18 140/67 94 04/22/17 08:04 Room Air Intake and Output 04/22/17 04/22/17 04/23/17 15:00 23:00 07:00 Intake Total 150 ml 1320 ml 510 ml Balance 150 ml 1320 ml 510 ml Exam Constitutional: alert, oriented Head: atraumatic, normocephalic Neck: supple Respiratory: normal air movement Cardiovascular: nl pulses Gastrointestinal: non-tender, soft Extremities: normal pulses Neurological: nl mental status Results Result Diagram: 04/23/17 0510 04/23/17 0510 Results 24 hrs Laboratory Tests Test 04/22/17 17:27 04/22/17 21:08 04/23/17 05:10 04/23/17 08:18 Bedside Glucose 186 146 111 White Blood Count 8.4 Red Blood Count 4.13 L Hemoglobin 12.5 Hematocrit 37.7 Mean Corpuscular Volume 91.3 Mean Corpuscular Hemoglobin 30.3 Mean Corpuscular Hemoglobin Concent 33.2 Red Cell Distribution Width 12.1 Platelet Count 276 Mean Platelet Volume 8.6 Neutrophils % 66.0 Lymphocytes % 17.7 Monocytes % 10.4 Eosinophils % 4.7 Basophils % 0.7 Nucleated Red Blood Cells % 0.0 Neutrophils # 5.5 Lymphocytes # 1.5 Monocytes # 0.9 Eosinophils # 0.4 Basophils # 0.1 Nucleated Red Blood Cells # 0.0 Sodium Level 132 L Potassium Level 4.1 Chloride Level 95 L Carbon Dioxide Level 29 Anion Gap 12 Blood Urea Nitrogen 13 Creatinine 0.70 Glucose Level 118 Calcium Level 9.4 Test 04/23/17 12:20 Bedside Glucose 133 Medications Medications Current Medications Sodium Chloride (NS) 1,000 ml @ 75 mls/hr [id number] IV Last administered on 04:42; Admin Dose 50 MLS/HR; Start 04/15/17 at 20:38 Ondansetron HCl (Zofran Inj) 4 mg Q6H PRN IV NAUSEA AND/OR VOMITING; Start at 21:00 Acetaminophen (Tylenol Tab) 650 mg Q6H PRN PO PAIN LEVEL 1-3 OR FEVER Last administered on 04/21/17 23:04; Admin Dose 650 MG; Start 04/15/17 at 21:00 Morphine Sulfate (morphine) 2 mg Q4H PRN IV PAIN LEVEL 7-10; Start 04/15/17 at 21:00 Enoxaparin Sodium (Lovenox) 30 mg DAILY SC Last administered on 04/23/17 09:05 ; Admin Dose 30 MG; Start 04/16/17 at 09:00 Diagnostic Test (Pha) (Accu-Chek) Check 2 am Accucheck only if... 02 XX ; Start 04/17/17 at 02:00 Miscellaneous Information 1 ea NOTE XX ; Start 04/16/17 at 11:30 Glucose (Glutose) 15 gm Q15M PRN PO DECREASED GLUCOSE; Start 04/16/17 at 11:30 Glucose (Glutose) 22.5 gm Q15M PRN PO DECREASED GLUCOSE; Start 04/16/17 at 11: 30 Dextrose (D50w Syringe) 25 ml Q15M PRN IV DECREASED GLUCOSE; Start 04/16/17 at 11:30 Dextrose (D50w Syringe) 50 ml Q15M PRN IV DECREASED GLUCOSE; Start 04/16/17 at 11:30 Glucagon (Glucagen) 1 mg Q15M PRN IM DECREASED GLUCOSE; Start 04/16/17 at 11:30 Glucose (Glutose) 15 gm Q15M PRN BUCCAL DECREASED GLUCOSE; Start 04/16/17 at 11 :30 Salmeterol Xinafoate/ Fluticasone (Advair 250/50 Diskus) 1 inh BID INH Last administered on 04/23/17 08:56; Admin Dose 1 INH; Start 04/16/17 at 21:00 Hydralazine HCl (Apresoline) 10 mg Q6H PRN IV FOR SBP GREATER THAN 160 Last administered on 04/19/17 13:02; Admin Dose 10 MG; Start 04/16/17 at 21:30 Aspirin (Aspirin) 81 mg DAILY PO Last administered on 04/23/17 08:56; Admin Dose 81 MG; Start 04/18/17 at 09:00 Diltiazem HCl (Cardizem Cd) 180 mg DAILY PO Last administered on 04/23/17 08:55 ; Admin Dose 180 MG; Start 04/18/17 at 09:00 Atorvastatin Calcium (Lipitor) 10 mg DAILY@21 PO Last administered on 04/22/17 21:10; Admin Dose 10 MG; Start 04/18/17 at 21:00 Amlodipine Besylate (Norvasc) 5 mg BID PO Last administered on 04/23/17 08:56; Admin Dose 5 MG; Start 04/18/17 at 21:00 Losartan Potassium (Cozaar) 50 mg BID PO Last administered on 04/23/17 08:56; Admin Dose 50 MG; Start 04/19/17 at 21:00 Famotidine (Pepcid) 20 mg DAILY PO Last administered on 04/23/17 08:56; Admin Dose 20 MG; Start 04/21/17 at 09:00 Guaifenesin/ Dextromethorphan (Robitussin Dm Liquid Cup) 10 ml Q6H PRN PO COUGH Last administered on 04/23/17 09:13; Admin Dose 10 ML; Start 04/22/17 at 14 :00 OVIDIO YBARRA Apr 23, 2017 15:24
--- NOTE | 2017-04-23 18:59 | CONS ---
Date/Time of Note Date/Time of Note DATE: 04/23/17 TIME: 18:56 Assessment/Plan Assessment/Plan Chief Complaint/Hosp Course Nausea, vomiting, shortness of breath and chest pain Hypertension Preserved ejection fraction Mild left ventricular hypertrophy Diabetes -Blood pressure reasonably controlled - hyponatremia - on NS Problems: Consultation Date/Type/Reason Admit Date/Time Apr 18, 2017 at 16:27 Initial Consult Date 04/21/17 Type of Consultation: NEPHROLOGY Referring Provider: ROSIE HERNANDEZ MD 24 HR Interval Summary Free Text/Dictation reports cough otherwise feels well Exam/Review of Systems Vital Signs Vitals Vital Signs Date Time Temp Pulse Resp B/P Pulse Ox O2 Delivery O2 Flow Rate FiO2 04/23/17 07:52 98.2 88 18 140/67 94 04/22/17 08:04 Room Air Intake and Output 04/22/17 04/22/17 04/23/17 15:00 23:00 07:00 Intake Total 150 ml 1320 ml 510 ml Balance 150 ml 1320 ml 510 ml Exam Constitutional: alert, oriented Head: atraumatic, normocephalic Respiratory: clear to auscultation, normal air movement Cardiovascular: regular rate and rhythm Gastrointestinal: soft Results Result Diagram: 04/23/17 0510 04/23/17 0510 Results 24 hrs Laboratory Tests Test 04/22/17 21:08 04/23/17 05:10 04/23/17 08:18 04/23/17 12:20 Bedside Glucose 146 111 133 White Blood Count 8.4 Red Blood Count 4.13 L Hemoglobin 12.5 Hematocrit 37.7 Mean Corpuscular Volume 91.3 Mean Corpuscular Hemoglobin 30.3 Mean Corpuscular Hemoglobin Concent 33.2 Red Cell Distribution Width 12.1 Platelet Count 276 Mean Platelet Volume 8.6 Neutrophils % 66.0 Lymphocytes % 17.7 Monocytes % 10.4 Eosinophils % 4.7 Basophils % 0.7 Nucleated Red Blood Cells % 0.0 Neutrophils # 5.5 Lymphocytes # 1.5 Monocytes # 0.9 Eosinophils # 0.4 Basophils # 0.1 Nucleated Red Blood Cells # 0.0 Sodium Level 132 L Potassium Level 4.1 Chloride Level 95 L Carbon Dioxide Level 29 Anion Gap 12 Blood Urea Nitrogen 13 Creatinine 0.70 Glucose Level 118 Calcium Level 9.4 Test 04/23/17 17:22 Bedside Glucose 131 Medications Medications Current Medications Sodium Chloride (NS) 1,000 ml @ 75 mls/hr [id number] IV Last administered on 04:42; Admin Dose 50 MLS/HR; Start 04/15/17 at 20:38 Ondansetron HCl (Zofran Inj) 4 mg Q6H PRN IV NAUSEA AND/OR VOMITING; Start at 21:00 Acetaminophen (Tylenol Tab) 650 mg Q6H PRN PO PAIN LEVEL 1-3 OR FEVER Last administered on 04/21/17 23:04; Admin Dose 650 MG; Start 04/15/17 at 21:00 Morphine Sulfate (morphine) 2 mg Q4H PRN IV PAIN LEVEL 7-10; Start 04/15/17 at 21:00 Enoxaparin Sodium (Lovenox) 30 mg DAILY SC Last administered on 04/23/17 09:05 ; Admin Dose 30 MG; Start 04/16/17 at 09:00 Diagnostic Test (Pha) (Accu-Chek) Check 2 am Accucheck only if... 02 XX ; Start 04/17/17 at 02:00 Miscellaneous Information 1 ea NOTE XX ; Start 04/16/17 at 11:30 Glucose (Glutose) 15 gm Q15M PRN PO DECREASED GLUCOSE; Start 04/16/17 at 11:30 Glucose (Glutose) 22.5 gm Q15M PRN PO DECREASED GLUCOSE; Start 04/16/17 at 11: 30 Dextrose (D50w Syringe) 25 ml Q15M PRN IV DECREASED GLUCOSE; Start 04/16/17 at 11:30 Dextrose (D50w Syringe) 50 ml Q15M PRN IV DECREASED GLUCOSE; Start 04/16/17 at 11:30 Glucagon (Glucagen) 1 mg Q15M PRN IM DECREASED GLUCOSE; Start 04/16/17 at 11:30 Glucose (Glutose) 15 gm Q15M PRN BUCCAL DECREASED GLUCOSE; Start 04/16/17 at 11 :30 Salmeterol Xinafoate/ Fluticasone (Advair 250/50 Diskus) 1 inh BID INH Last administered on 04/23/17 08:56; Admin Dose 1 INH; Start 04/16/17 at 21:00 Hydralazine HCl (Apresoline) 10 mg Q6H PRN IV FOR SBP GREATER THAN 160 Last administered on 04/19/17 13:02; Admin Dose 10 MG; Start 04/16/17 at 21:30 Aspirin (Aspirin) 81 mg DAILY PO Last administered on 04/23/17 08:56; Admin Dose 81 MG; Start 04/18/17 at 09:00 Diltiazem HCl (Cardizem Cd) 180 mg DAILY PO Last administered on 04/23/17 08:55 ; Admin Dose 180 MG; Start 04/18/17 at 09:00 Atorvastatin Calcium (Lipitor) 10 mg DAILY@21 PO Last administered on 04/22/17 21:10; Admin Dose 10 MG; Start 04/18/17 at 21:00 Amlodipine Besylate (Norvasc) 5 mg BID PO Last administered on 04/23/17 08:56; Admin Dose 5 MG; Start 04/18/17 at 21:00 Losartan Potassium (Cozaar) 50 mg BID PO Last administered on 04/23/17 08:56; Admin Dose 50 MG; Start 04/19/17 at 21:00 Famotidine (Pepcid) 20 mg DAILY PO Last administered on 04/23/17 08:56; Admin Dose 20 MG; Start 04/21/17 at 09:00 Guaifenesin/ Dextromethorphan (Robitussin Dm Liquid Cup) 10 ml Q6H PRN PO COUGH Last administered on 04/23/17 09:13; Admin Dose 10 ML; Start 04/22/17 at 14 :00 VIRGINIA PAT MD Apr 23, 2017 18:59
[2017-04-23 19:18] VITALS: BP 141/68; RESP 18
[2017-04-23] MEDS: ATORVASTATIN 10 MG TAB PO SCH (20:47)
[2017-04-23] MEDS: ACETAMINOPHEN 325 MG TAB PO PRN (23:24)
[2017-04-24] MEDS: SOD CHLORIDE 0.9% 1,000 ML IV SCH ×3 (05:18→18:21)
[2017-04-24] MEDS: LEVOTHYROXINE 112 MCG TAB PO SCH (06:02)
[2017-04-24 06:29] LABS: CALCIUM 9.2 mg/dl (8.4-10.2); CREATININE 0.79 mg/dl (0.44-1.00); POTASSIUM 4.5 mmol/L (3.5-5.1)
[2017-04-24 07:38] VITALS: BP 128/63; RESP 19
[2017-04-24] MEDS: ACCU-CHEK XX SCH ×4 (07:48→20:22)
[2017-04-24] MEDS: DILTIAZEM (CD) 180 MG CAP PO SCH (08:40)
[2017-04-24] MEDS: ASPIRIN 81 MG TAB PO SCH (08:40)
[2017-04-24] MEDS: LOSARTAN 50 MG TAB PO SCH ×2 (08:40→20:21)
[2017-04-24] MEDS: FAMOTIDINE 20 MG TAB PO SCH (08:40)
[2017-04-24] MEDS: AMLODIPINE 5 MG TAB PO SCH ×2 (08:41→20:21)
[2017-04-24] MEDS: SALMETEROL/FLUTICASONE 250/50 INHA INH SCH ×2 (08:41→20:22)
[2017-04-24] MEDS: ENOXAPARIN 30 MG/0.3 ML SYG SC SCH (09:29)
[2017-04-24] MEDS: metFORMIN 500 MG TAB PO SCH ×2 (12:03→16:54)
[2017-04-24] MEDS: GUAIFENESIN/DM 5ML CUP PO PRN (12:18)
--- NOTE | 2017-04-24 12:21 | PN ---
Date/Time of Note Date/Time of Note DATE: 04/24/17 TIME: 12:20 Assessment/Plan VTE Prophylaxis VTE Prophylaxis Intervention: other Lines/Catheters IV Catheter Type (from Nrsg): Peripheral IV Urinary Cath still in place: No Subjective 24 Hr Interval Summary Respiratory: no complaints Cardiovascular: no complaints Gastrointestinal: no complaints Genitourinary: no complaints Musculoskeletal: no complaints Exam/Review of Systems Vital Signs Vitals Vital Signs Date Time Temp Pulse Resp B/P Pulse Ox O2 Delivery O2 Flow Rate FiO2 04/24/17 07:38 98.5 76 19 128/63 99 04/22/17 08:04 Room Air Intake and Output 04/23/17 04/23/17 04/24/17 15:00 23:00 07:00 Intake Total 1740 ml 910 ml Balance 1740 ml 910 ml Exam Constitutional: alert, oriented, well developed Respiratory: clear to auscultation, normal air movement Cardiovascular: nl pulses, regular rate and rhythm Gastrointestinal: non-tender, soft Neurological: nl mental status, nl speech Results Result Diagram: 04/23/17 0510 04/24/17 0535 Results 24 hrs Laboratory Tests Test 04/23/17 17:22 04/23/17 20:50 04/24/17 05:35 04/24/17 07:44 Bedside Glucose 131 138 123 Sodium Level 135 Potassium Level 4.5 Chloride Level 93 L Carbon Dioxide Level 25 Anion Gap 22 #H Blood Urea Nitrogen 16 Creatinine 0.79 Glucose Level 123 Calcium Level 9.2 Test 04/24/17 12:02 Bedside Glucose 109 Medications Medications Current Medications Sodium Chloride (NS) 1,000 ml @ 75 mls/hr [id number] IV Last administered on 23:19; Admin Dose 75 MLS/HR; Start 04/15/17 at 20:38 Ondansetron HCl (Zofran Inj) 4 mg Q6H PRN IV NAUSEA AND/OR VOMITING; Start at 21:00 Acetaminophen (Tylenol Tab) 650 mg Q6H PRN PO PAIN LEVEL 1-3 OR FEVER Last administered on 04/23/17 23:24; Admin Dose 650 MG; Start 04/15/17 at 21:00 Morphine Sulfate (morphine) 2 mg Q4H PRN IV PAIN LEVEL 7-10; Start 04/15/17 at 21:00 Enoxaparin Sodium (Lovenox) 30 mg DAILY SC Last administered on 04/24/17 09:29 ; Admin Dose 30 MG; Start 04/16/17 at 09:00 Diagnostic Test (Pha) (Accu-Chek) Check 2 am Accucheck only if... 02 XX ; Start 04/17/17 at 02:00 Miscellaneous Information 1 ea NOTE XX ; Start 04/16/17 at 11:30 Glucose (Glutose) 15 gm Q15M PRN PO DECREASED GLUCOSE; Start 04/16/17 at 11:30 Glucose (Glutose) 22.5 gm Q15M PRN PO DECREASED GLUCOSE; Start 04/16/17 at 11: 30 Dextrose (D50w Syringe) 25 ml Q15M PRN IV DECREASED GLUCOSE; Start 04/16/17 at 11:30 Dextrose (D50w Syringe) 50 ml Q15M PRN IV DECREASED GLUCOSE; Start 04/16/17 at 11:30 Glucagon (Glucagen) 1 mg Q15M PRN IM DECREASED GLUCOSE; Start 04/16/17 at 11:30 Glucose (Glutose) 15 gm Q15M PRN BUCCAL DECREASED GLUCOSE; Start 04/16/17 at 11 :30 Salmeterol Xinafoate/ Fluticasone (Advair 250/50 Diskus) 1 inh BID INH Last administered on 04/24/17 08:41; Admin Dose 1 INH; Start 04/16/17 at 21:00 Hydralazine HCl (Apresoline) 10 mg Q6H PRN IV FOR SBP GREATER THAN 160 Last administered on 04/19/17 13:02; Admin Dose 10 MG; Start 04/16/17 at 21:30 Aspirin (Aspirin) 81 mg DAILY PO Last administered on 04/24/17 08:40; Admin Dose 81 MG; Start 04/18/17 at 09:00 Diltiazem HCl (Cardizem Cd) 180 mg DAILY PO Last administered on 04/24/17 08:40 ; Admin Dose 180 MG; Start 04/18/17 at 09:00 Atorvastatin Calcium (Lipitor) 10 mg DAILY@21 PO Last administered on 04/23/17 20:47; Admin Dose 10 MG; Start 04/18/17 at 21:00 Amlodipine Besylate (Norvasc) 5 mg BID PO Last administered on 04/24/17 08:41; Admin Dose 5 MG; Start 04/18/17 at 21:00 Losartan Potassium (Cozaar) 50 mg BID PO Last administered on 04/24/17 08:40; Admin Dose 50 MG; Start 04/19/17 at 21:00 Famotidine (Pepcid) 20 mg DAILY PO Last administered on 04/24/17 08:40; Admin Dose 20 MG; Start 04/21/17 at 09:00 Guaifenesin/ Dextromethorphan (Robitussin Dm Liquid Cup) 10 ml Q6H PRN PO COUGH Last administered on 04/24/17 12:18; Admin Dose 10 ML; Start 04/22/17 at 14 :00 RAVIN BARRIOS Apr 24, 2017 12:21
--- NOTE | 2017-04-24 12:26 | CONS ---
Date/Time of Note Date/Time of Note DATE: 04/24/17 TIME: 12:24 Assessment/Plan Assessment/Plan Additional Assessment/Plan 1. Severe Hyponatremia with Na 113 on admission - pt has initially Hypovolemic hyponatremia with Na 113 on admission which corrected to 134 then again dropping down despite being on IVF NS at 50 cc.hr- now improved to 135 on 04/22/17 2. s/p Acute encephalopathy 2/2 severe hyponatremia 3. HTN 4. HL 5. Diabetes melitus Plan: Na better, d/c IV fluids EF normal on ECHO will follow up follow up wiht Dr.Kalpesh Ellison in 1-2 week after discharge Consultation Date/Type/Reason Admit Date/Time Apr 18, 2017 at 16:27 Initial Consult Date 04/21/17 Type of Consultation: NEPHROLOGY Referring Provider: ROSIE HERNANDEZ MD 24 HR Interval Summary Free Text/Dictation no acute events, Electrolytes stable Exam/Review of Systems Vital Signs Vitals Vital Signs Date Time Temp Pulse Resp B/P Pulse Ox O2 Delivery O2 Flow Rate FiO2 04/24/17 07:38 98.5 76 19 128/63 99 04/22/17 08:04 Room Air Intake and Output 04/23/17 04/23/17 04/24/17 15:00 23:00 07:00 Intake Total 1740 ml 910 ml Balance 1740 ml 910 ml Exam Constitutional: alert, oriented Psych: no complaints Head: normocephalic ENMT: nl external ears & nose Neck: supple Respiratory: clear to auscultation, normal air movement Cardiovascular: regular rate and rhythm Gastrointestinal: bowel sounds, non-tender, soft Musculoskeletal: nl extremities to inspection Extremities: normal pulses 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 Lymph: nl lymph nodes Results Result Diagram: 04/23/17 0510 04/24/17 0535 Results 24 hrs Laboratory Tests Test 04/23/17 17:22 04/23/17 20:50 04/24/17 05:35 04/24/17 07:44 Bedside Glucose 131 138 123 Sodium Level 135 Potassium Level 4.5 Chloride Level 93 L Carbon Dioxide Level 25 Anion Gap 22 #H Blood Urea Nitrogen 16 Creatinine 0.79 Glucose Level 123 Calcium Level 9.2 Test 04/24/17 12:02 Bedside Glucose 109 Medications Medications Current Medications Sodium Chloride (NS) 1,000 ml @ 75 mls/hr [id number] IV Last administered on 12:21; Admin Dose 75 MLS/HR; Start 04/15/17 at 20:38 Ondansetron HCl (Zofran Inj) 4 mg Q6H PRN IV NAUSEA AND/OR VOMITING; Start at 21:00 Acetaminophen (Tylenol Tab) 650 mg Q6H PRN PO PAIN LEVEL 1-3 OR FEVER Last administered on 04/23/17 23:24; Admin Dose 650 MG; Start 04/15/17 at 21:00 Morphine Sulfate (morphine) 2 mg Q4H PRN IV PAIN LEVEL 7-10; Start 04/15/17 at 21:00 Enoxaparin Sodium (Lovenox) 30 mg DAILY SC Last administered on 04/24/17 09:29 ; Admin Dose 30 MG; Start 04/16/17 at 09:00 Diagnostic Test (Pha) (Accu-Chek) Check 2 am Accucheck only if... 02 XX ; Start 04/17/17 at 02:00 Miscellaneous Information 1 ea NOTE XX ; Start 04/16/17 at 11:30 Glucose (Glutose) 15 gm Q15M PRN PO DECREASED GLUCOSE; Start 04/16/17 at 11:30 Glucose (Glutose) 22.5 gm Q15M PRN PO DECREASED GLUCOSE; Start 04/16/17 at 11: 30 Dextrose (D50w Syringe) 25 ml Q15M PRN IV DECREASED GLUCOSE; Start 04/16/17 at 11:30 Dextrose (D50w Syringe) 50 ml Q15M PRN IV DECREASED GLUCOSE; Start 04/16/17 at 11:30 Glucagon (Glucagen) 1 mg Q15M PRN IM DECREASED GLUCOSE; Start 04/16/17 at 11:30 Glucose (Glutose) 15 gm Q15M PRN BUCCAL DECREASED GLUCOSE; Start 04/16/17 at 11 :30 Salmeterol Xinafoate/ Fluticasone (Advair 250/50 Diskus) 1 inh BID INH Last administered on 04/24/17 08:41; Admin Dose 1 INH; Start 04/16/17 at 21:00 Hydralazine HCl (Apresoline) 10 mg Q6H PRN IV FOR SBP GREATER THAN 160 Last administered on 04/19/17 13:02; Admin Dose 10 MG; Start 04/16/17 at 21:30 Aspirin (Aspirin) 81 mg DAILY PO Last administered on 04/24/17 08:40; Admin Dose 81 MG; Start 04/18/17 at 09:00 Diltiazem HCl (Cardizem Cd) 180 mg DAILY PO Last administered on 04/24/17 08:40 ; Admin Dose 180 MG; Start 04/18/17 at 09:00 Atorvastatin Calcium (Lipitor) 10 mg DAILY@21 PO Last administered on 04/23/17 20:47; Admin Dose 10 MG; Start 04/18/17 at 21:00 Amlodipine Besylate (Norvasc) 5 mg BID PO Last administered on 04/24/17 08:41; Admin Dose 5 MG; Start 04/18/17 at 21:00 Losartan Potassium (Cozaar) 50 mg BID PO Last administered on 04/24/17 08:40; Admin Dose 50 MG; Start 04/19/17 at 21:00 Famotidine (Pepcid) 20 mg DAILY PO Last administered on 04/24/17 08:40; Admin Dose 20 MG; Start 04/21/17 at 09:00 Guaifenesin/ Dextromethorphan (Robitussin Dm Liquid Cup) 10 ml Q6H PRN PO COUGH Last administered on 04/24/17 12:18; Admin Dose 10 ML; Start 04/22/17 at 14 :00 JACINDA ELLISON MD Apr 24, 2017 12:26
[2017-04-24 19:19] VITALS: BP 141/64; RESP 18
[2017-04-24] MEDS: ATORVASTATIN 10 MG TAB PO SCH (20:20)
[2017-04-25] MEDS: ACCU-CHEK XX SCH ×3 (01:24→11:51)
[2017-04-25] MEDS: SOD CHLORIDE 0.9% 1,000 ML IV SCH ×2 (02:10→07:23)
[2017-04-25 05:30] LABS: ADD SCAN DIFF NO
[2017-04-25 05:35] LABS: BASOPHIL # 0.1 10^3/ul (0.0-0.1); EOSINOPHILS # 0.4 10^3/ul (0.0-0.5); EOSINOPHILS % 5.4 % (0.0-7.0); HEMATOCRIT 37.5 % (37.0-47.0); HEMOGLOBIN 12.2 g/dl (12.0-16.0); LYMPHOCYTES # 1.4 10^3/ul (0.8-2.9); LYMPHOCYTES % 18.1 % (15.0-51.0); MEAN CORPUSCULAR HEMOGLOBIN 30.1 pg (29.0-33.0); MEAN CORPUSCULAR HGB CONC 32.5 g/dl (32.0-37.0); MEAN CORPUSCULAR VOLUME 92.6 fl (82.0-101.0); MEAN PLATELET VOLUME 8.9 fl (7.4-10.4); MONOCYTE # 0.9 10^3/ul (0.3-0.9); MONOCYTES % 11.4 % (0.0-11.0); NEUTROPHIL # 4.9 10^3/ul (1.6-7.5); NEUTROPHILS % 63.6 % (39.0-77.0); PLATELET COUNT 290 10^3/UL (140-415); RED BLOOD COUNT 4.05 10^6/ul (4.20-5.40); RED CELL DISTRIBUTION WIDTH 12.4 % (11.5-14.5); WHITE BLOOD COUNT 7.7 10^3/ul (4.8-10.8)
[2017-04-25] MEDS: LEVOTHYROXINE 112 MCG TAB PO SCH (06:06)
[2017-04-25 06:21] LABS: CALCIUM 9.4 mg/dl (8.4-10.2); CREATININE 0.71 mg/dl (0.44-1.00); POTASSIUM 4.8 mmol/L (3.5-5.1)
[2017-04-25 07:49] VITALS: BP 139/67; RESP 16
[2017-04-25] MEDS: SALMETEROL/FLUTICASONE 250/50 INHA INH SCH (08:15)
[2017-04-25] MEDS: AMLODIPINE 5 MG TAB PO SCH (08:16)
[2017-04-25] MEDS: FAMOTIDINE 20 MG TAB PO SCH (08:16)
[2017-04-25] MEDS: LOSARTAN 50 MG TAB PO SCH (08:16)
[2017-04-25] MEDS: DILTIAZEM (CD) 180 MG CAP PO SCH (08:17)
[2017-04-25] MEDS: ASPIRIN 81 MG TAB PO SCH (08:17)
[2017-04-25] MEDS: ENOXAPARIN 30 MG/0.3 ML SYG SC SCH (08:37)
[2017-04-25] MEDS: GUAIFENESIN/DM 5ML CUP PO PRN (11:04)
[2017-04-25] MEDS: metFORMIN 500 MG TAB PO SCH (11:51)
[2017-04-25] MEDS ORDERED: FAMO20TA18 PO (14:44)
[2017-04-25] MEDS ORDERED: LOSA50TA2 PO (14:44)
[2017-04-25] MEDS ORDERED: DILT180C75 PO (14:44)
[2017-04-25] MEDS ORDERED: AMLO-145 PO (14:44)
--- NOTE | 2017-04-25 15:44 | DS ---
Date/Time of Note Date/Time of Note DATE: 04/25/17 TIME: 15:39 Discharge Summary Admission/Discharge Info Admit Date/Time Apr 18, 2017 at 16:27 Discharge Date/Time Apr 25, 2017 at 15:30 Discharge Diagnosis 1. Intractable nausea and vomiting, resolved. 2. Chest pain, acute coronary syndrome ruled out. 3. Hypothyroidism. 4. Possible adverse reaction to selective serotonin reuptake inhibitor. 5. Acute hyponatremia, resolving. 6. Acute metabolic encephalopathy secondary to severe hyponatremia, resolved 7. Chronic obstructive pulmonary disease. 8. Hypertension. 9. Diabetes mellitus. Patient Condition: Good Hx of Present Illness The patient is a 76-year-old [place] female with history of hypothyroidism, status post thyroidectomy many years ago, hypertension, diabetes, COPD, and depression. The patient presented to the emergency room with complaints of epigastric abdominal pain and multiple episodes of clear, nonbloody, nonbilious emesis over the last couple of days. The patient stated that she had emesis after ingestion of food. The patient also started on new medication of paroxetine by primary care physician for depression and anxiety. On the evaluation in the emergency room, the patient had a low sodium, was given IV fluids with no leukocytosis, no fevers. The patient underwent a CT of the abdomen and pelvis which revealed cardiomegaly, absent gallbladder, atherosclerosis, IUD in satisfactory position, degenerative changes of the spine and hips. Otherwise, unremarkable noncontrast CT of abdomen and pelvis. The patient was given hypertonic saline for hyponatremia with improvement in sodium. The patient also underwent a 12-lead EKG which revealed sinus rhythm with first degree atrioventricular block. The patient's troponin was 0.012 on admission. The patient was given Zofran for nausea, and the patient was admitted for further evaluation and management to medical surgical floor. Hospital Course 1. Intractable nausea and vomiting. Continue Zofran p.r.n. for nausea. Dr. Lopez is following the patient from gastroenterology consultation. S/p upper endoscopy with notion of gastritis. Continue Pepcid. 2. Chest pain, rule out acute coronary syndrome. Troponin was negative. patient was evaluated and followed by Dr. Denson in cardiology consultation. 3. Hypothyroidism. Continue Synthroid. 4. Possible adverse reaction to selective serotonin reuptake inhibitor. Hold paroxetine for now. 5. Acute hyponatremia, resolved. Dr. Parr was following in nephrology consultation, IV fluids giving electrolytes were closely monitored. 6. Acute metabolic encephalopathy secondary to severe hyponatremia. 7. Chronic obstructive pulmonary disease. Continue Advair, continue breathing treatment p.r.n. for shortness of breath. 8. Hypertension. BP medication was optimized by cardiology, new prescription given upon discharge. 9. Diabetes mellitus. Continue metformin and NovoLog per mild algorithm sliding scale, carbohydrate-controlled diet. Home Meds Active Scripts Losartan Potassium* (Cozaar*) 50 Mg Tablet, 50 MG PO BID for 30 Days, TAB Prov:OVIDIO YBARRA 04/25/17 Famotidine* (Famotidine*) 20 Mg Tablet, 20 MG PO DAILY for 30 Days, TAB Prov:OVIDIO YBARRA 04/25/17 Amlodipine Besylate* (Amlodipine Besylate*) 5 Mg Tablet, 5 MG PO BID for 30 Days , TAB Prov:OVIDIO YBARRA 04/25/17 Diltiazem Hcl* (Cardizem CD*) 180 Mg Cap.sr.24h, 180 MG PO DAILY for 30 Days, CAP 1 Refill Prov:OVIDIO YBARRA 04/25/17 Reported Medications Tramadol HCl (Tramadol HCl) 50 Mg Tablet, 20 MG PO Q6 Y for PAIN, #120 TAB 04/16/17 Fluticasone Propionate* (Fluticasone Propionate* Nasal) 50 Mcg/[place] - 16 Gm [place].susp, 2 SPRAYS NASAL DAILY, #1 BOTTLE TO EACH NOSTRIL 04/16/17 Lovastatin (Lovastatin) 40 Mg Tablet, 20 MG PO DAILY, #30 TAB 04/16/17 Levothyroxine Sodium* (Levothyroxine Sodium*) 112 Mcg Tablet, 112 MCG PO BEFORE BREAKFAST, #30 TAB 07/01/16 Metformin* (Glucophage*) 500 Mg Tab, 500 MG PO WITH LUNCH DINNER, #60 TAB 05/23/16 Multivitamins W-Minerals/Lut (Centrum Silver Tablet) 1 Tab Tablet, 1 TAB PO BID 02/20/12 Aspirin* (Aspirin* Chew) 81 Mg Tab.chew, 81 MG PO DAILY 02/20/12 Discontinued Reported Medications Losartan Potassium* (Losartan Potassium*) 50 Mg Tablet, 50 MG PO DAILY, TAB 04/16/17 Ramelteon (Rozerem) 8 Mg Tablet, 8 MG PO HS, TAB 04/16/17 Paroxetine Hcl* (Paroxetine*) 20 Mg Tablet, 20 MG PO DAILY, TAB 04/16/17 Oxybutynin Chloride (Oxybutynin Chloride) 1 Gm Powder, 5 GM MC QHS 04/16/17 Clonidine Hcl* (Catapres*) 0.1 Mg Tablet, 0.1 MG PO Q4H Y for HTN, TAB 07/01/16 Amlodipine Besylate* (Norvasc*) 5 Mg Tablet, 5 MG PO DAILY, TAB 05/23/16 Discontinued Scripts Omeprazole* (Omeprazole*) 20 Mg Capsule.dr, 20 MG PO BID, #60 CAP Prov:EARL VALENCIA MD 07/02/16 Follow-up Plan Follow-up with PMD in 1 -2, weeks BMP in 1 -2 weeks Primary Care Provider Earl Valencia MD Time spent on discharge: > 30 minutes Pending Labs Laboratory Tests Test 04/24/17 16:53 04/24/17 20:19 04/25/17 05:15 04/25/17 07:44 Bedside Glucose 102mg/dL (70-220) 165mg/dL (70-220) 124mg/dL (70-220) White Blood Count 7.710^3/ul (4.8-10.8) Red Blood Count 4.0510^6/ul (4.20-5.40) Hemoglobin 12.2g/dl (12.0-16.0) Hematocrit 37.5% (37.0-47.0) Mean Corpuscular Volume 92.6fl (82.0-101.0) Mean Corpuscular Hemoglobin 30.1pg (29.0-33.0) Mean Corpuscular Hemoglobin Concent 32.5g/dl (32.0-37.0) Red Cell Distribution Width 12.4% (11.5-14.5) Platelet Count 28584^3/UL (140-415) Mean Platelet Volume 8.9fl (7.4-10.4) Neutrophils % 63.6% (39.0-77.0) Lymphocytes % 18.1% (15.0-51.0) Monocytes % 11.4% (0.0-11.0) Eosinophils % 5.4% (0.0-7.0) Basophils % 1.0% (0.0-2.0) Nucleated Red Blood Cells % 0.0/100WBC (0.0-0.0) Neutrophils # 4.910^3/ul (1.6-7.5) Lymphocytes # 1.410^3/ul (0.8-2.9) Monocytes # 0.910^3/ul (0.3-0.9) Eosinophils # 0.410^3/ul (0.0-0.5) Basophils # 0.110^3/ul (0.0-0.1) Nucleated Red Blood Cells # 0.010^3/ul (0.0-0.0) Sodium Level 137mmol/L (135-144) Potassium Level 4.8mmol/L (3.5-5.1) Chloride Level 97mmol/L (97-110) Carbon Dioxide Level 26mmol/L (21-31) Anion Gap 19 (8-16) Blood Urea Nitrogen 16mg/dl (7-20) Creatinine 0.71mg/dl (0.44-1.00) Glucose Level 128mg/dl (70-220) Calcium Level 9.4mg/dl (8.4-10.2) Test 04/25/17 11:51 Bedside Glucose 115mg/dL (70-220) OVIDIO YBARRA Apr 25, 2017 15:44
--- NOTE | 2017-04-25 15:49 | CONS ---
Date/Time of Note Date/Time of Note DATE: 04/25/17 TIME: 12:47 Assessment/Plan Assessment/Plan Additional Assessment/Plan Nausea, vomiting, shortness of breath and chest pain, resolved Hypertension Preserved ejection fraction Mild left ventricular hypertrophy Diabetes -Patient continues to feel better. Blood pressure trend overall remains stable. DC planning Consultation Date/Type/Reason Admit Date/Time Apr 18, 2017 at 16:27 Type of Consultation: cv Referring Provider: ROSIE HERNANDEZ MD 24 HR Interval Summary Free Text/Dictation Patient denies chest pain or shortness of breath Exam/Review of Systems Vital Signs Vitals Vital Signs Date Time Temp Pulse Resp B/P Pulse Ox O2 Delivery O2 Flow Rate FiO2 04/25/17 07:49 97.9 86 16 139/67 95 04/22/17 08:04 Room Air Intake and Output 04/24/17 04/24/17 04/25/17 15:00 23:00 07:00 Intake Total 500 ml 1375 ml 1270 ml Balance 500 ml 1375 ml 1270 ml Exam No apparent distress, family at bedside Constitutional: alert, oriented Head: normocephalic Respiratory: clear to auscultation, normal air movement Cardiovascular: other (S1-S2 heard), regular rate and rhythm Gastrointestinal: bowel sounds, non-tender, soft Extremities: other (No edema) Results Result Diagram: 04/25/17 0515 04/25/17 0515 Results 24 hrs Laboratory Tests Test 04/24/17 16:53 04/24/17 20:19 04/25/17 05:15 04/25/17 07:44 Bedside Glucose 102 165 124 White Blood Count 7.7 Red Blood Count 4.05 L Hemoglobin 12.2 Hematocrit 37.5 Mean Corpuscular Volume 92.6 Mean Corpuscular Hemoglobin 30.1 Mean Corpuscular Hemoglobin Concent 32.5 Red Cell Distribution Width 12.4 Platelet Count 290 Mean Platelet Volume 8.9 Neutrophils % 63.6 Lymphocytes % 18.1 Monocytes % 11.4 H Eosinophils % 5.4 Basophils % 1.0 Nucleated Red Blood Cells % 0.0 Neutrophils # 4.9 Lymphocytes # 1.4 Monocytes # 0.9 Eosinophils # 0.4 Basophils # 0.1 Nucleated Red Blood Cells # 0.0 Sodium Level 137 Potassium Level 4.8 Chloride Level 97 Carbon Dioxide Level 26 Anion Gap 19 H Blood Urea Nitrogen 16 Creatinine 0.71 Glucose Level 128 Calcium Level 9.4 Test 04/25/17 11:51 Bedside Glucose 115 Grant Denson DO Apr 25, 2017 15:48
--- NOTE | 2017-04-25 17:29 | CONS ---
Date/Time of Note Date/Time of Note DATE: 04/25/17 TIME: 17:23 Assessment/Plan Assessment/Plan Additional Assessment/Plan 1. Severe Hyponatremia with Na 113 on admission - pt has initially Hypovolemic hyponatremia with Na 113 on admission which corrected to 134 then again dropping down despite being on IVF NS at 50 cc.hr- now improved to 135 on 04/22/17 2. s/p Acute encephalopathy 2/2 severe hyponatremia 3. HTN 4. HL 5. Diabetes melitus Plan: Na better, d/c IV fluids EF normal on ECHO will follow up follow up wiht Dr.Kalpesh Ellison in 1-2 week after discharge Consultation Date/Type/Reason Admit Date/Time Apr 18, 2017 at 16:27 Initial Consult Date 04/21/17 Type of Consultation: NEPHROLOGY Referring Provider: ROSIE HERNANDEZ MD 24 HR Interval Summary Free Text/Dictation pt was seen in Early AM, Bp stable Exam/Review of Systems Vital Signs Vitals Vital Signs Date Time Temp Pulse Resp B/P Pulse Ox O2 Delivery O2 Flow Rate FiO2 04/25/17 07:49 97.9 86 16 139/67 95 04/22/17 08:04 Room Air Intake and Output 04/24/17 04/24/17 04/25/17 15:00 23:00 07:00 Intake Total 500 ml 1375 ml 1270 ml Balance 500 ml 1375 ml 1270 ml Exam Constitutional: alert, oriented Psych: no complaints Head: normocephalic ENMT: nl external ears & nose Neck: supple Respiratory: clear to auscultation, normal air movement Cardiovascular: regular rate and rhythm Gastrointestinal: bowel sounds, non-tender, soft Musculoskeletal: nl extremities to inspection Extremities: normal pulses 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 Lymph: nl lymph nodes Results Result Diagram: 04/25/17 0515 04/25/17 0515 Results 24 hrs Laboratory Tests Test 04/24/17 20:19 04/25/17 05:15 04/25/17 07:44 04/25/17 11:51 Bedside Glucose 165 124 115 White Blood Count 7.7 Red Blood Count 4.05 L Hemoglobin 12.2 Hematocrit 37.5 Mean Corpuscular Volume 92.6 Mean Corpuscular Hemoglobin 30.1 Mean Corpuscular Hemoglobin Concent 32.5 Red Cell Distribution Width 12.4 Platelet Count 290 Mean Platelet Volume 8.9 Neutrophils % 63.6 Lymphocytes % 18.1 Monocytes % 11.4 H Eosinophils % 5.4 Basophils % 1.0 Nucleated Red Blood Cells % 0.0 Neutrophils # 4.9 Lymphocytes # 1.4 Monocytes # 0.9 Eosinophils # 0.4 Basophils # 0.1 Nucleated Red Blood Cells # 0.0 Sodium Level 137 Potassium Level 4.8 Chloride Level 97 Carbon Dioxide Level 26 Anion Gap 19 H Blood Urea Nitrogen 16 Creatinine 0.71 Glucose Level 128 Calcium Level 9.4 JACINDA ELLISON MD Apr 25, 2017 17:29
== END 2017-04-25 15:30 | disposition home or self-care (01) | DRG 640 ==
LOC: E/R 18:23 → INTOOBSV 04-16 06:16 → MS2 04-16 06:16 → OBSVTOIN 04-18 16:27
PROVIDERS: ADMIT Internal Medicine; ATTEND Internal Medicine
PROC: 0DB68ZX Excision of Stomach, Via Natural or Artificial Opening Endoscopic, Diagnostic (ICD-10-PCS; principal; 2017-04-17 13:30)
DX: E87.1 Hypo-osmolality and hyponatremia (principal); G93.41 Metabolic encephalopathy; J44.9 Chronic obstructive pulmonary disease, unspecified; Z99.81 Dependence on supplemental oxygen; E11.9 Type 2 diabetes mellitus without complications; E78.00 Pure hypercholesterolemia, unspecified; I10 Essential (primary) hypertension; M19.90 Unspecified osteoarthritis, unspecified site; R07.9 Chest pain, unspecified; E03.9 Hypothyroidism, unspecified; F32.9 Major depressive disorder, single episode, unspecified; F41.9 Anxiety disorder, unspecified; T43.225A Adverse effect of selective serotonin reuptake inhibitors, initial encounter; Z79.4 Long term (current) use of insulin; Z79.82 Long term (current) use of aspirin
CPT/HCPCS: 36415; 71020; 74176; 80048; 80053; 81001; 82533; 82962; 83690; 83930; 83935; 84300; 84439; 84443; 84481; 84484; 85025; 85610; 88305; 88312; 93005; 93306; 96361; 96374; 96375; 97162; 99217; G0378; J0360; J1650; J1815; J2405; J7030

== ENCOUNTER 2017-07-29 12:50 | Inpatient (IN) | payer MEDICARE, OTHER ==
[~2017-07-29] VITALS: Ht 162.6 cm; Wt 61.9 kg
[~2017-07-29 12:50] MED LIST changes: +AMLO-145 PO; -AMLO5TAB4 PO; -CLON0.1T14 PO; +FAMO20TA18 PO; +FLUT16SP17 NASAL; +LEVO112T57 PO; +LOSA50TA2 PO; +LOVA40TA PO; -OMEP20CA16 PO; -SYN112 PO; +TRAM50TA2 PO
[2017-07-29] MEDS ORDERED: ONDANSETRON 4 MG INJ IV STA (17:04)
[2017-07-29 17:17] LABS: BASOPHILS % 0.3 % (0.0-2.0); EOSINOPHILS % 0.2 % (0.0-7.0); HEMATOCRIT 38.8 % (37.0-47.0); HEMOGLOBIN 13.3 g/dl (12.0-16.0); LYMPHOCYTES # 1.4 10^3/ul (0.8-2.9); LYMPHOCYTES % 13.8 % (15.0-51.0); MEAN CORPUSCULAR HEMOGLOBIN 30.1 pg (29.0-33.0); MEAN CORPUSCULAR HGB CONC 34.3 g/dl (32.0-37.0); MEAN CORPUSCULAR VOLUME 87.8 fl (82.0-101.0); MEAN PLATELET VOLUME 9.1 fl (7.4-10.4); MONOCYTE # 0.5 10^3/ul (0.3-0.9); MONOCYTES % 5.1 % (0.0-11.0); NEUTROPHIL # 7.9 10^3/ul (1.6-7.5); NEUTROPHILS % 80.1 % (39.0-77.0); PLATELET COUNT 277 10^3/UL (140-415); RED BLOOD COUNT 4.42 10^6/ul (4.20-5.40); RED CELL DISTRIBUTION WIDTH 11.6 % (11.5-14.5); WHITE BLOOD COUNT 9.9 10^3/ul (4.8-10.8)
[2017-07-29 17:24] LABS: ADD UMIC YES; UR ASCORBIC ACID NEGATIVE (NEGATIVE); UR BILIRUBIN (Dip) NEGATIVE (NEGATIVE); UR BLOOD (Dip) NEGATIVE (NEGATIVE); UR CLARITY SLIGHTLY CLOUDY (CLEAR); UR COLOR YELLOW (YELLOW); UR GLUCOSE (Dip) NEGATIVE (NEGATIVE); UR KETONES (Dip) NEGATIVE (NEGATIVE); UR LEUKOCYTE ESTERASE (Dip) 1+ Leu/ul (NEGATIVE); UR MUCUS FEW /HPF (NONE SEEN); UR NITRITE (Dip) NEGATIVE (NEGATIVE); UR RBC 1 /HPF (0-5); UR SPECIFIC GRAVITY (Dip) 1.013 (1.003-1.030); UR SQUAMOUS EPITHELIAL CELL FEW /HPF (FEW); UR TOTAL PROTEIN (Dip) 1+ mg/dl (NEGATIVE); UR UROBILINOGEN (Dip) NEGATIVE (NEGATIVE)
--- NOTE | 2017-07-29 17:31 | RADRPT ---
PROCEDURE: CT Head without contrast. CLINICAL INDICATION: TECHNIQUE: The study was performed utilizing a GE 64-slice multidetector CT scanner. Direct spiral axial CT images of the brain were obtained from the vertex to the skull base without contrast. Leslie nal and sagittal reformatted images are provided. The CTDI vol is 44.81 mGy and the DLP is 720.23 mG y-cm. The images were reviewed on a PACS workstation. One or more of the following dose reduction techniques were used: Automated exposure control. Adjustment of the mA and/or kV according to patient size. Use of iterative reconstruction technique. COMPARISON: 05/23/2016 FINDINGS: Mild diffuse atrophy is seen with a compensatory ventricular enlargement. Moderate white matter dis ease in the periventricular and deep white matter is seen. The jasmine-white matter differentiation is maintained. No intra or extra-axial fluid collection or mass effect or shift in the midline struct ures is seen. The visualized paranasal sinuses, mastoid air cells, orbits, and calvarium are unrema rkable. Vascular calcifications are seen. A partial empty sella is seen. IMPRESSION: 1. No acute intracranial pathology. 2. Stable mild diffuse volume loss and moderate chronic microvascular ischemic changes. RPTAT: HPNM Physician María Date Time Electronically viewed and signed by Physician María on 07/29/2017 17:30 /
[2017-07-29 17:32] LABS: INR 0.98
[2017-07-29 17:33] LABS: PARTIAL THROMBOPLASTIN TIME 34.3 Sec (25.0-35.0)
[2017-07-29 17:35] LABS: ALANINE AMINOTRANSFERASE 46 IU/L (13-69); ALBUMIN 4.8 g/dl (3.3-4.9); ALBUMIN/GLOBULIN RATIO 1.23; ALKALINE PHOSPHATASE 67 IU/L (42-121); ANION GAP 17 (8-16); ASPARTATE AMINO TRANSFERASE 32 IU/L (15-46); BILIRUBIN,INDIRECT 0.3 mg/dl (0-1.1); BILIRUBIN,TOTAL 0.3 mg/dl (0.2-1.3); BLOOD UREA NITROGEN 16 mg/dl (7-20); CALCIUM 10.6 mg/dl (8.4-10.2); CARBON DIOXIDE 26 mmol/L (21-31); CHLORIDE 82 mmol/L (97-110); CREATININE 1.01 mg/dl (0.44-1.00); GLUCOSE 137 mg/dl (70-220); POTASSIUM 5.5 mmol/L (3.5-5.1); TOTAL PROTEIN 8.7 g/dl (6.1-8.1)
[2017-07-29 17:49] LABS: SODIUM 119 mmol/L (135-144); TROPONIN-I < 0.012 ng/ml (0.00-0.12)
[2017-07-29] MEDS ORDERED: NITROFURANTOIN (SR) 100 MG CAP PO ONE (18:00)
--- NOTE | 2017-07-29 18:12 | RADRPT ---
PROCEDURE: CT Abdomen and Pelvis without contrast. CLINICAL INDICATION: Abdominal pain. TECHNIQUE: CT scan of the abdomen and pelvis without contrast was performed on a multidetector hig h-resolution CT scanner. Coronal and sagittal reformatted images were obtained from the axial [facility] e images. Images were reviewed on a high-resolution PACS workstation. One or more of the following d ose reduction techniques were used: Automated exposure control, adjustment of the mA and/or kV accor ding to patient size and use of iterative reconstruction technique. The total exam CTDI equals 7.8 m Gy and the total exam DLP equals 390 mGy-cm. COMPARISON: 04/15/2017 FINDINGS: CT abdomen: There is a smaller calcified granuloma in the right lung base. There is mild bibasilar atelectasis. The heart size is large. No pericardial effusion identified. The liver demonstrates normal size and density. No liver mass identified. The gallbladder is not visible and is likely surgically absent.. There is no intrahepatic or extrahepatic biliary dilatation. The spleen is normal in size. No focal splenic abnormality identified. No gross abnormality of the stomach is identified. The pancreas is unremarkable. The adrenal glands appear normal. There is a 4 mm exophytic hyperdense cyst in the lower pole of the right kidney. The kidneys are unremarkable. There is no evidence of renal mass, renal calculi or hydronephrosis. The aorta is of normal caliber. Aortic vascular calcifications are present. No adenopathy identified. The bowel and mesentery are unremarkable. CT pelvis: IUD is present in the endometrial cavity of the uterus. The pelvic organs are normal. The pelvic sidewalls and inguinal regions are clear. The sigmoid colon and rectum are remarkable for sigmoid diverticulosis. No adenopathy, free fluid or inflammatory change identified. The osseous structures are remarkable for degenerative spondylosis of the spine. No osteolytic or osteoblastic lesion is detected. IMPRESSION: 1. No mass, lymphadenopathy, or focal acute inflammatory process is identified. 2. Cardiomegaly. 3. Nonvisualization of gallbladder, likely previous cholecystectomy. 4. IUD is again noted in the uterus, unchanged. 5. 5 mm calcified nodule in the right lung base suggesting previous granulomatous disease. RPTAT: QQ .James Earl MD, MD Date Time Electronically viewed and signed by .James Earl MD, on 07/29/2017 18:11 .M/
[2017-07-29] MEDS ORDERED: FLUT1BLS INHALATION (18:27)
[2017-07-29] MEDS ORDERED: METF500T4 PO (18:28)
[2017-07-29] MEDS ORDERED: ACETAMINOPHEN 325 MG TAB PO PRN (18:30)
[2017-07-29] MEDS ORDERED: ONDANSETRON 4 MG INJ IV PRN (18:30)
--- NOTE | 2017-07-29 18:47 | ERA ---
ER Documentation Chief Complaint Date/Time DATE: 07/29/17 TIME: 18:45 Chief Complaint Complains of vomiting with headache x 3 days HPI Patient is a 76-year-old female with hypertension, diabetes, and previous hyponatremia who presents with nausea and vomiting. She has high blood pressure as well. She called her primary doctor Dr. Márquez who told her to come to the emergency department. She said that she has been vomiting anything that she eats or drinks. She was taking her blood pressure medications but would vomit those as well. She was on antibiotics for a cough which she finished today. She denies fevers. She has no headache or abdominal pain at this time. ROS All systems reviewed and are negative except as per history of present illness. Medications Home Meds Active Scripts Losartan Potassium* (Cozaar*) 50 Mg Tablet, 50 MG PO BID for 30 Days, TAB Prov:OVIDIO YBARRA 04/25/17 Famotidine* (Famotidine*) 20 Mg Tablet, 20 MG PO DAILY for 30 Days, TAB Prov:OVIDIO YBARRA 04/25/17 Amlodipine Besylate* (Amlodipine Besylate*) 5 Mg Tablet, 5 MG PO BID for 30 Days , TAB Prov:OVIDIO YBARRA 04/25/17 Reported Medications Metformin Hcl* (Metformin Hcl*) 500 Mg Tablet, 500 MG PO WITH MEALS, #90 TAB THREE TIMES DAILY 07/29/17 Fluticasone/Vilanterol (Breo Ellipta 200-25 Mcg INH) 1 Each Blst.w.dev, 1 PUFF INHALATION QAM, #1 INHALER 07/29/17 Levothyroxine Sodium* (Levothyroxine Sodium*) 112 Mcg Tablet, 112 MCG PO BEFORE BREAKFAST, #30 TAB 07/01/16 Multivitamins W-Minerals/Lut (Centrum Silver Tablet) 1 Tab Tablet, 1 TAB PO BID 02/20/12 Aspirin* (Aspirin* Chew) 81 Mg Tab.chew, 81 MG PO DAILY 02/20/12 Discontinued Reported Medications Tramadol HCl (Tramadol HCl) 50 Mg Tablet, 20 MG PO Q6 Y for PAIN, #120 TAB 04/16/17 Fluticasone Propionate* (Fluticasone Propionate* Nasal) 50 Mcg/[place] - 16 Gm [place].susp, 2 SPRAYS NASAL DAILY, #1 BOTTLE TO EACH NOSTRIL 04/16/17 Lovastatin (Lovastatin) 40 Mg Tablet, 20 MG PO DAILY, #30 TAB 04/16/17 Metformin* (Glucophage*) 500 Mg Tab, 500 MG PO WITH LUNCH DINNER, #60 TAB 05/23/16 Discontinued Scripts Diltiazem Hcl* (Cardizem CD*) 180 Mg Cap.sr.24h, 180 MG PO DAILY for 30 Days, CAP 1 Refill Prov:OVIDIO YBARRA 04/25/17 Allergies Allergies: Coded Allergies: No Known Allergy (Unverified , 07/29/17) PMhx/Soc History of Surgery: Yes (thyroidectomy) Anesthesia Reaction: No Hx Neurological Disorder: No Hx Respiratory Disorders: No Hx Psychiatric Problems: No Hx Miscellaneous Medical Probl: Yes (HTN, DM) Hx Alcohol Use: No Hx Substance Use: No Hx Tobacco Use: No FmHx Family History: diabetes Physical Exam Vitals Vital Signs Date Time Temp Pulse Resp B/P Pulse Ox O2 Delivery O2 Flow Rate FiO2 07/29/17 13:02 98.3 77 20 136/63 96 Physical Exam Const: Moderate distress secondary to nausea and vomiting Head: Atraumatic Eyes: Normal Conjunctiva ENT: Normal External Ears, Nose and Mouth. Neck: Full range of motion..~ No meningismus. Resp: Clear to auscultation bilaterally Cardio: Regular rate and rhythm, no murmurs Abd: Soft, non tender, non distended. Normal bowel sounds Skin: No petechiae or rashes Back: No midline or flank tenderness Ext: No cyanosis, or edema Neur: Awake and alert, no slurred speech, cranial nerves II through XII intact, and strength is 5 out of 5 in all 4 extremities Psych: Normal Mood and Affect Result Diagram: 07/29/17 1645 07/29/17 1645 Results 24 hrs Laboratory Tests Test 07/29/17 16:45 White Blood Count 9.910^3/ul Red Blood Count 4.4210^6/ul Hemoglobin 13.3g/dl Hematocrit 38.8% Mean Corpuscular Volume 87.8fl Mean Corpuscular Hemoglobin 30.1pg Mean Corpuscular Hemoglobin Concent 34.3g/dl Red Cell Distribution Width 11.6% Platelet Count 67857^3/UL Mean Platelet Volume 9.1fl Neutrophils % 80.1% Lymphocytes % 13.8% Monocytes % 5.1% Eosinophils % 0.2% Basophils % 0.3% Nucleated Red Blood Cells % 0.0/100WBC Neutrophils # 7.910^3/ul Lymphocytes # 1.410^3/ul Monocytes # 0.510^3/ul Eosinophils # 0.010^3/ul Basophils # 0.010^3/ul Nucleated Red Blood Cells # 0.010^3/ul Prothrombin Time 13.0Sec Prothrombin Time Ratio 1.0 INR International Normalized Ratio 0.98 Activated Partial Thromboplast Time 34.3Sec Urine Color YELLOW Urine Clarity SLIGHTLY CLOUDY Urine pH 5.0 Urine Specific [place] 1.013 Urine Ketones NEGATIVEmg/dL Urine Nitrite NEGATIVEmg/dL Urine Bilirubin NEGATIVEmg/dL Urine Urobilinogen NEGATIVEmg/dL Urine Leukocyte Esterase 1+Megan/ul Urine Microscopic RBC 1/HPF Urine Microscopic WBC 6/HPF Urine Squamous Epithelial Cells FEW/HPF Urine Mucus FEW/HPF Urine Hemoglobin NEGATIVEmg/dL Urine Glucose NEGATIVEmg/dL Urine Total Protein 1+mg/dl Sodium Level 119mmol/L Potassium Level 5.5mmol/L Chloride Level 82mmol/L Carbon Dioxide Level 26mmol/L Anion Gap 17 Blood Urea Nitrogen 16mg/dl Creatinine 1.01mg/dl Glucose Level 137mg/dl Calcium Level 10.6mg/dl Total Bilirubin 0.3mg/dl Direct Bilirubin 0.00mg/dl Indirect Bilirubin 0.3mg/dl Aspartate Amino Transf (AST/SGOT) 32IU/L Alanine Aminotransferase (ALT/SGPT) 46IU/L Alkaline Phosphatase 67IU/L Troponin I < 0.012ng/ml Total Protein 8.7g/dl Albumin 4.8g/dl Globulin 3.90g/dl Albumin/Globulin Ratio 1.23 Lipase 91U/L Current Medications Medications (Trade) Dose Ordered Sig/Keely Route PRN Reason Start Time Stop Time Status Last Admin Dose Admin Ondansetron HCl (Zofran Inj) 4 mg ONCE STAT IV 07/29/17 17:04 07/29/17 17:05 DC Nitrofurantoin Macrocrystals (Macrobid) 100 mg ONCE ONCE PO 07/29/17 18:00 07/29/17 18:01 DC Ondansetron HCl (Zofran Inj) 4 mg BRIDGE ORDER PRN IV NAUSEA AND/OR VOMITING 07/29/17 18:30 07/30/17 18:29 Acetaminophen (Tylenol Tab) 650 mg ER BRIDGE PRN PO MILD PAIN/FEVER 07/29/17 18:30 07/30/17 18:29 Procedures/MDM EKG read by me: Rate/Rhythm: Regular rate and rhythm at a normal rate Intervals: Normal Impression: No evidence of ischemia or arrhythmia CT brain shows no intracranial mass or hemorrhage per radiology. CT abdomen pelvis shows no surgical process per radiology. Patient is a 76-year-old female presents with nausea and vomiting. She was found to have a severely low sodium level of 119 showing hyponatremia. I do not want to correct this too quickly and therefore the treatment in the emergency department will be fluid restriction. I am concerned about central pontine myelinolysis with overcorrection of the sodium too quickly. The patient likely has hyponatremia secondary to nausea and vomiting but may require further workup further true cause of her hyponatremia. I spoke with Dr. Márquez who will admit the patient to a medical surgical bed. At this point I see no signs of intracranial hemorrhage or mass. I see no sign of bowel obstruction. Critical Care: Time: 35 minutes excluding all billable procedures. Treatments/Evaluations: Close monitoring and treatment of unstable vital signs, cardiorespiratory, and neurologic status, while maintaining tight balance of fluid, respiratory, and cardiac interventions. Departure Diagnosis: Primary Impression: Hyponatremia Additional Impressions: Nausea and vomiting Qualified Code: R11.2 - Non-intractable vomiting with nausea, unspecified vomiting type Cystitis Condition: LALY Duke MD Jul 29, 2017 18:47
--- NOTE | 2017-07-29 18:50 | HP ---
Date/Time of Note Date/Time of Note DATE: 07/29/17 TIME: 18:49 Assessment/Plan VTE Prophylaxis VTE Prophylaxis Intervention: ambulation Assessment/Plan Problems: (1) Hyponatremia Status: Acute Comment: This is the second time patient presents with hyponatremia following nausea, vomiting . She is not on SSRI this time so we'll have to look for other etiology including blood pressure meds and consider work up for SIADH. We 'll check urine Na, osmolality and serum osmolality and consult nephrology. Start NS after urine collected. (2) Nausea and vomiting Status: Acute Comment: Unclear if patient has been taking her PPI , will start pantoprazole IV and treat for possible UTI. Qualifiers: Vomiting type: unspecified Vomiting Intractability: non-intractable Qualified Code: R11.2 - Non-intractable vomiting with nausea, unspecified vomiting type (3) Cystitis Status: Acute Comment: Start IV levaquin until urine culture resulted. (4) Hypertension Status: Chronic Comment: Hold losartan for now since she also has high potassium, continue other meds and add clonidine for prn use. (5) COPD (chronic obstructive pulmonary disease) Status: Chronic Comment: clinically stable but small nodule noted on abd CT. Will check chest CT for other pathology since patient's presentation more consistent with interstitial disease than COPD. (6) Diabetes mellitus Status: Chronic Comment: Very mild diabetes well controlled on metformin . Will check hba1c but no need for daily accuchecks and insulin coverage. Qualifiers: Diabetes mellitus complication status: without complication HPI/ROS Admit Date/Time Admit Date/Time Hx of Present Illness 76 year old female has been having nausea and vomiting the past 3 days and was brought to ER where she was noted to have mild UTI and marked hyponatremia. Patient had similar episode in March when she was admitted with nausea, vomiting , altered mental status and severe hyponatremia. At that time, patient was on SSRI paxil for depression and work up showed hypovolemic hyponatremia. Patient was given NS and Paxil and hctz was held with resolution of hyponatremia. She also underwent EGD but result was pending at time of discharge. Current review of records showed biopsy notable for chronic gastritis. PMH/Family/Social Past Medical History Medical History: diabetes, high cholesterol, hypertension, hypothyroid, other ( Gastritis, COPD) Past Surgical History Past Surgical Hx: cholecystectomy, other (hernia repair, thyroidectomy) Family History Significant Family History: diabetes, hypertension Social History Alcohol Use: none Smoking Status: Never smoker Drug Use: none Exam/Review of Systems Vital Signs Vitals Vital Signs Date Time Temp Pulse Resp B/P Pulse Ox O2 Delivery O2 Flow Rate FiO2 07/29/17 13:02 98.3 77 20 136/63 96 Exam Constitutional: alert, oriented Head: atraumatic, normocephalic Eyes: nl conjunctiva, nl sclera ENMT: mucosa pink and moist, nl external ears & nose Neck: non-tender, supple Respiratory: clear to auscultation, normal air movement Cardiovascular: nl pulses, regular rate and rhythm Gastrointestinal: nl liver, spleen, non-tender, soft Musculoskeletal: nl extremities to inspection Neurological: nl mental status, nl speech Lymph: nl lymph nodes Labs Result Diagram: 07/29/17 1645 07/29/17 1645 EARL VALENCIA MD Jul 29, 2017 18:50
[2017-07-29 18:52] VITALS: TEMP 98
[2017-07-29 19:30] VITALS: BP 146/69; PULSE 70; RESP 16
[2017-07-29 19:43] VITALS: Ht 162.6 cm; Wt 61.9 kg
[2017-07-29 20:52] VITALS: PULSE 65
[2017-07-29 20:59] VITALS: BP 150/77; RESP 20
[2017-07-29] MEDS: AMLODIPINE 5 MG TAB PO SCH (21:30)
[2017-07-29] MEDS ORDERED: IODIXANOL LOCM 100 ML BTL ONE (21:43)
[2017-07-29] MEDS ORDERED: SOD CHLORIDE 0.9% 100 ML ONE (21:43)
--- NOTE | 2017-07-29 22:13 | RADRPT ---
PROCEDURE: CT Chest with contrast. CLINICAL INDICATION: Dyspnea, SIADH. TECHNIQUE: A CT scan of the chest with contrast was performed. Coronal and sagittal reformatted im ages were obtained from the axial source images. 100 cc Visipaque 320 were administered during exami nation without complication. CTDIvol: 5.62 mGy. DLP: 197.75 mGy-cm. One or more of the following dose reduction techniques were used: - Automated exposure control. - Adjustment of the mA and/or kV according to patient size. - Use of iterative reconstruction technique. COMPARISON: None. FINDINGS: The thyroid gland is not clearly visualized and there are surgical clips in the thyroid region, sugg estive of prior thyroidectomy. A 1.0 x 0.6 cm left paratracheal density seen in this region might re present residual thyroid tissue. No thoracic lymphadenopathy is seen. The trachea and mainstem bron chi are patent. The heart is not enlarged. There is no pericardial effusion. There is a 5 meters nodule in the left upper lobe. Mild atelectatic changes are noted in both lungs. There is no pulmonary edema or consolidation. There is no pleural effusion or pneumothorax. Limited evaluation of the upper abdomen is unremarkable. There is no suspicious osseous lesion. IMPRESSION: 1. No pulmonary edema or consolidation. 2. 5 mm nodule in the left upper lobe. In a patient at high risk for cancer, a repeat CT scan shoul d be obtained in 12 months reassess this finding. In a patient at low risk for cancer, no follow-up is necessary. 3. The thyroid gland is not clearly visualized and there are surgical clips in the thyroid region, suggestive of prior thyroidectomy. A 1.0 x 0.6 cm left paratracheal density seen in this region migh t represent residual thyroid tissue. RPTAT: HTAR .Migue Keenan MD, Date Time Electronically viewed and signed by .Migue Keenan MD, MD on 07/29/2017 22:13 .R/
[2017-07-29 23:14] VITALS: BP 112/61; RESP 20
[2017-07-30] VITALS (11 sets, daily range): BP systolic 108–123; BP diastolic 57–71; PULSE 68–95; RESP 17–20
[2017-07-30] MEDS ORDERED: LEVOFLOXACIN 500MG/D5W (PMX) 100 ML IVPB SCH (00:30)
[2017-07-30] MEDS ORDERED: ONDANSETRON 4 MG INJ IV PRN (00:30)
[2017-07-30] MEDS: SOD CHLORIDE 0.9% 1,000 ML IV SCH ×3 (01:00→21:08)
[2017-07-30] MEDS ORDERED: PANTOPRAZOLE 40 MG INJ IV SCH (06:00)
[2017-07-30] MEDS: LEVOTHYROXINE 112 MCG TAB PO SCH (06:17)
[2017-07-30 06:37] LABS: BASOPHILS % 0.5 % (0.0-2.0); EOSINOPHILS # 0.2 10^3/ul (0.0-0.5); EOSINOPHILS % 2.1 % (0.0-7.0); HEMATOCRIT 35.7 % (37.0-47.0); HEMOGLOBIN 12.3 g/dl (12.0-16.0); LYMPHOCYTES # 1.5 10^3/ul (0.8-2.9); LYMPHOCYTES % 19.3 % (15.0-51.0); MEAN CORPUSCULAR HEMOGLOBIN 30.1 pg (29.0-33.0); MEAN CORPUSCULAR HGB CONC 34.5 g/dl (32.0-37.0); MEAN CORPUSCULAR VOLUME 87.5 fl (82.0-101.0); MEAN PLATELET VOLUME 9.2 fl (7.4-10.4); MONOCYTE # 0.9 10^3/ul (0.3-0.9); MONOCYTES % 11.8 % (0.0-11.0); NEUTROPHIL # 5.3 10^3/ul (1.6-7.5); NEUTROPHILS % 65.9 % (39.0-77.0); PLATELET COUNT 262 10^3/UL (140-415); RED BLOOD COUNT 4.08 10^6/ul (4.20-5.40); RED CELL DISTRIBUTION WIDTH 11.6 % (11.5-14.5)
[2017-07-30 06:46] LABS: ALBUMIN 4.1 g/dl (3.3-4.9); ALBUMIN/GLOBULIN RATIO 1.28; BILIRUBIN,INDIRECT 0.6 mg/dl (0-1.1); BILIRUBIN,TOTAL 0.6 mg/dl (0.2-1.3); CALCIUM 8.9 mg/dl (8.4-10.2); CREATININE 0.97 mg/dl (0.44-1.00); POTASSIUM 4.2 mmol/L (3.5-5.1); TOTAL PROTEIN 7.3 g/dl (6.1-8.1)
[2017-07-30] MEDS ORDERED: metFORMIN 500 MG TAB PO SCH ×2 (07:55→08:00)
[2017-07-30 08:24] LABS: THYROID STIMULATING HORMONE 1.13 MIU/L (0.465-4.680)
[2017-07-30] MEDS ORDERED: FAMOTIDINE 20 MG TAB PO SCH (09:00)
--- NOTE | 2017-07-30 09:25 | CONS ---
DATE OF ADMISSION: 07/29/2017 DATE OF CONSULTATION: TYPE OF CONSULTATION: Renal. REQUESTING PHYSICIAN: Niki Márquez. Thank you very much for allowing me to evaluate the above patient who was admitted with nausea, vomi ting and moderate hyponatremia. HISTORICAL EVENTS: As you so well outlined, the patient was admitted here in March of this year when she presented with hyponatremia while taking Paxil and hydrochlorothiazide presenting with nausea a nd vomiting as well. Her workup having revealed chronic gastritis. Prior to discharge, her sodium normalized. Of note, is at that time urine osmolality was not obtained. She presented yesterday wi th nausea, vomiting, and vague abdominal pain for 2 days, having been on an antibiotic for approxima tely 5 days. She was by history drinking a modest amount of water. Her nausea and vomiting rapidly abated soon as she was admitted. Presently she is comfortable without cough, wheezing, shortness o f breath, chest pain, nausea, vomiting, abdominal pain or pathologic symptoms. PAST MEDICAL HISTORY: Includes hypertension, adult onset diabetes, evidence of chronic gastritis as revealed by endoscopy in March of this year, hyperlipidemia, prior cholecystectomy. Hypothyroidism. MEDICATIONS: Include: 1. Levofloxacin. 2. Amlodipine 5 mg b.i.d. 3. Aspirin 81 mg per day. 4. Lipitor 10 mg per day. 5. Clonidine p.r.n. 6. Pepcid 20 mg per day. 7. Synthroid 112 mcg per day. 8. Metformin 500 mg b.i.d. 9. Protonix b.i.d. Of note, was on admission she was not taking diuretics or psychotropics. PHYSICAL EXAMINATION: GENERAL: Gardi, comfortable-appearing female in no acute distress. VITAL SIGNS: BP 108/59, respirations were 18. She was afebrile. EYES: Extraocular muscles were full. NOSE, MOUTH, AND THROAT: Normal. NECK: Supple without jugular venous distention, thyroid enlargement or adenopathy. LUNGS: Clear. HEART: Rhythm regular. No murmur. BREASTS: No masses. ABDOMEN: Nontender. Liver and spleen were not palpable. No masses or tenderness were noted. EXTREMITIES: No edema, no calf tenderness. Pulses 2+. NEUROLOGIC: No lateralizing motor weakness. LABORATORY STUDIES: On admission, hematocrit 38.8 and this morning 35.7. White count and platelet count were normal. On admission, sodium was 119, this morning 126; creatinine 1.01, on admit 0.97. Urine osmolality was 254, calcium was normal. A TSH is pending. IMAGING STUDIES: Included a CT of the chest revealed a 5 mm nodule in the left upper lobe. CT of t he brain, mild diffuse volume loss and microvascular changes. Abdomen and pelvis was unrevealing fo r mass, adenopathy or inflammatory process. IMPRESSION: Hyponatremia that is resolving with administration of normal saline. The diagnosis of SIADH cannot be made at this point, given the urine osmolality that is less than plasma on admit. T he dilute urine may be a reflection of resolving SIADH once her nausea and vomiting abated. Urinary sodium of 41 does not reflect volume contraction, but if she was actively vomiting, this might not reflect the same, and a urinary chloride would be more helpful in making the diagnosis of volume con traction. In any event, no other intervention is needed given her correction with normal saline. I restricted her p.o. fluids to 1200 mL per day. CAT scan imaging reveals no obvious occult malignan cy. Dictated By: MIKAYLA GUZMAN/NTS Conf#: [id number] DID#: [id number] CC: NIKI MÁRQUEZ MD;*EndCC*
[2017-07-30] MEDS: ASPIRIN 81 MG TAB PO SCH (09:38)
[2017-07-30] MEDS: AMLODIPINE 5 MG TAB PO SCH ×2 (09:38→21:07)
[2017-07-30] MEDS: PANTOPRAZOLE (EC) 40 MG TAB PO SCH (18:22)
--- NOTE | 2017-07-30 18:34 | PN ---
Date/Time of Note Date/Time of Note DATE: 07/30/17 TIME: 18:29 Assessment/Plan VTE Prophylaxis VTE Prophylaxis Intervention: ambulation Lines/Catheters IV C[facility]ter Type (from [facility] Saline Lock Urinary Cath still in place: No Assessment/Plan Problems: (1) Gastritis Status: Acute Comment: No nausea or vomiting on pantoprazole. (2) Hyponatremia Status: Acute Comment: improving with NS and free fluid restriction. (3) Nausea and vomiting Status: Resolved Comment: may be due to gastritis or UTI . Now resolved. Qualifiers: Vomiting type: unspecified Vomiting Intractability: non-intractable Qualified Code: R11.2 - Non-intractable vomiting with nausea, unspecified vomiting type (4) Cystitis Status: Acute Comment: Urine culture pending . Change levaquin to po cipro today. Subjective 24 Hr Interval Summary Constitutional: no complaints Exam/Review of Systems Vital Signs Vitals Vital Signs Date Time Temp Pulse Resp B/P Pulse Ox O2 Delivery O2 Flow Rate FiO2 07/30/17 16:14 87 07/30/17 14:55 97.5 18 120/59 94 07/29/17 19:30 Room Air Intake and Output 07/29/17 07/29/17 07/30/17 15:00 23:00 07:00 Intake Total 700 ml Output Total 400 ml Balance 300 ml Exam Constitutional: alert, oriented Head: atraumatic, normocephalic Eyes: nl conjunctiva, nl sclera ENMT: mucosa pink and moist, nl external ears & nose Respiratory: clear to auscultation, normal air movement Cardiovascular: nl pulses, regular rate and rhythm Gastrointestinal: non-tender, soft Musculoskeletal: nl extremities to inspection, nl gait and stance Results Result Diagram: 07/30/17 0536 07/30/17 0536 Results 24 hrs Laboratory Tests Test 07/30/17 00:15 07/30/17 05:36 Urine Osmolality 185 L Urine Random Sodium 41 White Blood Count 8.0 Red Blood Count 4.08 L Hemoglobin 12.3 Hematocrit 35.7 L Mean Corpuscular Volume 87.5 Mean Corpuscular Hemoglobin 30.1 Mean Corpuscular Hemoglobin Concent 34.5 Red Cell Distribution Width 11.6 Platelet Count 262 Mean Platelet Volume 9.2 Neutrophils % 65.9 Lymphocytes % 19.3 Monocytes % 11.8 H Eosinophils % 2.1 Basophils % 0.5 Nucleated Red Blood Cells % 0.0 Neutrophils # 5.3 Lymphocytes # 1.5 Monocytes # 0.9 Eosinophils # 0.2 Basophils # 0.0 Nucleated Red Blood Cells # 0.0 Erythrocyte Sedimentation Rate 23 Sodium Level 126 L Potassium Level 4.2 Chloride Level 91 L Carbon Dioxide Level 26 Anion Gap 13 Blood Urea Nitrogen 14 Creatinine 0.97 Glucose Level 128 Hemoglobin A1c 6.6 H Calcium Level 8.9 Phosphorus Level 4.4 Magnesium Level 1.7 Total Bilirubin 0.6 Direct Bilirubin 0.00 Indirect Bilirubin 0.6 Aspartate Amino Transf (AST/SGOT) 26 Alanine Aminotransferase (ALT/SGPT) 39 Alkaline Phosphatase 56 Total Protein 7.3 # Albumin 4.1 Globulin 3.20 Albumin/Globulin Ratio 1.28 Amylase Level 79 Lipase 96 Thyroid Stimulating Hormone (TSH) 1.130 Medications Medications Current Medications Amlodipine Besylate (Norvasc) 5 mg BID PO Last administered on 07/30/17 09:38 ; Admin Dose 5 MG; Start 07/29/17 at 21:00 Aspirin (Aspirin) 81 mg DAILY PO Last administered on 07/30/17 09:38; Admin Dose 81 MG; Start 07/30/17 at 09:00 Clonidine 0.1 mg 0.1 mg Q6H PRN PO ELEVATED BLOOD PRESSURE; Start 07/29/17 at 21:30 Sodium Chloride 1,000 ml @ 100 mls/hr Q10H IV Last administered on 07/30/17 12:45; Admin Dose 100 MLS/HR; Start 07/30/17 at 00:30 Levofloxacin/ Dextrose (Levaquin 500mg/ D5W 100 ml (Pmx)) 100 ml @ 100 mls/hr Q24H IVPB Last administered on 07/30/17 01:06; Admin Dose 100 MLS/HR; Start 07/30/17 at 00:30 Ondansetron HCl (Zofran Inj) 4 mg Q6H PRN IV NAUSEA AND/OR VOMITING; Start 07/30/17 at 00:30 Atorvastatin Calcium (Lipitor) 10 mg HS PO ; Start 07/30/17 at 21:00 Pantoprazole (Protonix Tab) 40 mg BID@06,18 PO Last administered on 07/30/17 18:22; Admin Dose 40 MG; Start 07/30/17 at 18:00 EARL VALENCIA MD Jul 30, 2017 18:34
[2017-07-30] MEDS ORDERED: ATORVASTATIN 10 MG TAB PO SCH (21:00)
[2017-07-31] VITALS (10 sets, daily range): BP systolic 107–145; BP diastolic 58–76; PULSE 80–96; RESP 17–20
[2017-07-31] MEDS: CIPROFLOXACIN 250 MG TAB PO SCH ×2 (06:00→17:08)
[2017-07-31] MEDS: SOD CHLORIDE 0.9% 1,000 ML IV SCH (06:01)
[2017-07-31] MEDS: PANTOPRAZOLE (EC) 40 MG TAB PO SCH ×2 (06:01→17:08)
[2017-07-31 07:16] LABS: BASOPHIL # 0.1 10^3/ul (0.0-0.1); BASOPHILS % 0.9 % (0.0-2.0); EOSINOPHILS # 0.2 10^3/ul (0.0-0.5); HEMATOCRIT 36.6 % (37.0-47.0); HEMOGLOBIN 12.1 g/dl (12.0-16.0); LYMPHOCYTES # 1.3 10^3/ul (0.8-2.9); LYMPHOCYTES % 22.6 % (15.0-51.0); MEAN CORPUSCULAR HEMOGLOBIN 30.3 pg (29.0-33.0); MEAN CORPUSCULAR HGB CONC 33.1 g/dl (32.0-37.0); MEAN CORPUSCULAR VOLUME 91.5 fl (82.0-101.0); MEAN PLATELET VOLUME 9.2 fl (7.4-10.4); MONOCYTE # 0.9 10^3/ul (0.3-0.9); NEUTROPHIL # 3.2 10^3/ul (1.6-7.5); NEUTROPHILS % 56.1 % (39.0-77.0); PLATELET COUNT 250 10^3/UL (140-415); WHITE BLOOD COUNT 5.7 10^3/ul (4.8-10.8)
[2017-07-31 07:43] LABS: CALCIUM 8.2 mg/dl (8.4-10.2); CREATININE 0.88 mg/dl (0.44-1.00); MAGNESIUM 1.8 mg/dl (1.7-2.5); PHOSPHORUS 3.6 mg/dl (2.5-4.9); POTASSIUM 4.2 mmol/L (3.5-5.1)
[2017-07-31] MEDS: LEVOTHYROXINE 112 MCG TAB PO SCH (08:45)
[2017-07-31] MEDS: AMLODIPINE 5 MG TAB PO SCH (08:45)
[2017-07-31] MEDS: ASPIRIN 81 MG TAB PO SCH (08:45)
--- NOTE | 2017-07-31 08:48 | CONS ---
Date/Time of Note Date/Time of Note DATE: 07/31/17 TIME: 08:47 Assessment/Plan Assessment/Plan Additional Assessment/Plan 1. Hyponatremia resolved, IV changed to KO, and dc fluid restriction. 2. Urine cult is neg, dc abx ? 3. Abnl pul exam and cough---CXR ordered 4. Will gladly see on request. Consultation Date/Type/Reason Admit Date/Time Jul 29, 2017 at 18:01 Initial Consult Date Detailed Summary Respiratory: cough (that is not productive) Cardiovascular: No chest pain Gastrointestinal: no complaints Genitourinary: no complaints Exam/Review of Systems Vital Signs Vitals Vital Signs Date Time Temp Pulse Resp B/P Pulse Ox O2 Delivery O2 Flow Rate FiO2 07/31/17 08:15 98.1 90 18 145/65 93 07/29/17 19:30 Room Air Intake and Output 07/30/17 07/30/17 07/31/17 15:00 23:00 07:00 Intake Total 840 ml 1700 ml Balance 840 ml 1700 ml Exam Neck: No jvd Respiratory: clear to auscultation, diminished breath sounds (and basilar rales are present) Cardiovascular: regular rate and rhythm, No S3 Gastrointestinal: soft Extremities: No edema Results Result Diagram: 07/31/17 0631 07/31/17 0631 Results 24 hrs Laboratory Tests Test 07/31/17 06:31 White Blood Count 5.7 # Red Blood Count 4.00 L Hemoglobin 12.1 Hematocrit 36.6 L Mean Corpuscular Volume 91.5 Mean Corpuscular Hemoglobin 30.3 Mean Corpuscular Hemoglobin Concent 33.1 Red Cell Distribution Width 12.0 Platelet Count 250 Mean Platelet Volume 9.2 Neutrophils % 56.1 Lymphocytes % 22.6 Monocytes % 16.0 H Eosinophils % 4.0 Basophils % 0.9 Nucleated Red Blood Cells % 0.0 Neutrophils # 3.2 Lymphocytes # 1.3 Monocytes # 0.9 Eosinophils # 0.2 Basophils # 0.1 Nucleated Red Blood Cells # 0.0 Sodium Level 136 Potassium Level 4.2 Chloride Level 104 # Carbon Dioxide Level 26 Anion Gap 10 Blood Urea Nitrogen 15 Creatinine 0.88 Glucose Level 124 Calcium Level 8.2 L Phosphorus Level 3.6 Magnesium Level 1.8 Medications Medications Current Medications Amlodipine Besylate (Norvasc) 5 mg BID PO Last administered on 07/30/17 21:07 ; Admin Dose 5 MG; Start 07/29/17 at 21:00 Aspirin (Aspirin) 81 mg DAILY PO Last administered on 07/30/17 09:38; Admin Dose 81 MG; Start 07/30/17 at 09:00 Clonidine 0.1 mg 0.1 mg Q6H PRN PO ELEVATED BLOOD PRESSURE; Start 07/29/17 at 21:30 Sodium Chloride (NS) 1,000 ml @ 100 mls/hr Q10H IV Last administered on 06:01; Admin Dose 100 MLS/HR; Start 07/30/17 at 00:30 Ondansetron HCl (Zofran Inj) 4 mg Q6H PRN IV NAUSEA AND/OR VOMITING; Start 07/30/17 at 00:30 Atorvastatin Calcium (Lipitor) 10 mg HS PO Last administered on 07/30/17 21:06 ; Admin Dose 10 MG; Start 07/30/17 at 21:00 Pantoprazole (Protonix Tab) 40 mg BID@18 PO Last administered on 07/31/17 06:01; Admin Dose 40 MG; Start 07/30/17 at 18:00 Ciprofloxacin (Cipro) 250 mg BID@,18 PO Last administered on 07/31/17 06:00 ; Admin Dose 250 MG; Start 07/31/17 at 06:00 MIKAYLA NAYLOR MD Jul 31, 2017 08:48
--- NOTE | 2017-07-31 10:01 | RADRPT ---
PROCEDURE: XR Chest. CLINICAL INDICATION: Abnormal breath sounds. TECHNIQUE: Single frontal view. COMPARISON: 04/22/2017. FINDINGS: There is mild atelectasis at the right lung base. The lungs are otherwise clear. The heart size is normal. There is calcification in the aorta consistent with atherosclerosis. There is no pleural effusion. There is no pneumothorax. IMPRESSION: 1. Mild right basilar atelectasis. 2. Atherosclerosis. RPTAT: QQ .Donavan Barrera MD, MD Date Time Electronically viewed and signed by .Donavan Barrera MD, MD on 07/31/2017 10:01 .R/
[2017-07-31] MEDS ORDERED: PANT40TA4 PO (18:27)
--- NOTE | 2017-07-31 18:39 | DS ---
Date/Time of Note Date/Time of Note DATE: 07/31/17 TIME: 18:28 Discharge Summary Admission/Discharge Info Admit Date/Time Jul 29, 2017 at 18:01 Discharge Date/Time July 31, 2017 at 1828 Discharge Diagnosis 1. Hyponatremia 2. Nausea vomiting 3. Gastritis 4. Hyperkalemia 5. Dehydration 6. Urinary tract infection 7. Hypertension 8. Diabetes mellitus 9. Hypothyroidism 10. Asthma Patient Condition: Good Consults Nephrology consult Procedures Head CT, chest CT and abdominal and pelvic CT was done Hx of Present Illness 76 year old female has been having nausea and vomiting the past 3 days and was brought to ER where she was noted to have mild abnormal urinalysis and marked hyponatremia. Patient had similar episode in March when she was admitted with nausea, vomiting , altered mental status and severe hyponatremia. At that time, patient was on SSRI paxil for depression and work up showed hypovolemic hyponatremia. Patient was given NS and Paxil and hctz was held with resolution of hyponatremia. She also underwent EGD but result was pending at time of discharge. Current review of records showed biopsy notable for chronic gastritis. Hospital Course Patient had abdominal and pelvic CT done that was negative for any acute abnormalities. Her head CT was normal and her chest CT was negative for any occult malignancy. Patient was placed on pantoprazole for her chronic gastritis and started on Levaquin for her possible UTI. Her nausea and vomiting resolved. Her sodium gradually normalized on fluid restriction and gentle normal saline hydration. Nephrology sales development consultant felt we could not rule out SIADH at this time since her urine sodium and osmolality were not suggestive. Patient's losartan was initially held on admission due to hyperkalemia but the potassium came down rapidly with very gentle IV fluid hydration so that we were able to resume her blood pressure medications without any further problems. Home Meds Active Scripts Pantoprazole* (Pantoprazole*) 40 Mg Tablet., 40 MG PO BID@06,18 for 30 Days, # 60 Prov:EARL MÁRQUEZ MD 07/31/17 Losartan Potassium* (Cozaar*) 50 Mg Tablet, 50 MG PO BID for 30 Days, TAB Prov:OVIDIO YBARRA 04/25/17 Famotidine* (Famotidine*) 20 Mg Tablet, 20 MG PO DAILY for 30 Days, TAB Prov:OVIDIO YBARRA 04/25/17 Amlodipine Besylate* (Amlodipine Besylate*) 5 Mg Tablet, 5 MG PO BID for 30 Days , TAB Prov:OVIDIO YBARRA 04/25/17 Reported Medications Metformin Hcl* (Metformin Hcl*) 500 Mg Tablet, 500 MG PO WITH MEALS, #90 TAB THREE TIMES DAILY 07/29/17 Fluticasone/Vilanterol (Breo Ellipta 200-25 Mcg INH) 1 Each Blst.w.dev, 1 PUFF INHALATION QAM, #1 INHALER 07/29/17 Levothyroxine Sodium* (Levothyroxine Sodium*) 112 Mcg Tablet, 112 MCG PO BEFORE BREAKFAST, #30 TAB 07/01/16 Multivitamins W-Minerals/Lut (Centrum Silver Tablet) 1 Tab Tablet, 1 TAB PO BID 02/20/12 Aspirin* (Aspirin* Chew) 81 Mg Tab.chew, 81 MG PO DAILY 02/20/12 Discontinued Reported Medications Tramadol HCl (Tramadol HCl) 50 Mg Tablet, 20 MG PO Q6 Y for PAIN, #120 TAB 04/16/17 Fluticasone Propionate* (Fluticasone Propionate* Nasal) 50 Mcg/Arthur - 16 Gm Arthur.susp, 2 SPRAYS NASAL DAILY, #1 BOTTLE TO EACH NOSTRIL 04/16/17 Lovastatin (Lovastatin) 40 Mg Tablet, 20 MG PO DAILY, #30 TAB 04/16/17 Metformin* (Glucophage*) 500 Mg Tab, 500 MG PO WITH LUNCH DINNER, #60 TAB 05/23/16 Discontinued Scripts Diltiazem Hcl* (Cardizem CD*) 180 Mg Cap.sr.24h, 180 MG PO DAILY for 30 Days, CAP 1 Refill Prov:OVIDIO YBARRA 04/25/17 Follow-up Plan Follow-up with Dr. Earl Márquez within 1-2 weeks for recheck sodium, potassium, and blood pressure. Primary Care Provider Earl Márquez MD Time spent on discharge: < 30 minutes Pending Labs Laboratory Tests Test 07/31/17 06:31 White Blood Count 5.710^3/ul (4.8-10.8) Red Blood Count 4.0010^6/ul (4.20-5.40) Hemoglobin 12.1g/dl (12.0-16.0) Hematocrit 36.6% (37.0-47.0) Mean Corpuscular Volume 91.5fl (82.0-101.0) Mean Corpuscular Hemoglobin 30.3pg (29.0-33.0) Mean Corpuscular Hemoglobin Concent 33.1g/dl (32.0-37.0) Red Cell Distribution Width 12.0% (11.5-14.5) Platelet Count 11687^3/UL (140-415) Mean Platelet Volume 9.2fl (7.4-10.4) Neutrophils % 56.1% (39.0-77.0) Lymphocytes % 22.6% (15.0-51.0) Monocytes % 16.0% (0.0-11.0) Eosinophils % 4.0% (0.0-7.0) Basophils % 0.9% (0.0-2.0) Nucleated Red Blood Cells % 0.0/100WBC (0.0-0.0) Neutrophils # 3.210^3/ul (1.6-7.5) Lymphocytes # 1.310^3/ul (0.8-2.9) Monocytes # 0.910^3/ul (0.3-0.9) Eosinophils # 0.210^3/ul (0.0-0.5) Basophils # 0.110^3/ul (0.0-0.1) Nucleated Red Blood Cells # 0.010^3/ul (0.0-0.0) Sodium Level 136mmol/L (135-144) Potassium Level 4.2mmol/L (3.5-5.1) Chloride Level 104mmol/L (97-110) Carbon Dioxide Level 26mmol/L (21-31) Anion Gap 10 (8-16) Blood Urea Nitrogen 15mg/dl (7-20) Creatinine 0.88mg/dl (0.44-1.00) Glucose Level 124mg/dl (70-220) Calcium Level 8.2mg/dl (8.4-10.2) Phosphorus Level 3.6mg/dl (2.5-4.9) Magnesium Level 1.8mg/dl (1.7-2.5) EARL MÁRQUEZ MD Jul 31, 2017 18:38
== END 2017-07-31 19:30 | disposition home or self-care (01) | DRG 641 ==
LOC: E/R 12:50 → MS2 18:01 → TEL 20:28
PROVIDERS: ADMIT Internal Medicine; ATTEND Internal Medicine
DX: E87.1 Hypo-osmolality and hyponatremia (principal); E86.0 Dehydration; J44.9 Chronic obstructive pulmonary disease, unspecified; E87.5 Hyperkalemia; E11.9 Type 2 diabetes mellitus without complications; N30.90 Cystitis, unspecified without hematuria; I10 Essential (primary) hypertension; E03.9 Hypothyroidism, unspecified; K29.70 Gastritis, unspecified, without bleeding; J45.909 Unspecified asthma, uncomplicated
CPT/HCPCS: 36415; 70450; 71010; 71270; 74176; 80048; 80053; 81001; 82150; 83036; 83690; 83735; 83930; 83935; 84100; 84300; 84443; 84484; 85025; 85610; 85651; 85730; 87086; 93005; C9113; J1956; J7030; Q9967

== ENCOUNTER 2018-10-09 14:55 | Inpatient (IN) | END 2018-10-12 19:40 | disposition home or self-care (01) | DRG 641 ==

== ENCOUNTER 2019-06-24 11:41 | Day surgery (SDC) | payer MEDICARE, OTHER ==
[~2019-06-24] VITALS: Ht 160 cm; Wt 59.0 kg
[~2019-06-24 11:41] MED LIST changes: -AMLO-145 PO; +AMLO5TAB4 PO; -ASPI81TA3 PO; +ASPIRIN; +BENZONATATE; +BREO; +CLON-379 PO; -DILT180C75 PO; +DILTIAZEM; -FAMO20TA18 PO; -FLUT16SP17 NASAL; +IPRA3AMP29 INHALATION; +LEVO5TAB PO; +LOSA100T15 PO; -LOSA50TA2 PO; +LOVA-54 PO; -LOVA40TA PO; +MECL-77 PO; -METF500T4 PO; +MONT10TA24 PO; +MTF1000T PO; -MULT-754 PO; +MULTIVITAMINS; +OXYB5TAB22 PO; +PANT40TA4 PO; +SIMVASTATIN; -TRAM50TA2 PO; +TRAMADOL; +VIT E; +[UNRECOGNIZED DRUG - OTHER]
[2019-06-24 13:01] VITALS: Ht 160 cm; Wt 59.0 kg
[2019-06-24 13:27] VITALS: BP 159/76; PULSE 83; RESP 18
[2019-06-24] MEDS ORDERED: PROPOFOL 40 ML ONE (13:30)
[2019-06-24 14:40] VITALS: BP 152/69; PULSE 70; RESP 18
== END 2019-06-24 15:29 | disposition home or self-care (01) ==
LOC: GIL 11:41
PROVIDERS: ATTEND Internal Medicine Gastroenterology
DX: D12.3 Benign neoplasm of transverse colon (principal); K64.8 Other hemorrhoids; I10 Essential (primary) hypertension; E03.9 Hypothyroidism, unspecified; J44.9 Chronic obstructive pulmonary disease, unspecified; F17.200 Nicotine dependence, unspecified, uncomplicated
CPT/HCPCS: 82962; 88305